=== PATIENT | female | born 1940 | race Two or more races ===

== ENCOUNTER → 2016-10-11 | Outpatient (CLI) | payer MEDICARE, MEDICAID | LOC: SP 10:37 | PROVIDERS: ATTEND Internal Medicine | DX: R22.41 Localized swelling, mass and lump, right lower limb (principal) | CPT/HCPCS: 93971 ==

== ENCOUNTER → 2017-06-01 | Outpatient (CLI) | payer MEDICARE, OTHER ==
--- NOTE | 2017-06-01 17:55 | WOMENS IMAGING REPORT ---
EXAM DESCRIPTION: 3D SCREENING MAMMO BILAT COMPLETED DATE/TIME: 06/01/2017 1:39 pm REASON FOR STUDY: ROUTINE SCREENING; Z12.31 Z12.31 ENCNTR SCREEN MAMMOGRAM FOR MALIGNANT NEOPLASM O F JOLEEN COMPARISON: 2007 TECHNIQUE: Standard craniocaudal and mediolateral oblique views of each breast recorded using digita l acquisition and breast tomosynthesis. LIMITATIONS: None. FINDINGS: Findings present which are benign by mammographic criteria. No suspicious masses, calcifi cations or architectural distortion. Pertinent benign findings: Stable benign bilateral breast parenchymal and vascular calcifications Read with the assistance of CAD. .[facility] [place] - R2 Cenova Version 1.3 .[facility] - R2 Cenova Version 1.3 .[facility] - R2 Cenova Version 2.4 .[facility] - R2 Cenova Version 2.4 .[facility] - R2 Vending Machine Host/Hostess Version 9.2 Benign mammographic findings may include one or more of the following: Smooth masses, popcorn/rim/co arse calcifications, asymmetries, post-procedure changes, and lesions with long-standing stability. IMPRESSION: BENIGN MAMMOGRAPHIC FINDINGS. BIRADS 2 BREAST DENSITY: b. There are scattered areas of fibroglandular density. BIRAD: 2 BENIGN FINDING(S) RECOMMENDATION: RECOMMENDATION: ROUTINE SCREENING Please continue yearly bilateral screening tomosynthesis in May 2018. COMMENT: The patient has been notified of the results by letter per MQSA requirements. Additional no tification policies are in place for contacting patient with suspicious or incomplete findings. Quality ID #[id number]: The [employer] recommends an annual screening mammogram for women aged 40 years or over. This facility utilizes a reminder system to ensure that all patients receive reminder letters, and/or direct phone calls for appointments. This includes reminders for routine scr eening mammograms, diagnostic mammograms, or other Breast Imaging Interventions when appropriate. Th is patient will be placed in the appropriate reminder system. The [employer] (ACR) has developed recommendations for screening MRI of the breast s in certain patient populations, to be used in conjunction with mammography. Breast MRI surveillanc e may be appropriate for women with more than 20% lifetime risk of developing breast cancer as deter mined by genetic testing, significant family history of the disease, or history of mantle radiation f or Hodgkins Disease. ACR Practice Guidelines 2008. DBT Technology DBT is a type of tomographic mammography. With conventional mammography, overlapping breast tissue ma y make lesions difficult to detect, even with good compression. DBT uses an x-ray tube that rotates a round the breast, taking images at different angles. These images are then combined to create thin sl ices of the breast that the radiologist can view as a 3D reconstruction. The Quest app unit can perform full-field digital mammograms (2D imaging); or DBT (3D imaging); or both, in a combination mode that quickly performs both the mammogram and the tomosynthesis scan while the breast is still compressed. PQRS 6045F: Fluoroscopic imaging is not utilized for breast tomosynthesis. TECHNICAL DOCUMENTATION: FINDING NUMBER: (1) ASSESSMENT: (1) JOB ID: [id number] [employer]- All Rights Reserved
== END ==
LOC: WI 13:09
PROVIDERS: ATTEND Internal Medicine
DX: Z12.31 Encounter for screening mammogram for malignant neoplasm of breast (principal)
CPT/HCPCS: 77063; G0202; 77067

== ENCOUNTER 2018-01-09 12:58 | Inpatient (IN) | payer MEDICARE, OTHER ==
[2018-01-09] MEDS ORDERED: ACETAMINOPHEN 325 MG TABLET PO ONE (13:12)
--- NOTE | 2018-01-09 13:21 | ER Document Report ---
ED Extremity Problem, Lower - General Stated Complaint: FALL/HIP,ANKLE Time Seen by Provider: 01/09/18 13:16 Notes: She lost her balance. Twisted her right ankle and fell. Complaining of pain in the right foot and ankle, right hip and low back. Patient was transported by ambulance. Ambulance was unable to get IV. Complaining of severe pain in the ankle. TRAVEL OUTSIDE OF THE [place] IN LAST 30 DAYS: No - HPI Patient complains to provider of: Injury Location: Ankle, Hip Occurred: Just prior to arrival Where: Public place Onset/Duration: Sudden Quality of pain: Throbbing Severity: Moderate Pain Level: 4 Context: Fell, Twisted Recent injury: No Associated symptoms: Unable to bear weight Exacerbated by: Movement, Walking Relieved by: Rest - Related Data Allergies/Adverse Reactions: hydromorphone [From Dilaudid] Adverse Reaction (Mild, Verified 07/24/16 19:47) Generalized Itching kiwi Allergy (Severe, Uncoded 07/17/16 15:42) swelling of airway/lips raw apples Allergy (Severe, Uncoded 07/17/16 15:42) swelling of airway/lips raw carrots Allergy (Severe, Uncoded 07/17/16 15:42) swelling of airway/lips raw celery Allergy (Severe, Uncoded 07/17/16 15:42) swelling of airway/lips raw grapes Allergy (Severe, Uncoded 07/17/16 15:42) swelling of airway/lips raw nuts Allergy (Severe, Uncoded 07/17/16 15:42) swelling of airway/lips raw pears Allergy (Severe, Uncoded 07/17/16 15:42) swelling of airway/lips Past Medical History - General Information source: Patient, [facility] - Social History Smoking Status: Never Smoker Frequency of alcohol use: None Drug Abuse: None Lives with: Family Family History: Reviewed & Not Pertinent, DM - Past Medical History Cardiac Medical History: Reports: Hx Hypercholesterolemia - meds x 3+ years , Hx Hypertension - meds x 3+ years Denies: Hx Atrial Fibrillation, Hx Congestive Heart Failure, Hx Coronary Artery Disease, Hx Heart Attack, Hx Peripheral Vascular Disease, Hx Heart Murmur Neurological Medical History: Reports: Hx Cerebrovascular Accident - 1976, denies neuro deficits. Denies: Hx Seizures Endocrine Medical History: Reports: Hx Hypothyroidism. Denies: Hx Graves' Disease, Hx Hyperthyroidism GI Medical History: Reports: Hx Gastroesophageal Reflux Disease - Prilosec PRN. Denies: Hx Crohn's Disease, Hx Hiatal Hernia, Hx Irritable Bowel, Hx Liver Failure, Hx Pancreatitis, Hx Ulcer Musculoskeltal Medical History: Reports Hx Arthritis, Denies Hx Fibromyalgia, Denies Hx Multiple Sclerosis, Denies Hx Muscular Dystrophy Psychiatric Medical History: Denies: Hx Dementia Traumatic Medical History: Denies: Hx Fractures Past Surgical History: Reports: Hx Hysterectomy - KATIE s, Hx Orthopedic Surgery - tkr left, Hx Tonsillectomy. Denies: Hx Appendectomy, Hx Bowel Surgery , Hx Section, Hx Cholecystectomy, Hx Colostomy, Hx Coronary Artery Bypass Graft, Hx Gastric Bypass Surgery, Hx Herniorrhaphy, Hx Mastectomy, Hx Pacemaker, Hx Tubal Ligation - Immunizations Immunizations up to date: Yes Review of Systems - Review of Systems Constitutional: No symptoms reported EENT: No symptoms reported Cardiovascular: No symptoms reported Respiratory: No symptoms reported Gastrointestinal: No symptoms reported Genitourinary: No symptoms reported Female Genitourinary: No symptoms reported Musculoskeletal: See HPI, Deformity, Ankle swelling, Other - Hip pain, ankle and foot pain on the right Skin: No symptoms reported Hematologic/Lymphatic: No symptoms reported Neurological/Psychological: No symptoms reported Physical Exam - Vital signs Vitals: Temp Pulse Resp BP Pulse Ox 97.8 F 83 23 H 124/81 96 01/09/18 13:24 01/09/18 13:24 01/09/18 13:24 01/09/18 13:24 01/09/18 13:24 Interpretation: Normal - General General appearance: Appears well, Alert - HEENT Head: Normocephalic, Atraumatic Eyes: Normal Pupils: PERRL - Respiratory Respiratory status: No respiratory distress Chest status: Nontender Breath sounds: Normal Chest palpation: Normal - Cardiovascular Rhythm: Regular Heart sounds: Normal auscultation Murmur: No - Abdominal Inspection: Normal Distension: No distension Bowel sounds: Normal Tenderness: Nontender Organomegaly: No organomegaly - Back Back: Normal, Nontender - Extremities General upper extremity: Normal inspection, Nontender, Normal color, Normal ROM , Normal temperature General lower extremity: Normal inspection, Nontender, Tender, Edema, Normal color, Normal ROM, Normal temperature, Other - Tenderness to palpation medial lateral malleolus of the right lower extremity. Tenderness to palpation on the foot.. No: Normal weight bearing, Kyler's sign - Neurological Neuro grossly intact: Yes Cognition: Normal Orientation: AAOx4 [place] Coma Scale Eye Opening: Spontaneous [place] Coma Scale Verbal: Oriented [place] Coma Scale Motor: Obeys Commands [place] Coma Scale Total: 15 Speech: Normal Motor strength normal: LUE, RUE, LLE, RLE Sensory: Normal - Psychological Associated symptoms: Normal affect, Normal mood - Skin Skin Temperature: Warm Skin Moisture: Dry Skin Color: Normal Course - Re-evaluation Re-evalutation: 01/09/18 14:22 Patient with a fracture of the medial lateral malleolus. Consult with orthopedic surgery, Dr. Diaz. They recommend admission to the hospital for surgical treatment. Consult with patient's primary care doctor who admits to the hospital, Dr. Santizo. Will admit to the hospital at this time. Preoperative labs have been ordered. Patient is on Coumadin so will need to be taken off of Coumadin and placed on Lovenox. 01/09/18 14:58 Ankle X-Ray 01/09/18 13:21 IMPRESSION: Acute minimally displaced medial malleolus and distal fibular metaphysis fractures. There is very mild lateral subluxation of the talus with respect to the tibia best shown on mortise view Foot X-Ray 01/09/18 13:21 IMPRESSION: No acute fracture right foot Hip/Pelvis X-Ray 01/09/18 14:10 IMPRESSION: Nothing acute. No acute fracture or dislocation right hip. Lumbar Spine X-Ray 01/09/18 14:10 IMPRESSION: SPONDYLOSIS WITHOUT FRACTURE. 01/09/18 14:58 - Vital Signs Vital signs: Temp Pulse Resp BP Pulse Ox 97.8 F 83 23 H 124/81 96 01/09/18 13:24 01/09/18 13:24 01/09/18 13:24 01/09/18 13:24 01/09/18 13:24 Discharge - Discharge Clinical Impression: Bimalleolar fracture of right ankle Qualifiers: Encounter type: initial encounter Fracture type: closed Qualified Code(s): S82.841A - Displaced bimalleolar fracture of right lower leg, initial encounter for closed fracture Condition: Good Disposition: ADMITTED INPATIENT Admitting Provider: [facility] Admitted: Medical Floor
--- NOTE | 2018-01-09 13:58 | RADIOLOGY REPORT (SQ) ---
EXAM DESCRIPTION: ANKLE RIGHT COMPLETE COMPLETED DATE/TIME: 01/09/2018 1:37 pm REASON FOR STUDY: fall, pain COMPARISON: Right foot three views same date NUMBER OF VIEWS: Three views. TECHNIQUE: AP, lateral, and oblique radiographic images acquired of the right ankle. LIMITATIONS: None. FINDINGS: MINERALIZATION: Osteopenic BONES: Acute minimally displaced medial malleolar and distal fibular metaphysis fractures. JOINTS: Mild lateral subluxation of the talus with respect to the tibia. SOFT TISSUES: Diffuse soft tissue swelling. OTHER: Small dorsal and plantar calcaneal spurs IMPRESSION: Acute minimally displaced medial malleolus and distal fibular metaphysis fractures. The re is very mild lateral subluxation of the talus with respect to the tibia best shown on mortise view TECHNICAL DOCUMENTATION: JOB ID: [id number]- All Rights Reserved Reading location - IP/workstation name: [email or web address]
--- NOTE | 2018-01-09 14:00 | RADIOLOGY REPORT (SQ) ---
EXAM DESCRIPTION: FOOT RIGHT COMPLETE COMPLETED DATE/TIME: 01/09/2018 1:37 pm REASON FOR STUDY: fall, pain COMPARISON: Right ankle films same date NUMBER OF VIEWS: Three views. TECHNIQUE: AP, lateral and oblique radiographic images acquired of the right foot. LIMITATIONS: None. FINDINGS: MINERALIZATION: Osteopenic BONES: Distal fibular and medial malleolar fractures seen on ankle film are difficult to visualize on the foot films. No acute fracture of the talus, calcaneus, tarsal bones, metatarsals, or phalanges. JOINTS: No effusions. SOFT TISSUES: Medial and lateral ankle soft tissue swelling OTHER: Small plantar and dorsal calcaneal spurs IMPRESSION: No acute fracture right foot TECHNICAL DOCUMENTATION: JOB ID: [id number] [employer]- All Rights Reserved Reading location - IP/workstation name: [email or web address] [email or web address]
--- NOTE | 2018-01-09 14:47 | RADIOLOGY REPORT (SQ) ---
EXAM DESCRIPTION: HIP RIGHT AP/LATERAL COMPLETED DATE/TIME: 01/09/2018 2:35 pm REASON FOR STUDY: fall pain COMPARISON: None. NUMBER OF VIEWS: Two views. TECHNIQUE: AP pelvis and additional frog-leg view of the right hip. LIMITATIONS: None. FINDINGS: MINERALIZATION: Normal. RIGHT HIP: No fracture or dislocation. No worrisome bone lesions. LEFT HIP: No fracture or dislocation. No worrisome bone lesions. PUBIS AND ISCHIUM: No fracture. PELVIS: No fracture. SACRUM: No fracture or dislocation. No worrisome bone lesions. LOWER LUMBAR SPINE: Lumbar spine series to follow up SOFT TISSUES: No findings. OTHER: If an occult fracture suspected clinically, consider followup imaging. IMPRESSION: Nothing acute. No acute fracture or dislocation right hip. TECHNICAL DOCUMENTATION: JOB ID: [id number] [employer]- All Rights Reserved Reading location - IP/workstation name: [facility]
--- NOTE | 2018-01-09 14:50 | RADIOLOGY REPORT (SQ) ---
EXAM DESCRIPTION: L SPINE WHOLE COMPLETED DATE/TIME: 01/09/2018 2:35 pm REASON FOR STUDY: fall pain COMPARISON: 04/26/2011 is NUMBER OF VIEWS: Five views including obliques. TECHNIQUE: AP, lateral, oblique, and sacral radiographic images acquired of the lumbar spine. LIMITATIONS: None. FINDINGS: MINERALIZATION: Normal. SEGMENTATION: Normal. No transitional anatomy. ALIGNMENT: Normal. VERTEBRAE: Maintained height. No fracture or worrisome bone lesion. DISCS: Multilevel disc space narrowing with osteophytes. POSTERIOR ELEMENTS: Pedicles and facets are intact. No pars defect or posterior arch defects. Facet arthropathy is present. HARDWARE: None in the spine. PARASPINAL SOFT TISSUES: Normal. PELVIS: Intact as visualized. No fractures or worrisome bone lesions. SI joints intact. OTHER: No other significant finding. IMPRESSION: SPONDYLOSIS WITHOUT FRACTURE. TECHNICAL DOCUMENTATION: JOB ID: [id number] [employer]- All Rights Reserved Reading location - IP/workstation name: [facility]
--- NOTE | 2018-01-09 15:16 | RADIOLOGY REPORT (SQ) ---
EXAM DESCRIPTION: CHEST SINGLE VIEW COMPLETED DATE/TIME: 01/09/2018 2:47 pm REASON FOR STUDY: preop COMPARISON: Chest films 04/02/2015, 08/02/2016, 08/03/2016, 08/05/2016 EXAM PARAMETERS: NUMBER OF VIEWS: One view. TECHNIQUE: Single frontal radiographic view of the chest acquired. RADIATION DOSE: NA LIMITATIONS: Obese patient, portable technique FINDINGS: LUNGS AND PLEURA: No opacities, masses or pneumothorax. No pleural effusion. MEDIASTINUM AND HILAR STRUCTURES: No masses. Contour normal. HEART AND VASCULAR STRUCTURES: Heart normal in size. Normal vasculature. BONES: No acute findings. HARDWARE: None in the chest. OTHER: No other significant finding. IMPRESSION: NO ACUTE RADIOGRAPHIC FINDING IN THE CHEST. TECHNICAL DOCUMENTATION: JOB ID: [id number] [employer]- All Rights Reserved Reading location - IP/workstation name: [email or web address]
[2018-01-09 15:45] LABS: ABSOLUTE BASOPHILS # (AUTO) 0.1 10^3/uL (0.0-0.2); ABSOLUTE EOSINOPHILS # (AUTO) 0.1 10^3/uL (0.0-0.6); ABSOLUTE LYMPHOCYTES (AUTO) 1.5 10^3/uL (0.5-4.7); ABSOLUTE MONOCYTES (AUTO) 0.9 10^3/uL (0.1-1.4); ABSOLUTE NEUT (AUTO) 8.6 10^3/uL (1.7-8.2); BASOPHILS % (AUTO) 0.8 % (0-2); EOSINOPHILS % (AUTO) 1.3 % (0-6); HEMATOCRIT 39.4 % (36.0-47.0); HEMOGLOBIN 12.6 g/dL (12.0-15.5); LYMPHOCYTES % (AUTO) 13.1 % (13-45); MEAN CORPUSCULAR HEMOGLOBIN 28.3 pg (27.0-33.4); MEAN CORPUSCULAR HGB CONC 32.1 g/dL (32.0-36.0); MEAN CORPUSCULAR VOLUME 88 fl (80-97); PLATELET COUNT 338 10^3/uL (150-450); RED BLOOD COUNT 4.47 10^6/uL (3.72-5.28); RED CELL DISTRIBUTION WIDTH 15.9 % (11.5-14.0); SEGMENTED NEUTROPHILS % (AUTO) 76.8 % (42-78); TOTAL CELLS COUNTED % (AUTO) 100 %; WHITE BLOOD COUNT 11.1 10^3/uL (4.0-10.5)
[2018-01-09 16:06] LABS: ALANINE AMINOTRANSFERASE 18 U/L (9-52); ALBUMIN 4.1 g/dL (3.5-5.0); ALKALINE PHOSPHATASE 90 U/L (38-126); ANION GAP 15 (5-19); ASPARTATE AMINO TRANSFERASE 22 U/L (14-36); BILIRUBIN,DIRECT 0.2 mg/dL (0.0-0.4); BILIRUBIN,TOTAL 0.2 mg/dL (0.2-1.3); BLOOD UREA NITROGEN 27 mg/dL (7-20); CALCIUM 9.3 mg/dL (8.4-10.2); CARBON DIOXIDE 27 mmol/L (22-30); CHLORIDE 101 mmol/L (98-107); GLUCOSE 155 mg/dL (75-110); SODIUM 142.9 mmol/L (137-145); TOTAL PROTEIN 8.6 g/dL (6.3-8.2)
[2018-01-09] MEDS ORDERED: (PENDING PHARMACY ID) (Solifenacin Succinate [Vesicare] 10 MG) PO SCH (17:00)
[2018-01-09] MEDS ORDERED: (PENDING PHARMACY ID) (Pravastatin Sodium [Pravachol] 40 MG) PO SCH (17:00)
[2018-01-09] MEDS ORDERED: (PENDING PHARMACY ID) (Pramipexole Di-Hcl [Pramipexole Dihydrochloride] 0.125 MG) PO SCH (17:00)
[2018-01-09] MEDS ORDERED: (PENDING PHARMACY ID) (Valsartan/Hydrochlorothiazide [Valsartan-Hctz 320-25 Mg Tab] 1 TAB) PO SCH (17:00)
[2018-01-09 17:12] LABS: PHOSPHORUS 3.9 mg/dL (2.5-4.5)
[2018-01-09 17:28] LABS: CREATINE KINASE MB 1.06 ng/mL (<4.55)
[2018-01-09 17:29] LABS: FREE T4 (FREE THYROXINE) 1.27 ng/dL (0.78-2.19)
[2018-01-09 17:34] LABS: TROPONIN I < 0.012 ng/mL
[2018-01-09 17:43] LABS: THYROID STIMULATING HORMONE 1.64 uIU/mL (0.47-4.68)
[2018-01-09 18:22] LABS: APPEARANCE,URINE CLEAR; BILIRUBIN,URINE NEGATIVE (NEGATIVE); COLOR,URINE YELLOW; GLUCOSE, URINE NEGATIVE (NEGATIVE); KETONES,URINE NEGATIVE (NEGATIVE); LEUKOCYTE ESTERASE,URINE NEGATIVE (NEGATIVE); NITRITE,URINE NEGATIVE (NEGATIVE); PROTEIN,URINE NEGATIVE (NEGATIVE); URINE SPECIFIC GRAVITY 1.009; UROBILINOGEN,URINE NEGATIVE mg/dL (<2.0)
[2018-01-09] MEDS ORDERED: HYDROCHLOROTHIAZIDE 25 MG TABLET PO ONE (18:30)
[2018-01-09] MEDS: NORMAL SALINE 1000 ML 1,000 ML IV PRN (18:30)
[2018-01-09] MEDS ORDERED: VALSARTAN 160 MG TABLET PO ONE (18:30)
[2018-01-09] MEDS ORDERED: AMLODIPINE BESYLATE 10 MG TABLET PO ONE (18:30)
[2018-01-09] MEDS ORDERED: PRAMIPEXOLE DI-HCL 0.25 MG TABLET PO ONE (18:30)
[2018-01-09] MEDS ORDERED: LANSOPRAZOLE 30 MG TAB.RAP.DR PO ONE (18:30)
[2018-01-09] MEDS: METFORMIN HCL 500 MG TABLET PO SCH (18:30)
[2018-01-09] MEDS: PREGABALIN 75 MG CAPSULE PO SCH (18:31)
[2018-01-09] MEDS: HYDROCHLOROTHIAZIDE 25 MG TABLET PO SCH (18:31)
[2018-01-09] MEDS: OXYCODONE-ACETAMINOPHEN 5-325 MG TABLET PO PRN ×2 (18:32→22:55)
[2018-01-09 18:39] LABS: URINE AMPHETAMINES SCREEN NEGATIVE; URINE BARBITURATES SCREEN NEGATIVE; URINE BENZODIAZEPINES SCREEN NEGATIVE; URINE COCAINE SCREEN NEGATIVE; URINE MARIJUANA (THC) SCREEN NEGATIVE; URINE METHADONE SCREEN NEGATIVE; URINE PHENCYCLIDINE SCREEN NEGATIVE
[2018-01-09 18:45] LABS: INTERNATIONAL RATION (INR) 2.11; PROTHROMBIN TIME 24.7 SEC (11.4-15.4)
--- NOTE | 2018-01-09 20:44 | PDOC H&P ---
History of Present Illness Admission Date/PCP: 01/09/18 14:35 ZORA RUIZ MD History of Present Illness: SAJAN HILL is a 77 year old female,She has a history of deep vein thrombosis on chronic anticoagulation with Coumadin, type II diabetes mellitus , morbid obesity she was out with family, twisted her right ankle lost balance fell and sustained fracture the left ankle bones, she sustained distal fibular fracture with mild subluxation of the talus.There was no antecedent chest pain, shortness of breath or loss of consciousness Past Medical History Cardiac Medical History: Reports: Hyperlipidema - meds x 3+ years , Hypertension - meds x 3+ years Neurological Medical History: Denies: Seizures Endocrine Medical History: Reports: Hypothyroidism Denies: Hyperthyroidism GI Medical History: Reports: Gastroesophageal Reflux Disease - Prilosec PRN Musculoskeltal Medical History: Reports: Arthritis Denies: Fibromyalgia Psychiatric Medical History: Denies: Dementia Past Surgical History Past Surgical History: Reports: Hysterectomy - KATIE 1969', Orthopedic Surgery - tkr left, Tonsillectomy Denies: Amputation, Appendectomy, Section, Cholecystectomy, Colostomy, Coronary Artery Bypass Graft, Gastric Bypass Surgery, Herniorrhaphy, Mastectomy, Pacemaker, Tubal Ligation Social History Lives with: Family Smoking Status: Never Smoker Frequency of Alcohol Use: None Hx Recreational Drug Use: No Drugs: None Hx Prescription Drug Abuse: No - Advance Directive Resuscitation Status: Full Code Family History Family History: Reviewed & Not Pertinent, DM Parental Family History Reviewed: Yes Children Family History Reviewed: Yes Sibling(s) Family History Reviewed.: Yes Medication/Allergy Home Medications: Amlodipine Besylate [Norvasc 10 mg Tablet] 10 mg PO DAILY 01/09/18 Hydrochlorothiazide [Hydrodiuril 25 mg Tablet] 25 mg PO DAILY 01/09/18 Metformin HCl [Glucophage] 1,000 mg PO DAILY 01/09/18 Omeprazole 40 mg PO DAILY 01/09/18 Pramipexole Di-HCl [Pramipexole Dihydrochloride] 0.125 mg PO DAILY 01/09/18 Pravastatin Sodium [Pravachol] 40 mg PO DAILY 01/09/18 Pregabalin [Lyrica 75 mg Capsule] 75 mg PO Q12 01/09/18 Solifenacin Succinate [Vesicare] 10 mg PO DAILY 01/09/18 Valsartan/Hydrochlorothiazide [Valsartan-Hctz 320-25 mg Tab] 1 tab PO DAILY Warfarin Sodium [Coumadin 4 mg Tablet] 4 mg PO DAILY 01/09/18 Allergies/Adverse Reactions: hydromorphone [From Dilaudid] Adverse Reaction (Mild, Verified 07/24/16 19:47) Generalized Itching kiwi Allergy (Severe, Uncoded 07/17/16 15:42) swelling of airway/lips raw apples Allergy (Severe, Uncoded 07/17/16 15:42) swelling of airway/lips raw carrots Allergy (Severe, Uncoded 07/17/16 15:42) swelling of airway/lips raw celery Allergy (Severe, Uncoded 07/17/16 15:42) swelling of airway/lips raw grapes Allergy (Severe, Uncoded 07/17/16 15:42) swelling of airway/lips raw nuts Allergy (Severe, Uncoded 07/17/16 15:42) swelling of airway/lips raw pears Allergy (Severe, Uncoded 07/17/16 15:42) swelling of airway/lips Review of Systems Constitutional: ABSENT: chills, fever(s), headache(s), weight gain, weight loss Eyes: ABSENT: visual disturbances Ears: ABSENT: hearing changes Cardiovascular: ABSENT: chest pain, dyspnea on exertion, edema, orthropnea, palpitations Respiratory: ABSENT: cough, hemoptysis Gastrointestinal: ABSENT: abdominal pain, constipation, diarrhea, hematemesis, hematochezia, nausea, vomiting Genitourinary: ABSENT: dysuria, hematuria Musculoskeletal: ABSENT: joint swelling Integumentary: ABSENT: rash, wounds Neurological: ABSENT: abnormal gait, abnormal speech, confusion, dizziness, focal weakness, syncope Psychiatric: ABSENT: anxiety, depression, homidical ideation, suicidal ideation Endocrine: ABSENT: cold intolerance, heat intolerance, menstrual abnormalities, polydipsia, polyuria Hematologic/Lymphatic: ABSENT: easy bleeding, easy bruising, lymphadenopathy Physical Exam Vital Signs: Temp Pulse Resp BP Pulse Ox 98.0 F 71 18 108/59 L 95 01/09/18 19:26 01/09/18 19:26 01/09/18 19:26 01/09/18 19:26 01/09/18 19:26 Intake & Output 01/08/18 01/09/1801/10/18 06:59 06:59 06:59 Output Total 500 Balance -500 Weight 129.6 kg General appearance: PRESENT: no acute distress Head exam: PRESENT: atraumatic, normocephalic Eye exam: PRESENT: PERRLA. ABSENT: scleral icterus Mouth exam: PRESENT: moist, tongue midline Neck exam: PRESENT: full ROM Respiratory exam: PRESENT: clear to auscultation aliya Cardiovascular exam: PRESENT: RRR, +S1, +S2 Pulses: PRESENT: normal dorsalis pedis pul, +2 pedal pulses bilateral Vascular exam: PRESENT: normal capillary refill GI/Abdominal exam: PRESENT: normal bowel sounds, soft Rectal exam: PRESENT: deferred Extremities exam: PRESENT: joint swelling, tenderness, other Neurological exam: PRESENT: alert, awake, oriented to person, oriented to place , oriented to time, oriented to situation, CN II-XII grossly intact. ABSENT: motor sensory deficit Psychiatric exam: PRESENT: appropriate affect, normal mood Skin exam: PRESENT: dry, intact, warm Results Laboratory Results: 01/09/18 15:28 01/09/18 15:28 01/09/18 01/09/18 01/09/18 15:28 15:28 15:28 WBC 11.1 H RBC 4.47 Hgb 12.6 Hct 39.4 MCV 88 MCH 28.3 MCHC 32.1 RDW 15.9 H Plt Count 338 Seg Neutrophils % 76.8 Lymphocytes % 13.1 Monocytes % 8.0 Eosinophils % 1.3 Basophils % 0.8 Absolute Neutrophils 8.6 H Absolute Lymphocytes 1.5 Absolute Monocytes 0.9 Absolute Eosinophils 0.1 Absolute Basophils 0.1 Sodium 142.9 Potassium 4.0 Chloride 101 Carbon Dioxide 27 Anion Gap 15 BUN 27 H Creatinine 1.25 Est GFR ( Amer) 51 L Est GFR (Non-Af Amer) 42 L Glucose 155 H Calcium 9.3 Phosphorus 3.9 Magnesium 1.9 Total Bilirubin 0.2 AST 22 ALT 18 Alkaline Phosphatase 90 Ammonia Total Protein 8.6 H Albumin 4.1 Amylase 36 Lipase 94.0 TSH Free T4 Urine Color Urine Appearance Urine pH Ur Specific Moore Urine Protein Urine Glucose (UA) Urine Ketones Urine Blood Urine Nitrite Ur Leukocyte Esterase Urine WBC (Auto) Urine RBC (Auto) 01/09/18 01/09/18 01/09/18 15:28 17:13 17:50 WBC RBC Hgb Hct MCV MCH MCHC RDW Plt Count Seg Neutrophils % Lymphocytes % Monocytes % Eosinophils % Basophils % Absolute Neutrophils Absolute Lymphocytes Absolute Monocytes Absolute Eosinophils Absolute Basophils Sodium Potassium Chloride Carbon Dioxide Anion Gap BUN Creatinine Est GFR ( Amer) Est GFR (Non-Af Amer) Glucose Calcium Phosphorus Magnesium Total Bilirubin AST ALT Alkaline Phosphatase Ammonia < 8.7 L Total Protein Albumin Amylase Lipase TSH 1.64 Free T4 1.27 Urine Color YELLOW Urine Appearance CLEAR Urine pH 6.0 Ur Specific Moore 1.009 Urine Protein NEGATIVE Urine Glucose (UA) NEGATIVE Urine Ketones NEGATIVE Urine Blood SMALL H Urine Nitrite NEGATIVE Ur Leukocyte Esterase NEGATIVE Urine WBC (Auto) 4 Urine RBC (Auto) 1 01/09/18 01/09/18 01/09/18 15:28 15:28 15:28 Creatine Kinase 179 H CK-MB (CK-2) 1.06 Troponin I < 0.012 NT-Pro-B Natriuret Pep 102 Impressions: Ankle X-Ray 01/09/18 13:21 IMPRESSION: Acute minimally displaced medial malleolus and distal fibular metaphysis fractures. There is very mild lateral subluxation of the talus with respect to the tibia best shown on mortise view Foot X-Ray 01/09/18 13:21 IMPRESSION: No acute fracture right foot Hip/Pelvis X-Ray 01/09/18 14:10 IMPRESSION: Nothing acute. No acute fracture or dislocation right hip. Lumbar Spine X-Ray 01/09/18 14:10 IMPRESSION: SPONDYLOSIS WITHOUT FRACTURE. Chest X-Ray 01/09/18 14:15 IMPRESSION: NO ACUTE RADIOGRAPHIC FINDING IN THE CHEST. 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: Diabetes mellitus local intermodal truck driver insulin use: with local intermodal truck driver use Diabetes mellitus complication status: with neurologic complications Diabetes mellitus complication detail: with polyneuropathy Qualified Code(s): E11.42 - Type 2 diabetes mellitus with diabetic polyneuropathy; Z79.4 - intermediate project manager (current) use of insulin; Z79.4 - prison (current) use of insulin; Z79.4 - intermediate project manager ( current) use of insulin; Z79.4 - prison (current) use of insulin Is this a current diagnosis for this admission?: Yes (3) Diabetes mellitus type II, controlled Qualifiers: Diabetes mellitus local intermodal truck driver insulin use: without local intermodal truck driver use Diabetes mellitus complication status: without complication Qualified Code(s): E11.9 - Type 2 diabetes mellitus without complications Is this a current diagnosis for this admission?: Yes Plan: The INR is therapeutic, hold Coumadin but no need for Lovenox bridge, she is on chronic under coagulation because of DVT and PE
--- NOTE | 2018-01-09 22:45 | EKG REPORT ---
SEVERITY:- ABNORMAL ECG - SINUS RHYTHM PROLONGED QT INTERVAL : Confirmed by: Emerald Cabrera 09-Jan-2018 19:44:43
[2018-01-09] MEDS: TOLTERODINE TARTRATE 1 MG TABLET PO SCH (22:55)
[2018-01-09] MEDS: ATORVASTATIN CALCIUM 10 MG TABLET PO SCH (22:55)
[2018-01-09 23:39] LABS: CREATINE KINASE MB 1.01 ng/mL (<4.55)
[2018-01-09 23:43] LABS: TROPONIN I < 0.012 ng/mL
[2018-01-10 05:16] LABS: ABSOLUTE BASOPHILS # (AUTO) 0.1 10^3/uL (0.0-0.2); ABSOLUTE EOSINOPHILS # (AUTO) 0.2 10^3/uL (0.0-0.6); ABSOLUTE LYMPHOCYTES (AUTO) 1.3 10^3/uL (0.5-4.7); ABSOLUTE MONOCYTES (AUTO) 0.9 10^3/uL (0.1-1.4); ABSOLUTE NEUT (AUTO) 5.9 10^3/uL (1.7-8.2); EOSINOPHILS % (AUTO) 2.3 % (0-6); HEMATOCRIT 33.8 % (36.0-47.0); HEMOGLOBIN 11.1 g/dL (12.0-15.5); LYMPHOCYTES % (AUTO) 15.5 % (13-45); MEAN CORPUSCULAR HEMOGLOBIN 28.5 pg (27.0-33.4); MEAN CORPUSCULAR HGB CONC 32.9 g/dL (32.0-36.0); MEAN CORPUSCULAR VOLUME 87 fl (80-97); PLATELET COUNT 287 10^3/uL (150-450); RED CELL DISTRIBUTION WIDTH 16.1 % (11.5-14.0); SEGMENTED NEUTROPHILS % (AUTO) 70.2 % (42-78); TOTAL CELLS COUNTED % (AUTO) 100 %; WHITE BLOOD COUNT 8.4 10^3/uL (4.0-10.5)
[2018-01-10 05:21] LABS: INTERNATIONAL RATION (INR) 2.06; PROTHROMBIN TIME 24.2 SEC (11.4-15.4)
[2018-01-10 05:41] LABS: ALANINE AMINOTRANSFERASE 17 U/L (9-52); ALBUMIN 3.2 g/dL (3.5-5.0); ALKALINE PHOSPHATASE 65 U/L (38-126); ANION GAP 13 (5-19); ASPARTATE AMINO TRANSFERASE 18 U/L (14-36); BILIRUBIN,DIRECT 0.3 mg/dL (0.0-0.4); BILIRUBIN,TOTAL 0.3 mg/dL (0.2-1.3); BLOOD UREA NITROGEN 22 mg/dL (7-20); CALCIUM 8.8 mg/dL (8.4-10.2); CARBON DIOXIDE 26 mmol/L (22-30); CHLORIDE 105 mmol/L (98-107); CHOLESTEROL 122.94 mg/dL (0-200); CREATINE KINASE 190 U/L (30-135); GLUCOSE 155 mg/dL (75-110); POTASSIUM 4.2 mmol/L (3.6-5.0); SODIUM 144.1 mmol/L (137-145); TOTAL PROTEIN 7.1 g/dL (6.3-8.2); TRIGLYCERIDES 137 mg/dL (<150)
[2018-01-10 05:47] LABS: DIRECT LDL 58 mg/dL (<100)
[2018-01-10 05:48] LABS: CREATINE KINASE MB 0.76 ng/mL (<4.55)
[2018-01-10 05:52] LABS: TROPONIN I < 0.012 ng/mL
[2018-01-10] MEDS: LANSOPRAZOLE 30 MG TAB.RAP.DR PO SCH (06:19)
[2018-01-10] MEDS: PREGABALIN 75 MG CAPSULE PO SCH ×2 (06:19→17:46)
[2018-01-10] MEDS: TOLTERODINE TARTRATE 1 MG TABLET PO SCH ×2 (09:46→21:44)
[2018-01-10] MEDS: PRAMIPEXOLE DI-HCL 0.25 MG TABLET PO SCH (09:47)
[2018-01-10] MEDS: VALSARTAN 160 MG TABLET PO SCH (09:48)
[2018-01-10] MEDS: AMLODIPINE BESYLATE 10 MG TABLET PO SCH (09:48)
[2018-01-10] MEDS: HYDROCHLOROTHIAZIDE 25 MG TABLET PO SCH ×2 (09:48→17:46)
[2018-01-10] MEDS: OXYCODONE-ACETAMINOPHEN 5-325 MG TABLET PO PRN ×2 (13:27→18:34)
[2018-01-10] MEDS: METFORMIN HCL 500 MG TABLET PO SCH (17:46)
--- NOTE | 2018-01-10 19:01 | PDOC CONSULTATION ---
Consultation Consult Date: 01/10/18 Attending physician:: ZORA RUIZ Consult reason:: Right ankle fracture History of Present Illness Admission Date/PCP: 01/09/18 14:35 ZORA RUIZ MD History of Present Illness: SAJAN HILL is a 77 year old female past post fall onto her right ankle suffering a bimalleolar ankle fracture. Since the fall patient cannot put weight on it. Injury happened yesterday. Complains of swelling. Pain with motion and weightbearing. No other extremity injuries. Previous femur fracture was treated by Dr. Dela Cruz. Does have multiple comorbidities including obesity and diabetes. Current and currently is on Coumadin for previous DVTs. Patient admitted due to a size and inability to the care of herself. Past Medical History Cardiac Medical History: Reports: Hyperlipidema - meds x 3+ years , Hypertension - meds x 3+ years Denies: Atrial Fibrillation, Congestive Heart Failure, Coronary Artery Disease, Myocardial Infarction, Peripheral Vascular Disease, Heart Murmur Neurological Medical History: Denies: Seizures Endocrine Medical History: Reports: Hypothyroidism Denies: Hyperthyroidism GI Medical History: Reports: Gastroesophageal Reflux Disease - Prilosec PRN Denies: Crohn's Disease, Hiatal Hernia Musculoskeltal Medical History: Reports: Arthritis Denies: Fibromyalgia Psychiatric Medical History: Denies: Dementia Past Surgical History Past Surgical History: Reports: Hysterectomy - KATIE 1970's, Orthopedic Surgery - tkr left, Tonsillectomy Denies: Amputation, Appendectomy, Section, Cholecystectomy, Colostomy, Coronary Artery Bypass Graft, Gastric Bypass Surgery, Herniorrhaphy, Mastectomy, Pacemaker, Tubal Ligation Social History Lives with: Family Smoking Status: Never Smoker Frequency of Alcohol Use: None Hx Recreational Drug Use: No Drugs: None Hx Prescription Drug Abuse: No - Advance Directive Resuscitation Status: Full Code Family History Family History: Reviewed & Not Pertinent, DM Parental Family History Reviewed: No Children Family History Reviewed: Yes Sibling(s) Family History Reviewed.: No Medication/Allergy Home Medications: Amlodipine Besylate [Norvasc 10 mg Tablet] 10 mg PO DAILY 01/09/18 Hydrochlorothiazide [Hydrodiuril 25 mg Tablet] 25 mg PO DAILY 01/09/18 Metformin HCl [Glucophage] 1,000 mg PO DAILY 01/09/18 Omeprazole 40 mg PO DAILY 01/09/18 Pramipexole Di-HCl [Pramipexole Dihydrochloride] 0.125 mg PO DAILY 01/09/18 Pravastatin Sodium [Pravachol] 40 mg PO DAILY 01/09/18 Pregabalin [Lyrica 75 mg Capsule] 75 mg PO Q12 01/09/18 Solifenacin Succinate [Vesicare] 10 mg PO DAILY 01/09/18 Valsartan/Hydrochlorothiazide [Valsartan-Hctz 320-25 mg Tab] 1 tab PO DAILY Warfarin Sodium [Coumadin 4 mg Tablet] 4 mg PO DAILY 01/09/18 Allergies/Adverse Reactions: hydromorphone [From Dilaudid] Adverse Reaction (Mild, Verified 07/24/16 19:47) Generalized Itching kiwi Allergy (Severe, Uncoded 07/17/16 15:42) swelling of airway/lips raw apples Allergy (Severe, Uncoded 07/17/16 15:42) swelling of airway/lips raw carrots Allergy (Severe, Uncoded 07/17/16 15:42) swelling of airway/lips raw celery Allergy (Severe, Uncoded 07/17/16 15:42) swelling of airway/lips raw grapes Allergy (Severe, Uncoded 07/17/16 15:42) swelling of airway/lips raw nuts Allergy (Severe, Uncoded 07/17/16 15:42) swelling of airway/lips raw pears Allergy (Severe, Uncoded 07/17/16 15:42) swelling of airway/lips Review of Systems Constitutional: ABSENT: fever(s), headache(s) Eyes: ABSENT: visual disturbances Ears: ABSENT: hearing changes Nose, Mouth, and Throat: ABSENT: mouth pain, sore throat Cardiovascular: ABSENT: chest pain, edema, palpitations Respiratory: ABSENT: cough, hemoptysis Gastrointestinal: ABSENT: nausea, vomiting Genitourinary: ABSENT: dysuria, hematuria Musculoskeletal: PRESENT: as per HPI, muscle weakness. ABSENT: deformity Integumentary: ABSENT: lesions, rash, wounds Neurological: ABSENT: numbness, paresthesias, syncope Psychiatric: ABSENT: hallucinations, homidical ideation, suicidal ideation Endocrine: ABSENT: cold intolerance, heat intolerance, polyphagia Hematologic/Lymphatic: ABSENT: easy bruising, lymphadenopathy Allergic/Immunologic: ABSENT: seasonal rhinorrhea Physical Exam Vital Signs: Temp Pulse Resp BP Pulse Ox 37.1 C 91 19 98/55 L 92 01/10/18 15:43 01/10/18 15:43 01/10/18 15:43 01/10/18 15:43 01/10/18 15:43 Intake & Output 01/09/18 01/10/18 01/11/18 06:59 06:59 06:59 Intake Total 1010 Output Total 1200 400 Balance -1200 610 Weight 128.4 kg General appearance: PRESENT: no acute distress Eye exam: PRESENT: EOMI, PERRLA. ABSENT: nystagmus Ear exam: PRESENT: normal external ear exam Mouth exam: PRESENT: neck supple Neck exam: ABSENT: lymphadenopathy, thyromegaly, tracheal deviation Respiratory exam: PRESENT: symmetrical, unlabored. ABSENT: accessory muscle use Vascular exam: PRESENT: normal capillary refill GI/Abdominal exam: PRESENT: soft. ABSENT: organolmegaly, tenderness Neurological exam: PRESENT: alert, awake, oriented to person, oriented to place , oriented to time, oriented to situation Psychiatric exam: PRESENT: appropriate affect, normal mood Skin exam: PRESENT: intact. ABSENT: erythema, rash Adult Front & Back Image: 1 - Splint is intact. Swelling of the lower extremity. Tender to palpation medial laterally. Good capillary refill with positive EHL and FHL. No signs of fracture blisters or skin tears. Obvious deformities. Good sensation to light touch. Results Laboratory Results: 01/10/18 04:53 01/10/18 04:53 01/10/18 01/10/18 04:53 04:53 WBC 8.4 RBC 3.90 Hgb 11.1 L Hct 33.8 L MCV 87 MCH 28.5 MCHC 32.9 RDW 16.1 H Plt Count 287 Seg Neutrophils % 70.2 Lymphocytes % 15.5 Monocytes % 11.0 Eosinophils % 2.3 Basophils % 1.0 Absolute Neutrophils 5.9 Absolute Lymphocytes 1.3 Absolute Monocytes 0.9 Absolute Eosinophils 0.2 Absolute Basophils 0.1 Sodium 144.1 Potassium 4.2 Chloride 105 Carbon Dioxide 26 Anion Gap 13 BUN 22 H Creatinine 1.07 Est GFR ( Amer) > 60 Est GFR (Non-Af Amer) 50 L Glucose 155 H Calcium 8.8 Total Bilirubin 0.3 AST 18 ALT 17 Alkaline Phosphatase 65 Total Protein 7.1 Albumin 3.2 L Triglycerides 137 Cholesterol 122.94 LDL Cholesterol Direct 58 VLDL Cholesterol 27.0 HDL Cholesterol 37 L 01/09/18 01/09/18 01/09/18 15:28 15:28 15:28 Creatine Kinase 179 H CK-MB (CK-2) 1.06 Troponin I < 0.012 NT-Pro-B Natriuret Pep 102 01/09/18 01/09/18 01/10/18 23:00 23:00 04:53 Creatine Kinase 221 H 190 H CK-MB (CK-2) 1.01 Troponin I < 0.012 NT-Pro-B Natriuret Pep 01/10/18 04:53 Creatine Kinase CK-MB (CK-2) 0.76 Troponin I < 0.012 NT-Pro-B Natriuret Pep Impressions: Ankle X-Ray 01/09/18 13:21 IMPRESSION: Acute minimally displaced medial malleolus and distal fibular metaphysis fractures. There is very mild lateral subluxation of the talus with respect to the tibia best shown on mortise view Foot X-Ray 01/09/18 13:21 IMPRESSION: No acute fracture right foot Hip/Pelvis X-Ray 01/09/18 14:10 IMPRESSION: Nothing acute. No acute fracture or dislocation right hip. Lumbar Spine X-Ray 01/09/18 14:10 IMPRESSION: SPONDYLOSIS WITHOUT FRACTURE. Chest X-Ray 01/09/18 14:15 IMPRESSION: NO ACUTE RADIOGRAPHIC FINDING IN THE CHEST. Assessment & Plan - Diagnosis (1) Bimalleolar fracture of right ankle Qualifiers: Encounter type: initial encounter Fracture type: closed Qualified Code(s) : S82.841A - Displaced bimalleolar fracture of right lower leg, initial encounter for closed fracture Is this a current diagnosis for this admission?: Yes Plan: 77-year-old female with bimalleolar ankle fracture on the right. Fracture is displaced and will require open reduction internal fixation. Patient has significant comorbidities 1 of them requiring Coumadin and her INR currently is 2.0. I recommend holding the Coumadin and schedule her surgery for Sunday. The meantime bedrest and nonweightbearing of the right lower extremity. Risk and benefits were discussed with the patient and she agreed to proceed with surgery. Discussed the plan with her daughter as well on the phone. Meantime pain control and Ice and elevate.
--- NOTE | 2018-01-10 21:09 | PDOC PROGRESS REPORT ---
Subjective Progress Note for:: 01/10/18 Subjective:: Patient is seen by the bedside, no new complaints Reason For Visit: FRACTURE OF RIGHT FIBULA Physical Exam Vital Signs: Temp Pulse Resp BP Pulse Ox 99.0 F 92 15 103/62 90 L 01/10/18 19:19 01/10/18 19:19 01/10/18 19:19 01/10/18 19:19 01/10/18 19:19 Intake & Output 01/09/18 01/10/18 01/11/18 06:59 06:59 06:59 Intake Total 1010 Output Total 1200 400 Balance -1200 610 Weight 128.4 kg General appearance: PRESENT: no acute distress Eye exam: PRESENT: PERRLA Respiratory exam: PRESENT: clear to auscultation aliya Cardiovascular exam: PRESENT: +S1, +S2 GI/Abdominal exam: PRESENT: soft Neurological exam: PRESENT: alert Results Laboratory Results: 01/10/18 04:53 01/10/18 04:53 01/10/18 01/10/18 04:53 04:53 WBC 8.4 RBC 3.90 Hgb 11.1 L Hct 33.8 L MCV 87 MCH 28.5 MCHC 32.9 RDW 16.1 H Plt Count 287 Seg Neutrophils % 70.2 Lymphocytes % 15.5 Monocytes % 11.0 Eosinophils % 2.3 Basophils % 1.0 Absolute Neutrophils 5.9 Absolute Lymphocytes 1.3 Absolute Monocytes 0.9 Absolute Eosinophils 0.2 Absolute Basophils 0.1 Sodium 144.1 Potassium 4.2 Chloride 105 Carbon Dioxide 26 Anion Gap 13 BUN 22 H Creatinine 1.07 Est GFR ( Amer) > 60 Est GFR (Non-Af Amer) 50 L Glucose 155 H Calcium 8.8 Total Bilirubin 0.3 AST 18 ALT 17 Alkaline Phosphatase 65 Total Protein 7.1 Albumin 3.2 L Triglycerides 137 Cholesterol 122.94 LDL Cholesterol Direct 58 VLDL Cholesterol 27.0 HDL Cholesterol 37 L 01/09/18 01/09/18 01/09/18 15:28 15:28 15:28 Creatine Kinase 179 H CK-MB (CK-2) 1.06 Troponin I < 0.012 NT-Pro-B Natriuret Pep 102 01/09/18 01/09/18 01/10/18 23:00 23:00 04:53 Creatine Kinase 221 H 190 H CK-MB (CK-2) 1.01 Troponin I < 0.012 NT-Pro-B Natriuret Pep 01/10/18 04:53 Creatine Kinase CK-MB (CK-2) 0.76 Troponin I < 0.012 NT-Pro-B Natriuret Pep Impressions: Ankle X-Ray 01/09/18 13:21 IMPRESSION: Acute minimally displaced medial malleolus and distal fibular metaphysis fractures. There is very mild lateral subluxation of the talus with respect to the tibia best shown on mortise view Foot X-Ray 01/09/18 13:21 IMPRESSION: No acute fracture right foot Hip/Pelvis X-Ray 01/09/18 14:10 IMPRESSION: Nothing acute. No acute fracture or dislocation right hip. Lumbar Spine X-Ray 01/09/18 14:10 IMPRESSION: SPONDYLOSIS WITHOUT FRACTURE. Chest X-Ray 01/09/18 14:15 IMPRESSION: NO ACUTE RADIOGRAPHIC FINDING IN THE CHEST. 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 use: with fci use Diabetes mellitus complication status: with neurologic complications Diabetes mellitus complication detail: with polyneuropathy Qualified Code(s): E11.42 - Type 2 diabetes mellitus with diabetic polyneuropathy; Z79.4 - skilled nursing (current) use of insulin; Z79.4 - intermediate manager (current) use of insulin; Z79.4 - intermediate manager ( current) use of insulin; Z79.4 - skilled nursing (current) use of insulin Is this a current diagnosis for this admission?: Yes (3) Diabetes mellitus type II, controlled Qualifiers: Diabetes mellitus fci insulin use: without fci use Diabetes mellitus complication status: without complication Qualified Code(s): E11.9 - Type 2 diabetes mellitus without complications Is this a current diagnosis for this admission?: Yes
[2018-01-10] MEDS: ATORVASTATIN CALCIUM 10 MG TABLET PO SCH (21:43)
[2018-01-10] MEDS: NORMAL SALINE 1000 ML 1,000 ML IV PRN (21:43)
[2018-01-11 06:08] LABS: ABSOLUTE BASOPHILS # (AUTO) 0.1 10^3/uL (0.0-0.2); ABSOLUTE EOSINOPHILS # (AUTO) 0.3 10^3/uL (0.0-0.6); ABSOLUTE LYMPHOCYTES (AUTO) 2.1 10^3/uL (0.5-4.7); ABSOLUTE NEUT (AUTO) 5.3 10^3/uL (1.7-8.2); BASOPHILS % (AUTO) 1.2 % (0-2); EOSINOPHILS % (AUTO) 3.6 % (0-6); HEMATOCRIT 34.1 % (36.0-47.0); HEMOGLOBIN 11.2 g/dL (12.0-15.5); LYMPHOCYTES % (AUTO) 23.4 % (13-45); MEAN CORPUSCULAR HEMOGLOBIN 28.9 pg (27.0-33.4); MEAN CORPUSCULAR HGB CONC 32.9 g/dL (32.0-36.0); MEAN CORPUSCULAR VOLUME 88 fl (80-97); MONOCYTES % (AUTO) 11.2 % (3-13); PLATELET COUNT 282 10^3/uL (150-450); RED BLOOD COUNT 3.87 10^6/uL (3.72-5.28); RED CELL DISTRIBUTION WIDTH 16.2 % (11.5-14.0); SEGMENTED NEUTROPHILS % (AUTO) 60.6 % (42-78); TOTAL CELLS COUNTED % (AUTO) 100 %; WHITE BLOOD COUNT 8.8 10^3/uL (4.0-10.5)
--- NOTE | 2018-01-11 06:12 | PDOC PROGRESS REPORT ---
Subjective Progress Note for:: 01/11/18 Reason For Visit: FRACTURE OF RIGHT FIBULA 77-year-old female known to me from previous knee arthroplasty now with a right bimalleolar ankle fracture. Patient is anticoagulated for history of DVT. This precludes emergent open reduction internal fixation of the fracture. Physical Exam Vital Signs: Temp Pulse Resp BP Pulse Ox 36.9 C 84 18 102/70 97 01/10/18 23:00 01/10/18 23:00 01/10/18 23:00 01/10/18 23:00 01/10/18 23:00 Intake & Output 01/09/18 01/10/18 01/11/18 06:59 06:59 06:59 Intake Total 1410 Output Total 1200 1050 Balance -1200 360 Weight 128.4 kg 128.6 kg General appearance: PRESENT: no acute distress Head exam: PRESENT: normocephalic Respiratory exam: PRESENT: unlabored Cardiovascular exam: PRESENT: RRR Vascular exam: PRESENT: normal capillary refill GI/Abdominal exam: PRESENT: soft Rectal exam: PRESENT: deferred Extremities exam: PRESENT: other - Right lower extremity immobilized in posterior plaster splint. Neurological exam: PRESENT: alert - Brisk capillary refill to the toes. Sensory examination is intact., awake, oriented to person, oriented to place, oriented to time, oriented to situation. ABSENT: motor sensory deficit Skin exam: PRESENT: dry, intact, warm. ABSENT: cyanosis, rash Results Laboratory Results: 01/09/18 01/09/18 01/09/18 15:28 15:28 15:28 Creatine Kinase 179 H CK-MB (CK-2) 1.06 Troponin I < 0.012 NT-Pro-B Natriuret Pep 102 01/09/18 01/09/18 01/10/18 23:00 23:00 04:53 Creatine Kinase 221 H 190 H CK-MB (CK-2) 1.01 Troponin I < 0.012 NT-Pro-B Natriuret Pep 01/10/18 04:53 Creatine Kinase CK-MB (CK-2) 0.76 Troponin I < 0.012 NT-Pro-B Natriuret Pep Impressions: Ankle X-Ray 01/09/18 13:21 IMPRESSION: Acute minimally displaced medial malleolus and distal fibular metaphysis fractures. There is very mild lateral subluxation of the talus with respect to the tibia best shown on mortise view Foot X-Ray 01/09/18 13:21 IMPRESSION: No acute fracture right foot Hip/Pelvis X-Ray 01/09/18 14:10 IMPRESSION: Nothing acute. No acute fracture or dislocation right hip. Lumbar Spine X-Ray 01/09/18 14:10 IMPRESSION: SPONDYLOSIS WITHOUT FRACTURE. Chest X-Ray 01/09/18 14:15 IMPRESSION: NO ACUTE RADIOGRAPHIC FINDING IN THE CHEST. Status: Imported from PACS Assessment & Plan - Diagnosis (1) Bimalleolar fracture of right ankle Qualifiers: Encounter type: initial encounter Fracture type: closed Qualified Code(s) : S82.841A - Displaced bimalleolar fracture of right lower leg, initial encounter for closed fracture Is this a current diagnosis for this admission?: Yes Plan: 77-year-old white female with chronic anticoagulation for DVT now with a right bimalleolar ankle fracture. Tentative plan will be to add the patient to the surgical schedule for Sunday for an open reduction internal fixation of the right ankle fracture. - Time Time Spent with patient: 15-24 minutes Anticipated discharge: Other Within: Other
[2018-01-11 06:13] LABS: INTERNATIONAL RATION (INR) 1.58; PROTHROMBIN TIME 19.6 SEC (11.4-15.4)
[2018-01-11 06:33] LABS: ALANINE AMINOTRANSFERASE 23 U/L (9-52); ALBUMIN 3.2 g/dL (3.5-5.0); ALKALINE PHOSPHATASE 62 U/L (38-126); ANION GAP 11 (5-19); ASPARTATE AMINO TRANSFERASE 16 U/L (14-36); BILIRUBIN,DIRECT 0.3 mg/dL (0.0-0.4); BILIRUBIN,TOTAL 0.3 mg/dL (0.2-1.3); BLOOD UREA NITROGEN 21 mg/dL (7-20); CALCIUM 8.6 mg/dL (8.4-10.2); CARBON DIOXIDE 27 mmol/L (22-30); CHLORIDE 105 mmol/L (98-107); GLUCOSE 137 mg/dL (75-110); POTASSIUM 4.1 mmol/L (3.6-5.0); SODIUM 142.6 mmol/L (137-145); TOTAL PROTEIN 7.2 g/dL (6.3-8.2)
[2018-01-11] MEDS: LANSOPRAZOLE 30 MG TAB.RAP.DR PO SCH (06:51)
[2018-01-11] MEDS: PREGABALIN 75 MG CAPSULE PO SCH ×2 (06:51→17:10)
[2018-01-11] MEDS: TOLTERODINE TARTRATE 1 MG TABLET PO SCH ×2 (09:46→21:15)
[2018-01-11] MEDS: PRAMIPEXOLE DI-HCL 0.25 MG TABLET PO SCH (09:46)
[2018-01-11] MEDS: HYDROCHLOROTHIAZIDE 25 MG TABLET PO SCH ×2 (09:47→17:11)
[2018-01-11] MEDS: AMLODIPINE BESYLATE 10 MG TABLET PO SCH (09:47)
[2018-01-11] MEDS: VALSARTAN 160 MG TABLET PO SCH (09:47)
[2018-01-11] MEDS: OXYCODONE-ACETAMINOPHEN 5-325 MG TABLET PO PRN (11:18)
[2018-01-11] MEDS: ONDANSETRON 4 MG TAB.RAPDIS PO PRN (17:07)
[2018-01-11] MEDS: METFORMIN HCL 500 MG TABLET PO SCH (17:09)
[2018-01-11] MEDS ORDERED: NYSTATIN TOPICAL POWDER 15 GM TP PRN (18:51)
[2018-01-11] MEDS ORDERED: ACETAMINOPHEN 325 MG TABLET PO PRN (18:54)
--- NOTE | 2018-01-11 21:02 | PDOC PROGRESS REPORT ---
Subjective Progress Note for:: 01/11/18 Subjective:: Patient seen by the bedside scheduled for ORIF on Sunday, on chronic anticoagulation with Coumadin Reason For Visit: FRACTURE OF RIGHT FIBULA Physical Exam Vital Signs: Temp Pulse Resp BP Pulse Ox 98.6 F 80 19 103/60 94 01/11/18 15:33 01/11/18 15:33 01/11/18 15:33 01/11/18 15:33 01/11/18 15:33 Intake & Output 01/10/18 01/11/18 01/12/18 06:59 06:59 06:59 Intake Total 2180 1706 Output Total 1200 1050 1300 Balance -1200 1130 406 Weight 128.4 kg 128.6 kg General appearance: PRESENT: no acute distress Eye exam: PRESENT: PERRLA Respiratory exam: PRESENT: clear to auscultation aliya Cardiovascular exam: PRESENT: +S1, +S2 GI/Abdominal exam: PRESENT: soft Results Laboratory Results: 01/11/18 05:24 01/11/18 05:24 01/11/18 01/11/18 05:24 05:24 WBC 8.8 RBC 3.87 Hgb 11.2 L Hct 34.1 L MCV 88 MCH 28.9 MCHC 32.9 RDW 16.2 H Plt Count 282 Seg Neutrophils % 60.6 Lymphocytes % 23.4 Monocytes % 11.2 Eosinophils % 3.6 Basophils % 1.2 Absolute Neutrophils 5.3 Absolute Lymphocytes 2.1 Absolute Monocytes 1.0 Absolute Eosinophils 0.3 Absolute Basophils 0.1 Sodium 142.6 Potassium 4.1 Chloride 105 Carbon Dioxide 27 Anion Gap 11 BUN 21 H Creatinine 1.12 Est GFR ( Amer) 57 L Est GFR (Non-Af Amer) 47 L Glucose 137 H Calcium 8.6 Total Bilirubin 0.3 AST 16 ALT 23 Alkaline Phosphatase 62 Total Protein 7.2 Albumin 3.2 L 01/09/18 18:15 Sputum Gram Stain - Final 01/09/18 17:50 Perez Catheter Urine Culture - Final Escherichia Coli 01/09/18 01/09/18 01/09/18 15:28 15:28 15:28 Creatine Kinase 179 H CK-MB (CK-2) 1.06 Troponin I < 0.012 NT-Pro-B Natriuret Pep 102 01/09/18 01/09/18 01/10/18 23:00 23:00 04:53 Creatine Kinase 221 H 190 H CK-MB (CK-2) 1.01 Troponin I < 0.012 NT-Pro-B Natriuret Pep 01/10/18 04:53 Creatine Kinase CK-MB (CK-2) 0.76 Troponin I < 0.012 NT-Pro-B Natriuret Pep Impressions: Ankle X-Ray 01/09/18 13:21 IMPRESSION: Acute minimally displaced medial malleolus and distal fibular metaphysis fractures. There is very mild lateral subluxation of the talus with respect to the tibia best shown on mortise view Foot X-Ray 01/09/18 13:21 IMPRESSION: No acute fracture right foot Hip/Pelvis X-Ray 01/09/18 14:10 IMPRESSION: Nothing acute. No acute fracture or dislocation right hip. Lumbar Spine X-Ray 01/09/18 14:10 IMPRESSION: SPONDYLOSIS WITHOUT FRACTURE. Chest X-Ray 01/09/18 14:15 IMPRESSION: NO ACUTE RADIOGRAPHIC FINDING IN THE CHEST. 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: Diabetes mellitus longterm insulin use: with medical terminologist use Diabetes mellitus complication status: with neurologic complications Diabetes mellitus complication detail: with polyneuropathy Qualified Code(s): E11.42 - Type 2 diabetes mellitus with diabetic polyneuropathy; Z79.4 - buttermaker (current) use of insulin; Z79.4 - snf (current) use of insulin; Z79.4 - buttermaker ( current) use of insulin; Z79.4 - snf (current) use of insulin Is this a current diagnosis for this admission?: Yes
[2018-01-11] MEDS: ATORVASTATIN CALCIUM 10 MG TABLET PO SCH (21:15)
[2018-01-12] MEDS: LANSOPRAZOLE 30 MG TAB.RAP.DR PO SCH (05:35)
[2018-01-12] MEDS: PREGABALIN 75 MG CAPSULE PO SCH ×2 (05:36→17:31)
[2018-01-12 06:27] LABS: ABSOLUTE BASOPHILS # (AUTO) 0.1 10^3/uL (0.0-0.2); ABSOLUTE EOSINOPHILS # (AUTO) 0.4 10^3/uL (0.0-0.6); ABSOLUTE LYMPHOCYTES (AUTO) 1.7 10^3/uL (0.5-4.7); ABSOLUTE MONOCYTES (AUTO) 0.9 10^3/uL (0.1-1.4); ABSOLUTE NEUT (AUTO) 5.9 10^3/uL (1.7-8.2); BASOPHILS % (AUTO) 0.9 % (0-2); EOSINOPHILS % (AUTO) 4.1 % (0-6); HEMATOCRIT 33.2 % (36.0-47.0); LYMPHOCYTES % (AUTO) 19.4 % (13-45); MEAN CORPUSCULAR HEMOGLOBIN 29.2 pg (27.0-33.4); MEAN CORPUSCULAR HGB CONC 33.1 g/dL (32.0-36.0); MEAN CORPUSCULAR VOLUME 88 fl (80-97); MONOCYTES % (AUTO) 10.2 % (3-13); PLATELET COUNT 272 10^3/uL (150-450); RED BLOOD COUNT 3.76 10^6/uL (3.72-5.28); RED CELL DISTRIBUTION WIDTH 15.6 % (11.5-14.0); SEGMENTED NEUTROPHILS % (AUTO) 65.4 % (42-78); TOTAL CELLS COUNTED % (AUTO) 100 %
[2018-01-12 06:31] LABS: INTERNATIONAL RATION (INR) 1.29; PROTHROMBIN TIME 16.7 SEC (11.4-15.4)
[2018-01-12 06:50] LABS: ALANINE AMINOTRANSFERASE 18 U/L (9-52); ALBUMIN 2.9 g/dL (3.5-5.0); ALKALINE PHOSPHATASE 64 U/L (38-126); ANION GAP 9 (5-19); ASPARTATE AMINO TRANSFERASE 14 U/L (14-36); BILIRUBIN,DIRECT 0.2 mg/dL (0.0-0.4); BILIRUBIN,TOTAL 0.2 mg/dL (0.2-1.3); BLOOD UREA NITROGEN 18 mg/dL (7-20); CALCIUM 8.5 mg/dL (8.4-10.2); CARBON DIOXIDE 28 mmol/L (22-30); CHLORIDE 105 mmol/L (98-107); GLUCOSE 143 mg/dL (75-110); TOTAL PROTEIN 6.6 g/dL (6.3-8.2)
[2018-01-12] MEDS: PRAMIPEXOLE DI-HCL 0.25 MG TABLET PO SCH (10:06)
[2018-01-12] MEDS: TOLTERODINE TARTRATE 1 MG TABLET PO SCH ×2 (10:06→21:07)
[2018-01-12] MEDS: HYDROCHLOROTHIAZIDE 25 MG TABLET PO SCH ×2 (10:07→17:32)
[2018-01-12] MEDS: AMLODIPINE BESYLATE 10 MG TABLET PO SCH (10:07)
[2018-01-12] MEDS: VALSARTAN 160 MG TABLET PO SCH (10:07)
--- NOTE | 2018-01-12 10:39 | PDOC PROGRESS REPORT ---
Subjective Progress Note for:: 01/12/18 Subjective:: Patient is currently doing well Patient is here for the right-sided ankle fracture and waiting for the surgery Patients on chronic Coumadin due to the chronic DVT on the left side of the leg and currently hold the Coumadin because of the surgeryAnd the Dr. Santizo did not want to any breech Per nursing staff Patient's blood pressure in the lower end and currently hold the blood pressure medications Patient's currently denied any chest pain denied any shortness of the breath Reason For Visit: FRACTURE OF RIGHT FIBULA Physical Exam Vital Signs: Temp Pulse Resp BP Pulse Ox 98.2 F 87 18 93/54 L 87 L 01/12/18 08:00 01/12/18 08:00 01/12/18 08:00 01/12/18 08:00 01/12/18 08:00 Intake & Output 01/11/18 01/12/18 01/13/18 06:59 06:59 06:59 Intake Total 2180 2896 Output Total 1050 2220 Balance 1130 676 Weight 128.6 kg 130.5 kg General appearance: PRESENT: no acute distress, well-developed, well-nourished Head exam: PRESENT: atraumatic, normocephalic Eye exam: PRESENT: conjunctiva pink, EOMI, PERRLA. ABSENT: scleral icterus Ear exam: PRESENT: normal external ear exam Mouth exam: PRESENT: moist, tongue midline Neck exam: PRESENT: full ROM. ABSENT: carotid bruit, JVD, lymphadenopathy, thyromegaly Respiratory exam: PRESENT: clear to auscultation aliya Cardiovascular exam: PRESENT: RRR. ABSENT: diastolic murmur, rubs, systolic murmur Pulses: PRESENT: normal dorsalis pedis pul, +2 pedal pulses bilateral Vascular exam: PRESENT: normal capillary refill GI/Abdominal exam: PRESENT: normal bowel sounds, soft. ABSENT: distended, guarding, mass, organolmegaly, rebound, tenderness Rectal exam: PRESENT: deferred Extremities exam: PRESENT: pedal edema Additional comments: Right-sided the dressing is intact Neurological exam: PRESENT: alert, awake, oriented to person, oriented to place , oriented to time, oriented to situation, CN II-XII grossly intact. ABSENT: motor sensory deficit Psychiatric exam: PRESENT: appropriate affect, normal mood. ABSENT: homicidal ideation, suicidal ideation Skin exam: PRESENT: dry, intact, warm. ABSENT: cyanosis, rash Results Laboratory Results: 01/12/18 05:33 01/12/18 05:33 18 01/12/18 05:33 05:33 WBC 9.0 RBC 3.76 Hgb 11.0 L Hct 33.2 L MCV 88 MCH 29.2 MCHC 33.1 RDW 15.6 H Plt Count 272 Seg Neutrophils % 65.4 Lymphocytes % 19.4 Monocytes % 10.2 Eosinophils % 4.1 Basophils % 0.9 Absolute Neutrophils 5.9 Absolute Lymphocytes 1.7 Absolute Monocytes 0.9 Absolute Eosinophils 0.4 Absolute Basophils 0.1 Sodium 142.0 Potassium 4.0 Chloride 105 Carbon Dioxide 28 Anion Gap 9 BUN 18 Creatinine 1.02 Est GFR ( Amer) > 60 Est GFR (Non-Af Amer) 53 L Glucose 143 H Calcium 8.5 Total Bilirubin 0.2 AST 14 ALT 18 Alkaline Phosphatase 64 Total Protein 6.6 Albumin 2.9 L 01/09/18 18:15 Sputum Gram Stain - Final 01/09/18 17:50 Perez Catheter Urine Culture - Final Escherichia Coli 01/09/18 01/09/18 01/09/18 15:28 15:28 15:28 Creatine Kinase 179 H CK-MB (CK-2) 1.06 Troponin I < 0.012 NT-Pro-B Natriuret Pep 102 01/09/18 01/09/18 01/10/18 23:00 23:00 04:53 Creatine Kinase 221 H 190 H CK-MB (CK-2) 1.01 Troponin I < 0.012 NT-Pro-B Natriuret Pep 01/10/18 04:53 Creatine Kinase CK-MB (CK-2) 0.76 Troponin I < 0.012 NT-Pro-B Natriuret Pep Impressions: Ankle X-Ray 01/09/18 13:21 IMPRESSION: Acute minimally displaced medial malleolus and distal fibular metaphysis fractures. There is very mild lateral subluxation of the talus with respect to the tibia best shown on mortise view Foot X-Ray 01/09/18 13:21 IMPRESSION: No acute fracture right foot Hip/Pelvis X-Ray 01/09/18 14:10 IMPRESSION: Nothing acute. No acute fracture or dislocation right hip. Lumbar Spine X-Ray 01/09/18 14:10 IMPRESSION: SPONDYLOSIS WITHOUT FRACTURE. Chest X-Ray 01/09/18 14:15 IMPRESSION: NO ACUTE RADIOGRAPHIC FINDING IN THE CHEST. Assessment & Plan - Diagnosis (1) Bimalleolar fracture of right ankle Qualifiers: Encounter type: initial encounter Fracture type: closed Qualified Code(s) : S82.841A - Displaced bimalleolar fracture of right lower leg, initial encounter for closed fracture Is this a current diagnosis for this admission?: Yes Plan: Patients plan for the surgery on Sunday (2) Anemia due to acute blood loss Is this a current diagnosis for this admission?: Yes (3) Anticoagulation excessive Is this a current diagnosis for this admission?: Yes Plan: Currently INR is holding no sign of any active bleeding's will be considered the DVT prophylaxis (4) Diabetes mellitus type II, controlled Qualifiers: Diabetes mellitus termite inspector insulin use: without usp use Diabetes mellitus complication status: without complication Qualified Code(s): E11.9 - Type 2 diabetes mellitus without complications Is this a current diagnosis for this admission?: Yes (5) Hypotension Qualifiers: Hypotension type: unspecified hypotension type Qualified Code(s): I95.9 - Hypotension, unspecified Is this a current diagnosis for this admission?: Yes Plan: We will get the all the culture to rule out any infections (6) Obesity Qualifiers: Obesity type: due to excess calories Qualified Code(s): E66.01 - Morbid ( severe) obesity due to excess calories Is this a current diagnosis for this admission?: Yes - Time Time Spent with patient: 15-24 minutes Medications reviewed and adjusted accordingly: Yes Anticipated discharge: Other Within: Other - Inpatient Certification Medical Necessity: Need Close Monitoring Due to Risk of Patient Decompensation, Need For IV Fluids - Plan Summary Plan Summary: Continues to current medications see other MD orders discussed with the nursing staff
[2018-01-12] MEDS ORDERED: CEFTRIAXONE 1 GM/D5W RTU 1 GM/50 ML RTUPB IV SCH (11:00)
[2018-01-12] MEDS: CEFTRIAXONE SODIUM 1,000 MG in DEXTROSE 5%-WATER 50 ML IV SCH (12:15)
[2018-01-12] MEDS: HEPARIN SOD (PORCINE) 5,000 UNIT/ML 1 ML SYRINGE SUBCUT SCH ×2 (15:27→21:06)
--- NOTE | 2018-01-12 16:09 | PDOC PROGRESS REPORT ---
Subjective Progress Note for:: 01/12/18 Subjective:: Patient lying in bed comfortably. Pain currently controlled. Verbalizes no complaints today. Does note some anxiety about her surgical procedure which is set up for Sunday. Reason For Visit: FRACTURE OF RIGHT FIBULA Physical Exam Vital Signs: Temp Pulse Resp BP Pulse Ox 98 F 80 18 102/57 L 95 01/12/18 12:00 01/12/18 12:00 01/12/18 12:00 01/12/18 12:00 01/12/18 12:00 Intake & Output 01/11/18 01/12/18 01/13/18 06:59 06:59 06:59 Intake Total 2180 2896 Output Total 1050 2220 Balance 1130 676 Weight 128.6 kg 130.5 kg Musculoskeletal exam: PRESENT: other - Right ankle: Splint clean/dry/intact. Intact flexion extension of the toes. No pain with passive stretch. Refill less than 2 seconds. Results Laboratory Results: 01/12/18 05:33 01/12/18 05:33 01/12/18 01/12/18 05:33 05:33 WBC 9.0 RBC 3.76 Hgb 11.0 L Hct 33.2 L MCV 88 MCH 29.2 MCHC 33.1 RDW 15.6 H Plt Count 272 Seg Neutrophils % 65.4 Lymphocytes % 19.4 Monocytes % 10.2 Eosinophils % 4.1 Basophils % 0.9 Absolute Neutrophils 5.9 Absolute Lymphocytes 1.7 Absolute Monocytes 0.9 Absolute Eosinophils 0.4 Absolute Basophils 0.1 Sodium 142.0 Potassium 4.0 Chloride 105 Carbon Dioxide 28 Anion Gap 9 BUN 18 Creatinine 1.02 Est GFR ( Amer) > 60 Est GFR (Non-Af Amer) 53 L Glucose 143 H Calcium 8.5 Total Bilirubin 0.2 AST 14 ALT 18 Alkaline Phosphatase 64 Total Protein 6.6 Albumin 2.9 L 01/09/18 18:15 Sputum Gram Stain - Final 01/09/18 01/09/18 01/09/18 15:28 15:28 15:28 Creatine Kinase 179 H CK-MB (CK-2) 1.06 Troponin I < 0.012 NT-Pro-B Natriuret Pep 102 01/09/18 01/09/18 01/10/18 23:00 23:00 04:53 Creatine Kinase 221 H 190 H CK-MB (CK-2) 1.01 Troponin I < 0.012 NT-Pro-B Natriuret Pep 01/10/18 04:53 Creatine Kinase CK-MB (CK-2) 0.76 Troponin I < 0.012 NT-Pro-B Natriuret Pep Impressions: Ankle X-Ray 01/09/18 13:21 IMPRESSION: Acute minimally displaced medial malleolus and distal fibular metaphysis fractures. There is very mild lateral subluxation of the talus with respect to the tibia best shown on mortise view Foot X-Ray 01/09/18 13:21 IMPRESSION: No acute fracture right foot Hip/Pelvis X-Ray 01/09/18 14:10 IMPRESSION: Nothing acute. No acute fracture or dislocation right hip. Lumbar Spine X-Ray 01/09/18 14:10 IMPRESSION: SPONDYLOSIS WITHOUT FRACTURE. Chest X-Ray 01/09/18 14:15 IMPRESSION: NO ACUTE RADIOGRAPHIC FINDING IN THE CHEST. Assessment & Plan - Diagnosis (1) Bimalleolar fracture of right ankle Qualifiers: Encounter type: initial encounter Fracture type: closed Qualified Code(s) : S82.841A - Displaced bimalleolar fracture of right lower leg, initial encounter for closed fracture Is this a current diagnosis for this admission?: Yes Plan: Patient is set up for operative intervention on 05/17/18 which includes open reduction internal fixation right bimalleolar ankle fracture. Currently INR is within acceptable parameters for operative intervention. I will order an ISB to be at bedside to avoid postoperative and preoperative atelectasis. Patient is to be n.p.o. after midnight 01/13-01/14 for operative intervention 01/14/18
[2018-01-12] MEDS: METFORMIN HCL 500 MG TABLET PO SCH (17:31)
[2018-01-12] MEDS: OXYCODONE-ACETAMINOPHEN 5-325 MG TABLET PO PRN (21:07)
[2018-01-12] MEDS: ATORVASTATIN CALCIUM 10 MG TABLET PO SCH (21:07)
[2018-01-13] MEDS: PREGABALIN 75 MG CAPSULE PO SCH ×2 (06:21→17:30)
[2018-01-13] MEDS: HEPARIN SOD (PORCINE) 5,000 UNIT/ML 1 ML SYRINGE SUBCUT SCH ×3 (06:21→21:10)
[2018-01-13] MEDS: LANSOPRAZOLE 30 MG TAB.RAP.DR PO SCH (06:21)
[2018-01-13 06:32] LABS: INTERNATIONAL RATION (INR) 1.06; PROTHROMBIN TIME 14.3 SEC (11.4-15.4)
[2018-01-13 06:34] LABS: ABSOLUTE BASOPHILS # (AUTO) 0.1 10^3/uL (0.0-0.2); ABSOLUTE EOSINOPHILS # (AUTO) 0.4 10^3/uL (0.0-0.6); ABSOLUTE LYMPHOCYTES (AUTO) 1.5 10^3/uL (0.5-4.7); BASOPHILS % (AUTO) 0.7 % (0-2); EOSINOPHILS % (AUTO) 4.1 % (0-6); HEMATOCRIT 32.8 % (36.0-47.0); HEMOGLOBIN 11.1 g/dL (12.0-15.5); LYMPHOCYTES % (AUTO) 16.7 % (13-45); MEAN CORPUSCULAR VOLUME 88 fl (80-97); MONOCYTES % (AUTO) 10.8 % (3-13); PLATELET COUNT 255 10^3/uL (150-450); RED BLOOD COUNT 3.71 10^6/uL (3.72-5.28); SEGMENTED NEUTROPHILS % (AUTO) 67.7 % (42-78); TOTAL CELLS COUNTED % (AUTO) 100 %; WHITE BLOOD COUNT 8.9 10^3/uL (4.0-10.5)
[2018-01-13 07:37] LABS: ANION GAP 11 (5-19); BLOOD UREA NITROGEN 18 mg/dL (7-20); CALCIUM 8.8 mg/dL (8.4-10.2); CARBON DIOXIDE 27 mmol/L (22-30); CHLORIDE 105 mmol/L (98-107); GLUCOSE 153 mg/dL (75-110); POTASSIUM 4.5 mmol/L (3.6-5.0); SODIUM 142.9 mmol/L (137-145)
[2018-01-13] MEDS: TOLTERODINE TARTRATE 1 MG TABLET PO SCH ×2 (09:20→21:09)
[2018-01-13] MEDS: AMLODIPINE BESYLATE 10 MG TABLET PO SCH (09:20)
[2018-01-13] MEDS: OXYCODONE-ACETAMINOPHEN 5-325 MG TABLET PO PRN ×2 (09:20→12:30)
[2018-01-13] MEDS: PRAMIPEXOLE DI-HCL 0.25 MG TABLET PO SCH (09:21)
--- NOTE | 2018-01-13 10:34 | PDOC PROGRESS REPORT ---
Subjective Progress Note for:: 01/13/18 Subjective:: Patient is currently doing fair Patient's complaining some mild cough No chest pain no shortness of the breath Patients plan for scheduled surgery tomorrow Reason For Visit: FRACTURE OF RIGHT FIBULA Physical Exam Vital Signs: Temp Pulse Resp BP Pulse Ox 98.7 F 86 18 109/50 L 90 L 01/13/18 08:00 01/13/18 08:00 01/13/18 08:00 01/13/18 08:00 01/13/18 08:00 Intake & Output 01/12/18 01/13/18 01/14/18 06:59 06:59 06:59 Intake Total 2896 2880 Output Total 2220 1800 Balance 676 1080 Weight 130.5 kg 133.2 kg General appearance: PRESENT: no acute distress, well-developed, well-nourished Head exam: PRESENT: atraumatic, normocephalic Eye exam: PRESENT: conjunctiva pink, EOMI, PERRLA. ABSENT: scleral icterus Ear exam: PRESENT: normal external ear exam Mouth exam: PRESENT: moist, tongue midline Neck exam: PRESENT: full ROM. ABSENT: carotid bruit, JVD, lymphadenopathy, thyromegaly Respiratory exam: PRESENT: clear to auscultation aliya Cardiovascular exam: PRESENT: RRR. ABSENT: diastolic murmur, rubs, systolic murmur Pulses: PRESENT: normal dorsalis pedis pul, +2 pedal pulses bilateral Vascular exam: PRESENT: normal capillary refill GI/Abdominal exam: PRESENT: normal bowel sounds, soft. ABSENT: distended, guarding, mass, organolmegaly, rebound, tenderness Rectal exam: PRESENT: deferred Additional comments: Right-sided dressing is intact Neurological exam: PRESENT: alert, awake, oriented to person, oriented to place , oriented to time, oriented to situation, CN II-XII grossly intact. ABSENT: motor sensory deficit Psychiatric exam: PRESENT: appropriate affect, normal mood. ABSENT: homicidal ideation, suicidal ideation Skin exam: PRESENT: dry, intact, warm. ABSENT: cyanosis, rash Results Laboratory Results: 01/13/18 05:49 01/13/18 05:49 01/13/18 01/13/18 05:49 05:49 WBC 8.9 RBC 3.71 L Hgb 11.1 L Hct 32.8 L MCV 88 MCH 30.0 MCHC 34.0 RDW 16.0 H Plt Count 255 Seg Neutrophils % 67.7 Lymphocytes % 16.7 Monocytes % 10.8 Eosinophils % 4.1 Basophils % 0.7 Absolute Neutrophils 6.0 Absolute Lymphocytes 1.5 Absolute Monocytes 1.0 Absolute Eosinophils 0.4 Absolute Basophils 0.1 Sodium 142.9 Potassium 4.5 Chloride 105 Carbon Dioxide 27 Anion Gap 11 BUN 18 Creatinine 1.02 Est GFR ( Amer) > 60 Est GFR (Non-Af Amer) 53 L Glucose 153 H Calcium 8.8 01/09/18 18:15 Sputum Gram Stain - Final 01/09/18 01/09/18 01/09/18 15:28 15:28 15:28 Creatine Kinase 179 H CK-MB (CK-2) 1.06 Troponin I < 0.012 NT-Pro-B Natriuret Pep 102 01/09/18 01/09/18 01/10/18 23:00 23:00 04:53 Creatine Kinase 221 H 190 H CK-MB (CK-2) 1.01 Troponin I < 0.012 NT-Pro-B Natriuret Pep 01/10/18 04:53 Creatine Kinase CK-MB (CK-2) 0.76 Troponin I < 0.012 NT-Pro-B Natriuret Pep Impressions: Ankle X-Ray 01/09/18 13:21 IMPRESSION: Acute minimally displaced medial malleolus and distal fibular metaphysis fractures. There is very mild lateral subluxation of the talus with respect to the tibia best shown on mortise view Foot X-Ray 01/09/18 13:21 IMPRESSION: No acute fracture right foot Hip/Pelvis X-Ray 01/09/18 14:10 IMPRESSION: Nothing acute. No acute fracture or dislocation right hip. Lumbar Spine X-Ray 01/09/18 14:10 IMPRESSION: SPONDYLOSIS WITHOUT FRACTURE. Assessment & Plan - Diagnosis (1) Bimalleolar fracture of right ankle Qualifiers: Encounter type: initial encounter Fracture type: closed Qualified Code(s) : S82.841A - Displaced bimalleolar fracture of right lower leg, initial encounter for closed fracture Is this a current diagnosis for this admission?: Yes Plan: Patients plan for the surgery on Sunday (2) Anemia due to acute blood loss Is this a current diagnosis for this admission?: Yes Plan: Currently stable blood work (3) Anticoagulation excessive Is this a current diagnosis for this admission?: Yes Plan: Currently INR is holding no sign of any active bleeding's will be considered the DVT prophylaxis (4) Diabetes mellitus type II, controlled Qualifiers: Diabetes mellitus intermediate insulin use: without intermediate use Diabetes mellitus complication status: without complication Qualified Code(s): E11.9 - Type 2 diabetes mellitus without complications Is this a current diagnosis for this admission?: Yes (5) Hypotension Qualifiers: Hypotension type: unspecified hypotension type Qualified Code(s): I95.9 - Hypotension, unspecified Is this a current diagnosis for this admission?: Yes Plan: We will get the all the culture to rule out any infections (6) Obesity Qualifiers: Obesity type: due to excess calories Qualified Code(s): E66.01 - Morbid ( severe) obesity due to excess calories Is this a current diagnosis for this admission?: Yes (7) Cough Is this a current diagnosis for this admission?: Yes Plan: We will get the chest x-ray start the nebulizer treatment as needed and incentive spirometry (8) Escherichia coli urinary tract infection Is this a current diagnosis for this admission?: Yes Plan: Continues IV Rocephin - Time Time Spent with patient: 15-24 minutes Medications reviewed and adjusted accordingly: Yes Anticipated discharge: Other Within: Other - Inpatient Certification Medical Necessity: Need Close Monitoring Due to Risk of Patient Decompensation, Need For IV Fluids, Need for IV Antibiotics Post Hospital Care: D/C [employer] Documentation - Plan Summary Plan Summary: Continues IV antibiotics continues IV fluid will get the chest x-ray At the 12-lead EKG before the surgery
--- NOTE | 2018-01-13 10:54 | RADIOLOGY REPORT (SQ) ---
EXAM DESCRIPTION: CHEST SINGLE VIEW COMPLETED DATE/TIME: 01/13/2018 10:25 am REASON FOR STUDY: sepsis COMPARISON: 01/09/2018. EXAM PARAMETERS: NUMBER OF VIEWS: One view. TECHNIQUE: Single frontal radiographic view of the chest acquired. RADIATION DOSE: NA LIMITATIONS: None. FINDINGS: LUNGS AND PLEURA: No opacities, masses or pneumothorax. No pleural effusion. MEDIASTINUM AND HILAR STRUCTURES: No masses. Contour normal. HEART AND VASCULAR STRUCTURES: Heart upper limits of normal in size. Normal vasculature. BONES: No acute findings. HARDWARE: None in the chest. OTHER: No other significant finding. IMPRESSION: NO ACUTE RADIOGRAPHIC FINDING IN THE CHEST. TECHNICAL DOCUMENTATION: JOB ID: [id number]- All Rights Reserved Reading location - IP/workstation name: [email or web address]
[2018-01-13] MEDS: CEFTRIAXONE SODIUM 1,000 MG in DEXTROSE 5%-WATER 50 ML IV SCH (11:56)
[2018-01-13] MEDS ORDERED: POLYETHYLENE GLYCOL 3350 POWDER 17 GM/1 PACKET PO ONE (12:30)
[2018-01-13] MEDS ORDERED: DEXTROSE 50%-WATER 25 GM/50 ML DISP.SYRIN IV PRN ×2 (13:07)
[2018-01-13] MEDS ORDERED: DEXTROSE 40% GEL 15 GM TUBE PO PRN ×2 (13:07)
[2018-01-13] MEDS ORDERED: GLUCAGON,HUMAN RECOMB 1 MG INJ SUBCUT PRN (13:07)
--- NOTE | 2018-01-13 16:16 | EKG REPORT ---
SEVERITY:- BORDERLINE ECG - SINUS RHYTHM LOW VOLTAGE THROUGHOUT : Confirmed by: Emerald Cabrera 13-Jan-2018 16:14:49
[2018-01-13] MEDS ORDERED: OXYCODONE HCL IR 5 MG TABLET PO ONE (16:30)
[2018-01-13] MEDS ORDERED: OXYCODONE-ACETAMINOPHEN 5-325 MG TABLET PO ONE (16:30)
[2018-01-13] MEDS ORDERED: KETOROLAC TROMETHAMINE 10 MG TABLET PO PRN (17:05)
[2018-01-13] MEDS: DOCUSATE SODIUM 100 MG CAPSULE PO SCH (17:27)
[2018-01-13] MEDS: METFORMIN HCL 500 MG TABLET PO SCH (17:31)
[2018-01-13] MEDS: ONDANSETRON 4 MG TAB.RAPDIS PO PRN (18:59)
[2018-01-13] MEDS: ATORVASTATIN CALCIUM 10 MG TABLET PO SCH (21:09)
[2018-01-13] MEDS: NORMAL SALINE 1000 ML 1,000 ML IV PRN (21:09)
[2018-01-14] MEDS: ONDANSETRON 4 MG TAB.RAPDIS PO PRN (04:27)
[2018-01-14] MEDS: LANSOPRAZOLE 30 MG TAB.RAP.DR PO SCH (06:08)
[2018-01-14] MEDS: PREGABALIN 75 MG CAPSULE PO SCH ×2 (06:08→17:41)
[2018-01-14 06:34] LABS: ABSOLUTE EOSINOPHILS # (AUTO) 0.2 10^3/uL (0.0-0.6); ABSOLUTE MONOCYTES (AUTO) 0.7 10^3/uL (0.1-1.4); ABSOLUTE NEUT (AUTO) 8.3 10^3/uL (1.7-8.2); BASOPHILS % (AUTO) 0.5 % (0-2); EOSINOPHILS % (AUTO) 2.3 % (0-6); HEMATOCRIT 35.7 % (36.0-47.0); HEMOGLOBIN 11.8 g/dL (12.0-15.5); LYMPHOCYTES % (AUTO) 9.5 % (13-45); MEAN CORPUSCULAR HEMOGLOBIN 29.3 pg (27.0-33.4); MEAN CORPUSCULAR VOLUME 89 fl (80-97); PLATELET COUNT 310 10^3/uL (150-450); RED BLOOD COUNT 4.02 10^6/uL (3.72-5.28); RED CELL DISTRIBUTION WIDTH 16.2 % (11.5-14.0); SEGMENTED NEUTROPHILS % (AUTO) 80.7 % (42-78); TOTAL CELLS COUNTED % (AUTO) 100 %; WHITE BLOOD COUNT 10.3 10^3/uL (4.0-10.5)
[2018-01-14 06:59] LABS: ANION GAP 14 (5-19); BLOOD UREA NITROGEN 21 mg/dL (7-20); CALCIUM 8.8 mg/dL (8.4-10.2); CARBON DIOXIDE 22 mmol/L (22-30); CHLORIDE 107 mmol/L (98-107); GLUCOSE 181 mg/dL (75-110); POTASSIUM 4.4 mmol/L (3.6-5.0); SODIUM 143.1 mmol/L (137-145)
--- NOTE | 2018-01-14 07:28 | RADIOLOGY REPORT (SQ) ---
EXAM DESCRIPTION: CT ABDOMEN AND PELVIS WITHOUT CONTRAST CLINICAL HISTORY: constipation, vomiting diffuse abdominal pain. COMPARISON: None Available. TECHNIQUE: CT of the abdomen and pelvis without IV contrast. Evaluation of the solid organs and vasculature is suboptimal due to lack of IV contrast. DLP: 1627.51 mGy-cm FINDINGS: Lung Bases: Minimal bibasilar atelectasis. Bones: No destructive bone lesions identified. Degenerative change of the spine. Abdomen: Liver: The liver has normal size and density. Gallbladder: Cholelithiasis. Spleen, Pancreas, and Adrenal Glands: The spleen, pancreas, and adrenal glands are unremarkable. Kidneys: The kidneys have normal size and contour without evidence of hydronephrosis. No obstructing ureteral calculi. Vasculature: Aortoiliac atherosclerosis. Stomach: Small hiatal hernia. Other: No free intraperitoneal air. Small amount of free pelvic fluid. Pelvis: Bladder: Perez catheter in the urinary bladder. Bowel: Dilated loops of small bowel with the distal small bowel decompressed. Transition point may be in the midabdomen on image #64, series 3. Scattered diverticula of the colon. Appendix: Normal appendix. Pelvis: Prior hysterectomy. IMPRESSION: 1. Findings compatible with small bowel obstruction with possible transition point in the mid abdomen. 2. Cholelithiasis. 2. Diverticulosis without evidence of acute diverticulitis. This exam was performed according to our departmental dose-optimization program, which includes automated exposure control, adjustment of the mA and/or kV according to patient size and/or use of iterative reconstruction technique.
--- NOTE | 2018-01-14 08:57 | PDOC PROGRESS REPORT ---
Subjective Progress Note for:: 01/14/18 Subjective:: Patient is complaining of start some nausea vomiting this morning and patient had a CT abdomen pelvis was done with so some small bowel obstructions and no sign of any GI bleed patient have a still have a significant constipation issues Patient supposed to have ortho surgery but because of this new onset of small bowel obstructions who the surgery and discussed with the patient and the daughter and the bedside Reason For Visit: FRACTURE OF RIGHT FIBULA Physical Exam Vital Signs: Temp Pulse Resp BP Pulse Ox 98.2 F 79 18 103/64 96 01/14/18 07:47 01/14/18 07:47 01/14/18 07:47 01/14/18 07:47 01/14/18 07:47 Intake & Output 01/13/18 01/14/18 01/15/18 06:59 06:59 06:59 Intake Total 2880 3072 Output Total 1800 2600 Balance 1080 472 Weight 133.2 kg 132.5 kg General appearance: PRESENT: no acute distress, well-developed, well-nourished Head exam: PRESENT: atraumatic, normocephalic Eye exam: PRESENT: conjunctiva pink, EOMI, PERRLA. ABSENT: scleral icterus Ear exam: PRESENT: normal external ear exam Mouth exam: PRESENT: moist, tongue midline Neck exam: PRESENT: full ROM. ABSENT: carotid bruit, JVD, lymphadenopathy, thyromegaly Respiratory exam: PRESENT: clear to auscultation aliya Cardiovascular exam: PRESENT: RRR. ABSENT: diastolic murmur, rubs, systolic murmur Pulses: PRESENT: normal dorsalis pedis pul, +2 pedal pulses bilateral Vascular exam: PRESENT: normal capillary refill GI/Abdominal exam: PRESENT: distended, hypoactive bowel sounds, soft. ABSENT: guarding, mass, organolmegaly, rebound, tenderness Rectal exam: PRESENT: deferred Neurological exam: PRESENT: alert, awake, oriented to person, oriented to place , oriented to time, oriented to situation, CN II-XII grossly intact. ABSENT: motor sensory deficit Psychiatric exam: PRESENT: appropriate affect, normal mood. ABSENT: homicidal ideation, suicidal ideation Skin exam: PRESENT: dry, intact, warm. ABSENT: cyanosis, rash Results Laboratory Results: 01/14/18 05:44 01/14/18 05:44 01/14/18 01/14/18 05:44 05:44 WBC 10.3 RBC 4.02 Hgb 11.8 L Hct 35.7 L MCV 89 MCH 29.3 MCHC 33.0 RDW 16.2 H Plt Count 310 Seg Neutrophils % 80.7 H Lymphocytes % 9.5 L Monocytes % 7.0 Eosinophils % 2.3 Basophils % 0.5 Absolute Neutrophils 8.3 H Absolute Lymphocytes 1.0 Absolute Monocytes 0.7 Absolute Eosinophils 0.2 Absolute Basophils 0.0 Sodium 143.1 Potassium 4.4 Chloride 107 Carbon Dioxide 22 Anion Gap 14 BUN 21 H Creatinine 1.04 Est GFR ( Amer) > 60 Est GFR (Non-Af Amer) 52 L Glucose 181 H Calcium 8.8 01/09/18 18:15 Sputum Gram Stain - Final 01/09/18 01/09/18 01/09/18 15:28 15:28 15:28 Creatine Kinase 179 H CK-MB (CK-2) 1.06 Troponin I < 0.012 NT-Pro-B Natriuret Pep 102 01/09/18 01/09/18 01/10/18 23:00 23:00 04:53 Creatine Kinase 221 H 190 H CK-MB (CK-2) 1.01 Troponin I < 0.012 NT-Pro-B Natriuret Pep 01/10/18 04:53 Creatine Kinase CK-MB (CK-2) 0.76 Troponin I < 0.012 NT-Pro-B Natriuret Pep Impressions: Ankle X-Ray 01/09/18 13:21 IMPRESSION: Acute minimally displaced medial malleolus and distal fibular metaphysis fractures. There is very mild lateral subluxation of the talus with respect to the tibia best shown on mortise view Foot X-Ray 01/09/18 13:21 IMPRESSION: No acute fracture right foot Hip/Pelvis X-Ray 01/09/18 14:10 IMPRESSION: Nothing acute. No acute fracture or dislocation right hip. Lumbar Spine X-Ray 01/09/18 14:10 IMPRESSION: SPONDYLOSIS WITHOUT FRACTURE. Chest X-Ray 01/13/18 00:00 IMPRESSION: NO ACUTE RADIOGRAPHIC FINDING IN THE CHEST. Abdomen/Pelvis CT 01/14/18 00:00 IMPRESSION: 1. Findings compatible with small bowel obstruction with possible transition point in the mid abdomen. 2. Cholelithiasis. 2. Diverticulosis without evidence of acute diverticulitis. This exam was performed according to our departmental dose-optimization program, which includes automated exposure control, adjustment of the mA and/or kV according to patient size and/or use of iterative reconstruction technique. Assessment & Plan - Diagnosis (1) Bimalleolar fracture of right ankle Qualifiers: Encounter type: initial encounter Fracture type: closed Qualified Code(s) : S82.841A - Displaced bimalleolar fracture of right lower leg, initial encounter for closed fracture Is this a current diagnosis for this admission?: Yes Plan: Currently hold the surgery (2) Anemia due to acute blood loss Is this a current diagnosis for this admission?: Yes (3) Anticoagulation excessive Is this a current diagnosis for this admission?: Yes (4) Diabetes mellitus type II, controlled Qualifiers: Diabetes mellitus care home insulin use: without care home use Diabetes mellitus complication status: without complication Qualified Code(s): E11.9 - Type 2 diabetes mellitus without complications Is this a current diagnosis for this admission?: Yes (5) Hypotension Qualifiers: Hypotension type: unspecified hypotension type Qualified Code(s): I95.9 - Hypotension, unspecified Is this a current diagnosis for this admission?: Yes (6) Obesity Qualifiers: Obesity type: due to excess calories Qualified Code(s): E66.01 - Morbid ( severe) obesity due to excess calories Is this a current diagnosis for this admission?: Yes (7) Cough Is this a current diagnosis for this admission?: Yes (8) Escherichia coli urinary tract infection Is this a current diagnosis for this admission?: Yes Plan: Continues IV Rocephin (9) Small bowel obstruction Is this a current diagnosis for this admission?: Yes Plan: keep her n.p.o. NG tube Discussed with the patient and the daughter on the bedside Page the Dr. Mcneil and left a message Discussed with the Dr. 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
[2018-01-14] MEDS: TOLTERODINE TARTRATE 1 MG TABLET PO SCH ×2 (09:31→21:18)
[2018-01-14] MEDS: POLYETHYLENE GLYCOL 3350 POWDER 17 GM/1 PACKET PO SCH (09:31)
[2018-01-14] MEDS: PRAMIPEXOLE DI-HCL 0.25 MG TABLET PO SCH (09:31)
[2018-01-14] MEDS: DOCUSATE SODIUM 100 MG CAPSULE PO SCH ×2 (09:31→17:41)
--- NOTE | 2018-01-14 11:11 | PDOC CONSULTATION ---
Consultation Consult Date: 01/14/18 Consult reason:: Small bowel obstruction History of Present Illness Admission Date/PCP: 01/09/18 14:35 ZORA RUIZ MD History of Present Illness: SAJAN HILL is a 77 year old female Patient is 77-year-old female, diabetes, morbid obesity, history of constipation, chronic, hospitalized for 5 days following fall, bimalleolar right ankle fracture. Patient was set up for ORIF today of the right ankle fracture, however early this morning developed projectile vomiting. She had a CT scan of the abdomen and pelvis without oral and without IV contrast which showed findings consistent with a possible small bowel obstruction. Surgery was consulted. According to the patient's daughter who is at bedside, who is familiar with the patient, and her past medical history, states that symptoms today are identical to symptoms she had a year ago when she was hospitalized following a femur fracture, developed nausea vomiting aspiration intubation hospitalization for 3 weeks. Patient not complaining of any pain now. Having some dizziness. She is awake and reasonably alert. No bowel movement today. Past Medical History Cardiac Medical History: Reports: Hyperlipidema - meds x 3+ years , Hypertension - meds x 3+ years Denies: Atrial Fibrillation, Congestive Heart Failure, Coronary Artery Disease, Myocardial Infarction, Peripheral Vascular Disease, Heart Murmur Neurological Medical History: Denies: Seizures Endocrine Medical History: Reports: Hypothyroidism Denies: Hyperthyroidism GI Medical History: Reports: Gastroesophageal Reflux Disease - Prilosec PRN Denies: Crohn's Disease, Hiatal Hernia Musculoskeltal Medical History: Reports: Arthritis Denies: Fibromyalgia Psychiatric Medical History: Denies: Dementia Past Surgical History Past Surgical History: Reports: Hysterectomy - KATIE 1969's, Orthopedic Surgery - tkr left, Tonsillectomy Denies: Amputation, Appendectomy, Section, Cholecystectomy, Colostomy, Coronary Artery Bypass Graft, Gastric Bypass Surgery, Herniorrhaphy, Mastectomy, Pacemaker, Tubal Ligation Social History Lives with: Family Smoking Status: Never Smoker Frequency of Alcohol Use: None Hx Recreational Drug Use: No Drugs: None Hx Prescription Drug Abuse: No - Advance Directive Resuscitation Status: Full Code Family History Family History: Reviewed & Not Pertinent, DM Parental Family History Reviewed: Yes Children Family History Reviewed: Yes Sibling(s) Family History Reviewed.: Yes Medication/Allergy Home Medications: Amlodipine Besylate [Norvasc 10 mg Tablet] 10 mg PO DAILY 01/09/18 Hydrochlorothiazide [Hydrodiuril 25 mg Tablet] 25 mg PO DAILY 01/09/18 Metformin HCl [Glucophage] 1,000 mg PO DAILY 01/09/18 Omeprazole 40 mg PO DAILY 01/09/18 Pramipexole Di-HCl [Pramipexole Dihydrochloride] 0.125 mg PO DAILY 01/09/18 Pravastatin Sodium [Pravachol] 40 mg PO DAILY 01/09/18 Pregabalin [Lyrica 75 mg Capsule] 75 mg PO Q12 01/09/18 Solifenacin Succinate [Vesicare] 10 mg PO DAILY 01/09/18 Valsartan/Hydrochlorothiazide [Valsartan-Hctz 320-25 mg Tab] 1 tab PO DAILY Warfarin Sodium [Coumadin 4 mg Tablet] 4 mg PO DAILY 01/09/18 Allergies/Adverse Reactions: hydromorphone [From Dilaudid] Adverse Reaction (Mild, Verified 07/24/16 19:47) Generalized Itching kiwi Allergy (Severe, Uncoded 07/17/16 15:42) swelling of airway/lips raw apples Allergy (Severe, Uncoded 07/17/16 15:42) swelling of airway/lips raw carrots Allergy (Severe, Uncoded 07/17/16 15:42) swelling of airway/lips raw celery Allergy (Severe, Uncoded 07/17/16 15:42) swelling of airway/lips raw grapes Allergy (Severe, Uncoded 07/17/16 15:42) swelling of airway/lips raw nuts Allergy (Severe, Uncoded 07/17/16 15:42) swelling of airway/lips raw pears Allergy (Severe, Uncoded 07/17/16 15:42) swelling of airway/lips Review of Systems Eyes: ABSENT: visual disturbances Ears: ABSENT: hearing changes Cardiovascular: ABSENT: chest pain, dyspnea on exertion, edema, orthropnea, palpitations Musculoskeletal: PRESENT: as per HPI Physical Exam Vital Signs: Temp Pulse Resp BP Pulse Ox 98.2 F 79 18 103/64 96 01/14/18 07:47 01/14/18 07:47 01/14/18 07:47 01/14/18 07:47 01/14/18 07:47 Intake & Output 01/13/18 01/14/18 01/15/18 06:59 06:59 06:59 Intake Total 2880 3072 Output Total 1800 2600 Balance 1080 472 Weight 133.2 kg 132.5 kg General appearance: PRESENT: mild distress Head exam: PRESENT: normocephalic Eye exam: PRESENT: EOMI Neck exam: PRESENT: full ROM Respiratory exam: PRESENT: rhonchi Cardiovascular exam: PRESENT: RRR Pulses: PRESENT: normal carotid pulses GI/Abdominal exam: PRESENT: other - Abdomen distended no peritoneal signs no rigidity, minimal tenderness minimal guarding; no obvious hernia Musculoskeletal exam: PRESENT: other - Patient at bedrest Psychiatric exam: PRESENT: anxious, appropriate affect Results Laboratory Results: 01/14/18 05:44 01/14/18 05:44 01/14/18 01/14/18 05:44 05:44 WBC 10.3 RBC 4.02 Hgb 11.8 L Hct 35.7 L MCV 89 MCH 29.3 MCHC 33.0 RDW 16.2 H Plt Count 310 Seg Neutrophils % 80.7 H Lymphocytes % 9.5 L Monocytes % 7.0 Eosinophils % 2.3 Basophils % 0.5 Absolute Neutrophils 8.3 H Absolute Lymphocytes 1.0 Absolute Monocytes 0.7 Absolute Eosinophils 0.2 Absolute Basophils 0.0 Sodium 143.1 Potassium 4.4 Chloride 107 Carbon Dioxide 22 Anion Gap 14 BUN 21 H Creatinine 1.04 Est GFR ( Amer) > 60 Est GFR (Non-Af Amer) 52 L Glucose 181 H Calcium 8.8 01/09/18 18:15 Sputum Gram Stain - Final 01/09/18 01/09/18 01/09/18 15:28 15:28 15:28 Creatine Kinase 179 H CK-MB (CK-2) 1.06 Troponin I < 0.012 NT-Pro-B Natriuret Pep 102 01/09/18 01/09/18 01/10/18 23:00 23:00 04:53 Creatine Kinase 221 H 190 H CK-MB (CK-2) 1.01 Troponin I < 0.012 NT-Pro-B Natriuret Pep 01/10/18 04:53 Creatine Kinase CK-MB (CK-2) 0.76 Troponin I < 0.012 NT-Pro-B Natriuret Pep Impressions: Ankle X-Ray 05/16/18 13:21 IMPRESSION: Acute minimally displaced medial malleolus and distal fibular metaphysis fractures. There is very mild lateral subluxation of the talus with respect to the tibia best shown on mortise view Foot X-Ray 01/09/18 13:21 IMPRESSION: No acute fracture right foot Hip/Pelvis X-Ray 01/09/18 14:10 IMPRESSION: Nothing acute. No acute fracture or dislocation right hip. Lumbar Spine X-Ray 01/09/18 14:10 IMPRESSION: SPONDYLOSIS WITHOUT FRACTURE. Chest X-Ray 01/13/18 00:00 IMPRESSION: NO ACUTE RADIOGRAPHIC FINDING IN THE CHEST. Abdomen/Pelvis CT 01/14/18 00:00 IMPRESSION: 1. Findings compatible with small bowel obstruction with possible transition point in the mid abdomen. 2. Cholelithiasis. 2. Diverticulosis without evidence of acute diverticulitis. This exam was performed according to our departmental dose-optimization program, which includes automated exposure control, adjustment of the mA and/or kV according to patient size and/or use of iterative reconstruction technique. 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 I think she would benefit from a catharsis, however risk of aspiration must be kept in mind. Recommendations: 1. I reviewed imaging studies with the Dr. Mccann, radiologist. 2. I suggested we start from below, give patient enema, try to clear right colon of stool. 3. If patient does not improve clinically, may require a contrast study, possible Gastrografin , to rule out mechanical obstruction, and also surface a cathartic. 4. We will hold on nasogastric tube placement for the moment
[2018-01-14] MEDS: CEFTRIAXONE SODIUM 1,000 MG in DEXTROSE 5%-WATER 50 ML IV SCH (11:37)
[2018-01-14] MEDS: OXYCODONE-ACETAMINOPHEN 5-325 MG TABLET PO PRN ×2 (12:30→21:18)
[2018-01-14] MEDS: AMLODIPINE BESYLATE 10 MG TABLET PO SCH (12:31)
--- NOTE | 2018-01-14 16:47 | XCELERA REPORT ---
[address] [address] Lower Extremity Venous Evaluation Name: SAJAN HILL Age: 77 yrs Gender: Female : 1940 Patient Status: Inpatient Patient Location: [address] [place], [place] [address] Study Date: 01/13/2018 05:19 PM Procedure: The veins were evaluated for patency, spontaneous and phasic flow from the Common Femoral down to the infrageniculate vessles, on the right. Reason For Study: RLE pain Ordering Physician: BON MCCURDY Performed By: Ruddy Stewart Right Sided Venous Evaluation Normal vessel filling wall to wall, compression and augmentation as well as Colour flow down to the infrageniculate veins. Left Sided Venous Evaluation Attempt at scanning left CFV was abandoned due to patient discomfort. Interpretation Summary Normal compression, patency, spontaneous and phasic flow of the right lower extremity veins. No DVT in the right lower extremity veins. : BON MCCURDY > Joey Rosales
[2018-01-14] MEDS: METFORMIN HCL 500 MG TABLET PO SCH (17:41)
--- NOTE | 2018-01-14 19:36 | PDOC PROGRESS REPORT ---
Subjective Progress Note for:: 01/14/18 Subjective:: Patient surgery for right ankle cancelled because of abdominal symptoms CAT scan suggests small bowel obstruction consult obtained from surgery Reason For Visit: FRACTURE OF RIGHT FIBULA Physical Exam Vital Signs: Temp Pulse Resp BP Pulse Ox 98.5 F 91 18 102/56 L 92 01/14/18 16:03 01/14/18 16:03 01/14/18 16:03 01/14/18 16:03 01/14/18 16:03 Intake & Output 01/13/18 01/14/18 01/15/18 06:59 06:59 06:59 Intake Total 2880 3072 980 Output Total 1800 2600 750 Balance 1080 472 230 Weight 133.2 kg 132.5 kg General appearance: PRESENT: no acute distress Eye exam: PRESENT: PERRLA Respiratory exam: PRESENT: clear to auscultation aliya Cardiovascular exam: PRESENT: +S1, +S2 GI/Abdominal exam: PRESENT: soft Neurological exam: PRESENT: alert Results Laboratory Results: 01/14/18 05:44 01/14/18 05:44 01/14/18 01/14/18 05:44 05:44 WBC 10.3 RBC 4.02 Hgb 11.8 L Hct 35.7 L MCV 89 MCH 29.3 MCHC 33.0 RDW 16.2 H Plt Count 310 Seg Neutrophils % 80.7 H Lymphocytes % 9.5 L Monocytes % 7.0 Eosinophils % 2.3 Basophils % 0.5 Absolute Neutrophils 8.3 H Absolute Lymphocytes 1.0 Absolute Monocytes 0.7 Absolute Eosinophils 0.2 Absolute Basophils 0.0 Sodium 143.1 Potassium 4.4 Chloride 107 Carbon Dioxide 22 Anion Gap 14 BUN 21 H Creatinine 1.04 Est GFR ( Amer) > 60 Est GFR (Non-Af Amer) 52 L Glucose 181 H Calcium 8.8 01/09/18 18:20 Blood Blood Culture - Final NO GROWTH IN 5 DAYS 01/09/18 17:13 Blood Blood Culture - Final NO GROWTH IN 5 DAYS 01/09/18 18:15 Sputum Gram Stain - Final 01/09/18 18:15 Sputum Sputum Culture - Final NORMAL DICKSON 01/09/18 01/09/18 01/09/18 15:28 15:28 15:28 Creatine Kinase 179 H CK-MB (CK-2) 1.06 Troponin I < 0.012 NT-Pro-B Natriuret Pep 102 01/09/18 01/09/18 01/10/18 23:00 23:00 04:53 Creatine Kinase 221 H 190 H CK-MB (CK-2) 1.01 Troponin I < 0.012 NT-Pro-B Natriuret Pep 01/10/18 04:53 Creatine Kinase CK-MB (CK-2) 0.76 Troponin I < 0.012 NT-Pro-B Natriuret Pep Impressions: Ankle X-Ray 01/09/18 13:21 IMPRESSION: Acute minimally displaced medial malleolus and distal fibular metaphysis fractures. There is very mild lateral subluxation of the talus with respect to the tibia best shown on mortise view Foot X-Ray 01/09/18 13:21 IMPRESSION: No acute fracture right foot Hip/Pelvis X-Ray 01/09/18 14:10 IMPRESSION: Nothing acute. No acute fracture or dislocation right hip. Lumbar Spine X-Ray 01/09/18 14:10 IMPRESSION: SPONDYLOSIS WITHOUT FRACTURE. Chest X-Ray 01/13/18 00:00 IMPRESSION: NO ACUTE RADIOGRAPHIC FINDING IN THE CHEST. Abdomen/Pelvis CT 01/14/18 00:00 IMPRESSION: 1. Findings compatible with small bowel obstruction with possible transition point in the mid abdomen. 2. Cholelithiasis. 2. Diverticulosis without evidence of acute diverticulitis. This exam was performed according to our departmental dose-optimization program, which includes automated exposure control, adjustment of the mA and/or kV according to patient size and/or use of iterative reconstruction technique. 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: Diabetes mellitus retirement insulin use: with retirement use Diabetes mellitus complication status: with neurologic complications Diabetes mellitus complication detail: with polyneuropathy Qualified Code(s): E11.42 - Type 2 diabetes mellitus with diabetic polyneuropathy; Z79.4 - senior care (current) use of insulin; Z79.4 - aquatic director (current) use of insulin; Z79.4 - senior care ( current) use of insulin; Z79.4 - senior care (current) use of insulin Is this a current diagnosis for this admission?: Yes (3) Diabetes mellitus type II, controlled Qualifiers: Diabetes mellitus deputy director of nursing insulin use: without deputy director of nursing use Diabetes mellitus complication status: without complication Qualified Code(s): E11.9 - Type 2 diabetes mellitus without complications Is this a current diagnosis for this admission?: Yes (4) Small bowel obstruction Is this a current diagnosis for this admission?: Yes Plan: Consult from surgery
[2018-01-14] MEDS: ATORVASTATIN CALCIUM 10 MG TABLET PO SCH (21:19)
[2018-01-15] MEDS: NORMAL SALINE 1000 ML 1,000 ML IV PRN ×2 (02:33→20:51)
[2018-01-15] MEDS: OXYCODONE-ACETAMINOPHEN 5-325 MG TABLET PO PRN (02:34)
[2018-01-15] MEDS: LANSOPRAZOLE 30 MG TAB.RAP.DR PO SCH (05:28)
[2018-01-15] MEDS: PREGABALIN 75 MG CAPSULE PO SCH ×2 (05:28→18:07)
--- NOTE | 2018-01-15 07:22 | PDOC PROGRESS REPORT ---
Subjective Progress Note for:: 01/15/18 Reason For Visit: FRACTURE OF RIGHT FIBULA 77-year-old white female with a right bimalleolar ankle fracture awaiting the opportunity for an open reduction internal fixation Physical Exam Vital Signs: Temp Pulse Resp BP Pulse Ox 37.3 C 90 19 121/64 91 L 01/14/18 23:00 01/14/18 23:00 01/14/18 23:00 01/14/18 23:00 01/14/18 23:00 Intake & Output 01/14/18 01/15/18 01/16/18 06:59 06:59 06:59 Intake Total 3072 1820 Output Total 2600 1400 Balance 472 420 Weight 132.5 kg 132.9 kg Results Laboratory Results: 01/14/18 05:44 01/09/18 18:20 Blood Blood Culture - Final NO GROWTH IN 5 DAYS 01/09/18 17:13 Blood Blood Culture - Final NO GROWTH IN 5 DAYS 01/09/18 18:15 Sputum Gram Stain - Final 01/09/18 18:15 Sputum Sputum Culture - Final NORMAL DICKSON 01/09/18 01/09/18 01/09/18 15:28 15:28 15:28 Creatine Kinase 179 H CK-MB (CK-2) 1.06 Troponin I < 0.012 NT-Pro-B Natriuret Pep 102 01/09/18 01/09/18 01/10/18 23:00 23:00 04:53 Creatine Kinase 221 H 190 H CK-MB (CK-2) 1.01 Troponin I < 0.012 NT-Pro-B Natriuret Pep 01/10/18 04:53 Creatine Kinase CK-MB (CK-2) 0.76 Troponin I < 0.012 NT-Pro-B Natriuret Pep Impressions: Ankle X-Ray 01/09/18 13:21 IMPRESSION: Acute minimally displaced medial malleolus and distal fibular metaphysis fractures. There is very mild lateral subluxation of the talus with respect to the tibia best shown on mortise view Foot X-Ray 01/09/18 13:21 IMPRESSION: No acute fracture right foot Hip/Pelvis X-Ray 01/09/18 14:10 IMPRESSION: Nothing acute. No acute fracture or dislocation right hip. Lumbar Spine X-Ray 01/09/18 14:10 IMPRESSION: SPONDYLOSIS WITHOUT FRACTURE. Chest X-Ray 01/13/18 00:00 IMPRESSION: NO ACUTE RADIOGRAPHIC FINDING IN THE CHEST. Abdomen/Pelvis CT 01/14/18 00:00 IMPRESSION: 1. Findings compatible with small bowel obstruction with possible transition point in the mid abdomen. 2. Cholelithiasis. 2. Diverticulosis without evidence of acute diverticulitis. This exam was performed according to our departmental dose-optimization program, which includes automated exposure control, adjustment of the mA and/or kV according to patient size and/or use of iterative reconstruction technique. Assessment & Plan - Diagnosis (1) Bimalleolar fracture of right ankle Qualifiers: Encounter type: initial encounter Fracture type: closed Qualified Code(s) : S82.841A - Displaced bimalleolar fracture of right lower leg, initial encounter for closed fracture Is this a current diagnosis for this admission?: Yes Plan: Plan will be to proceed with an open reduction internal fixation right by bimalleolar ankle fracture once cleared from surgical medical standpoint.
[2018-01-15 07:31] LABS: ANION GAP 12 (5-19); BLOOD UREA NITROGEN 20 mg/dL (7-20); CALCIUM 8.5 mg/dL (8.4-10.2); CARBON DIOXIDE 26 mmol/L (22-30); CHLORIDE 107 mmol/L (98-107); GLUCOSE 132 mg/dL (75-110); POTASSIUM 4.5 mmol/L (3.6-5.0); SODIUM 145.3 mmol/L (137-145)
[2018-01-15] MEDS: POLYETHYLENE GLYCOL 3350 POWDER 17 GM/1 PACKET PO SCH (11:48)
[2018-01-15] MEDS: TOLTERODINE TARTRATE 1 MG TABLET PO SCH ×2 (11:49→21:57)
[2018-01-15] MEDS: DOCUSATE SODIUM 100 MG CAPSULE PO SCH ×2 (11:49→18:07)
[2018-01-15] MEDS: AMLODIPINE BESYLATE 10 MG TABLET PO SCH (11:50)
--- NOTE | 2018-01-15 13:10 | RADIOLOGY REPORT (SQ) ---
EXAM DESCRIPTION: PICC INSERTION; U/S GUIDE FOR VASCULAR ACCESS; FLUORO/CV PLACEMENT COMPLETED DATE/TIME: 01/15/2018 12:57 pm REASON FOR STUDY: IV ACCESS COMPARISON: AP chest 01/13/2018 FLUOROSCOPY TIME: 15 seconds total fluoro time 1 digital radiographic chest image and 1 ultrasound images saved to PACS. TECHNIQUE: Fluoroscopic and ultrasound guided PICC placement. LIMITATIONS: None. PROCEDURE: After written consent and assessment were obtained, the patient was brought into the fluo roscopy room and place supine on the table. Ultrasound evaluation of potential access sites were perf ormed. After successfully identifying a patent left basilic vein, the left arm was prepped and draped in a sterile fashion along with the ultrasound probe. The entry site was anesthetized with 1% lidoca ine. A 21 gauge 7 cm needle was advanced through the skin and into the basilic vein under live ultras ound guidance. An ultrasound image was saved to PACS confirming access site. A .018 guide wire was then inserted through the needle and into the venous system. The needle was the removed and an 11 nadine de scalpel was used to make a 1cm skin incision. A 5 fr peel-away sheath was advanced over the wire and into the venous system. A measurement was then made using the existing wire and live fluoroscopic guidance. The wire was then removed and the trimmed. The PICC was advanced through the peel-away she ath and into the venous system. The peel-away sheath was removed and the catheter was adhered to the patients arm with a stat lock. The catheter was then aspirated and flushed and a sterile bandage was placed over the access site. A fluoroscopic spot image was saved to PACS confirming the catheter tip within the superior vena cava. IMPRESSION: SUCCESSFUL PLACEMENT OF A 5 FR DUAL LUMEN 41 CM PICC IN THE LEFT BASILIC VEIN. COMMENT: Patient medication list reviewed: Yes- Quality ID# [id number]:Eligible professional attests to doc umenting in the medical record they obtained, updated, or reviewed the patient's current medications. . Quality ID 145: Final reports for procedures using fluoroscopy that document radiation exposure marilynn landon, or exposure time and number of fluorographic images (if radiation exposure indices are not avail able) Quality ID #76: The patient was prepped and draped using maximum sterile barrier technique including cap, mask, sterile gown, sterile gloves, a large sterile sheet, hand hygiene, and 2% Chlorhexidine fo r cutaneous antisepsis. When ultrasound is used, sterile ultrasound techniques are followed requiring sterile gel and sterile probes. TECHNICAL DOCUMENTATION: JOB ID: [id number] [employer]- All Rights Reserved rev-01/11 Reading location - IP/workstation name: [email or web address]
[2018-01-15] MEDS: PRAMIPEXOLE DI-HCL 0.25 MG TABLET PO SCH (13:50)
[2018-01-15] MEDS: CEFTRIAXONE SODIUM 1,000 MG in DEXTROSE 5%-WATER 50 ML IV SCH (13:52)
[2018-01-15] MEDS: METFORMIN HCL 500 MG TABLET PO SCH (18:06)
--- NOTE | 2018-01-15 18:30 | PDOC PROGRESS REPORT ---
Subjective Progress Note for:: 01/15/18 Subjective:: Patient is n.p.o., KUB showed showed SBO, pass NGT Reason For Visit: FRACTURE OF RIGHT FIBULA Physical Exam Vital Signs: Temp Pulse Resp BP Pulse Ox 98.1 F 87 16 107/58 L 96 01/15/18 16:06 01/15/18 16:06 01/15/18 16:06 01/15/18 16:06 01/15/18 16:06 Intake & Output 01/14/18 01/15/18 01/16/18 06:59 06:59 06:59 Intake Total 3072 1820 0 Output Total 2600 1400 600 Balance 472 420 -600 Weight 132.5 kg 132.9 kg 132.9 kg General appearance: PRESENT: no acute distress Respiratory exam: PRESENT: clear to auscultation aliya Cardiovascular exam: PRESENT: +S1, +S2 GI/Abdominal exam: PRESENT: soft Neurological exam: PRESENT: alert Results Laboratory Results: 01/14/18 05:44 01/15/18 06:04 01/15/18 06:04 Sodium 145.3 H Potassium 4.5 Chloride 107 Carbon Dioxide 26 Anion Gap 12 BUN 20 Creatinine 0.84 Est GFR ( Amer) > 60 Est GFR (Non-Af Amer) > 60 Glucose 132 H Calcium 8.5 01/09/18 18:20 Blood Blood Culture - Final NO GROWTH IN 5 DAYS 01/09/18 17:13 Blood Blood Culture - Final NO GROWTH IN 5 DAYS 01/09/18 01/09/18 01/09/18 15:28 15:28 15:28 Creatine Kinase 179 H CK-MB (CK-2) 1.06 Troponin I < 0.012 NT-Pro-B Natriuret Pep 102 01/09/18 01/09/18 01/10/18 23:00 23:00 04:53 Creatine Kinase 221 H 190 H CK-MB (CK-2) 1.01 Troponin I < 0.012 NT-Pro-B Natriuret Pep 01/10/18 04:53 Creatine Kinase CK-MB (CK-2) 0.76 Troponin I < 0.012 NT-Pro-B Natriuret Pep Impressions: Ankle X-Ray 01/09/18 13:21 IMPRESSION: Acute minimally displaced medial malleolus and distal fibular metaphysis fractures. There is very mild lateral subluxation of the talus with respect to the tibia best shown on mortise view Foot X-Ray 01/09/18 13:21 IMPRESSION: No acute fracture right foot Hip/Pelvis X-Ray 01/09/18 14:10 IMPRESSION: Nothing acute. No acute fracture or dislocation right hip. Lumbar Spine X-Ray 01/09/18 14:10 IMPRESSION: SPONDYLOSIS WITHOUT FRACTURE. Chest X-Ray 01/13/18 00:00 IMPRESSION: NO ACUTE RADIOGRAPHIC FINDING IN THE CHEST. Abdomen/Pelvis CT 01/14/18 00:00 IMPRESSION: 1. Findings compatible with small bowel obstruction with possible transition point in the mid abdomen. 2. Cholelithiasis. 2. Diverticulosis without evidence of acute diverticulitis. This exam was performed according to our departmental dose-optimization program, which includes automated exposure control, adjustment of the mA and/or kV according to patient size and/or use of iterative reconstruction technique. Guidance Fluoroscopy 01/15/18 00:00 IMPRESSION: SUCCESSFUL PLACEMENT OF A 5 FR DUAL LUMEN 41 CM PICC IN THE LEFT BASILIC VEIN. Interventional Vascular Procedure 01/15/18 00:00 IMPRESSION: SUCCESSFUL PLACEMENT OF A 5 FR DUAL LUMEN 41 CM PICC IN THE LEFT BASILIC VEIN. PICC Line Insertion 01/15/18 00:00 IMPRESSION: SUCCESSFUL PLACEMENT OF A 5 FR DUAL LUMEN 41 CM PICC IN THE LEFT BASILIC VEIN. 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: Diabetes mellitus chcf insulin use: with chcf use Diabetes mellitus complication status: with neurologic complications Diabetes mellitus complication detail: with polyneuropathy Qualified Code(s): E11.42 - Type 2 diabetes mellitus with diabetic polyneuropathy; Z79.4 - FPC (current) use of insulin; Z79.4 - remote computer terminal operator (current) use of insulin; Z79.4 - remote computer terminal operator ( current) use of insulin; Z79.4 - remote computer terminal operator (current) use of insulin Is this a current diagnosis for this admission?: Yes (3) Diabetes mellitus type II, controlled Qualifiers: Diabetes mellitus ocean transportation intermediary insulin use: without chcf use Diabetes mellitus complication status: without complication Qualified Code(s): E11.9 - Type 2 diabetes mellitus without complications Is this a current diagnosis for this admission?: Yes (4) Small bowel obstruction Is this a current diagnosis for this admission?: Yes
[2018-01-15] MEDS: NORMAL SALINE 10 ML SDV (SCHEDULED) IV SCH (21:58)
[2018-01-15] MEDS: ATORVASTATIN CALCIUM 10 MG TABLET PO SCH (21:58)
[2018-01-16] MEDS: PREGABALIN 75 MG CAPSULE PO SCH (05:42)
[2018-01-16] MEDS: LANSOPRAZOLE 30 MG TAB.RAP.DR PO SCH (05:42)
--- NOTE | 2018-01-16 07:15 | PDOC PROGRESS REPORT ---
Subjective Progress Note for:: 01/16/18 Reason For Visit: FRACTURE OF RIGHT FIBULA 77-year-old female with a right bimalleolar ankle fracture and now a small bowel obstruction. Physical Exam Vital Signs: Temp Pulse Resp BP Pulse Ox 36.8 C 88 18 103/69 95 01/16/18 00:22 01/16/18 00:22 01/16/18 00:22 01/16/18 00:22 01/16/18 00:22 Intake & Output 01/15/18 01/16/18 01/17/18 06:59 06:59 06:59 Intake Total 1820 2040 Output Total 1400 1800 Balance 420 240 Weight 132.9 kg 132.9 kg Results Laboratory Results: 01/14/18 05:44 01/15/18 06:04 01/15/18 06:04 Sodium 145.3 H Potassium 4.5 Chloride 107 Carbon Dioxide 26 Anion Gap 12 BUN 20 Creatinine 0.84 Est GFR ( Amer) > 60 Est GFR (Non-Af Amer) > 60 Glucose 132 H Calcium 8.5 01/09/18 01/09/18 01/09/18 15:28 15:28 15:28 Creatine Kinase 179 H CK-MB (CK-2) 1.06 Troponin I < 0.012 NT-Pro-B Natriuret Pep 102 01/09/18 01/09/18 01/10/18 23:00 23:00 04:53 Creatine Kinase 221 H 190 H CK-MB (CK-2) 1.01 Troponin I < 0.012 NT-Pro-B Natriuret Pep 01/10/18 04:53 Creatine Kinase CK-MB (CK-2) 0.76 Troponin I < 0.012 NT-Pro-B Natriuret Pep Impressions: Ankle X-Ray 01/09/18 13:21 IMPRESSION: Acute minimally displaced medial malleolus and distal fibular metaphysis fractures. There is very mild lateral subluxation of the talus with respect to the tibia best shown on mortise view Foot X-Ray 01/09/18 13:21 IMPRESSION: No acute fracture right foot Hip/Pelvis X-Ray 01/09/18 14:10 IMPRESSION: Nothing acute. No acute fracture or dislocation right hip. Lumbar Spine X-Ray 01/09/18 14:10 IMPRESSION: SPONDYLOSIS WITHOUT FRACTURE. Chest X-Ray 01/13/18 00:00 IMPRESSION: NO ACUTE RADIOGRAPHIC FINDING IN THE CHEST. Abdomen/Pelvis CT 01/14/18 00:00 IMPRESSION: 1. Findings compatible with small bowel obstruction with possible transition point in the mid abdomen. 2. Cholelithiasis. 2. Diverticulosis without evidence of acute diverticulitis. This exam was performed according to our departmental dose-optimization program, which includes automated exposure control, adjustment of the mA and/or kV according to patient size and/or use of iterative reconstruction technique. Guidance Fluoroscopy 01/15/18 00:00 IMPRESSION: SUCCESSFUL PLACEMENT OF A 5 FR DUAL LUMEN 41 CM PICC IN THE LEFT BASILIC VEIN. Interventional Vascular Procedure 01/15/18 00:00 IMPRESSION: SUCCESSFUL PLACEMENT OF A 5 FR DUAL LUMEN 41 CM PICC IN THE LEFT BASILIC VEIN. PICC Line Insertion 01/15/18 00:00 IMPRESSION: SUCCESSFUL PLACEMENT OF A 5 FR DUAL LUMEN 41 CM PICC IN THE LEFT BASILIC VEIN. Assessment & Plan - Diagnosis (1) Bimalleolar fracture of right ankle Qualifiers: Encounter type: initial encounter Fracture type: closed Qualified Code(s) : S82.841A - Displaced bimalleolar fracture of right lower leg, initial encounter for closed fracture Is this a current diagnosis for this admission?: Yes Plan: Plan will be for open reduction internal fixation of right ankle fracture once medical and surgical conditions permit
[2018-01-16] MEDS: TOLTERODINE TARTRATE 1 MG TABLET PO SCH (11:29)
[2018-01-16] MEDS: DOCUSATE SODIUM 100 MG CAPSULE PO SCH ×2 (11:30→18:52)
[2018-01-16] MEDS: PRAMIPEXOLE DI-HCL 0.25 MG TABLET PO SCH (11:30)
[2018-01-16] MEDS: AMLODIPINE BESYLATE 10 MG TABLET PO SCH (11:30)
[2018-01-16] MEDS: POLYETHYLENE GLYCOL 3350 POWDER 17 GM/1 PACKET PO SCH (11:30)
[2018-01-16] MEDS: NORMAL SALINE 10 ML SDV (SCHEDULED) IV SCH ×2 (11:31→22:05)
[2018-01-16] MEDS: CEFTRIAXONE SODIUM 1,000 MG in DEXTROSE 5%-WATER 50 ML IV SCH (14:55)
--- NOTE | 2018-01-16 17:05 | RADIOLOGY REPORT (SQ) ---
EXAM DESCRIPTION: KUB/ABDOMEN (SINGLE VIEW) COMPLETED DATE/TIME: 01/16/2018 4:52 pm REASON FOR STUDY: SBO COMPARISON: 07/21/2016 NUMBER OF VIEWS: One view. TECHNIQUE: Supine radiographic image of the abdomen acquired. LIMITATIONS: None. FINDINGS: BOWEL GAS PATTERN: There are gas-filled, mildly distended loops of small bowel with sparin g of the ileum. CALCIFICATIONS: No suspicious calcifications. SOFT TISSUES: No gross mass or suggestion of organomegaly. HARDWARE: None in the abdomen. BONES: No acute fracture. No worrisome bone lesions. OTHER: No other significant finding. IMPRESSION: There may be a partial small bowel obstruction. TECHNICAL DOCUMENTATION: JOB ID: [id number] [employer]- All Rights Reserved Reading location - IP/workstation name: [email or web address]
--- NOTE | 2018-01-16 17:35 | PDOC PROGRESS REPORT ---
Subjective Progress Note for:: 01/16/18 Subjective:: Patient is n.p.o., KUB showed showed SBO, pass NGT Reason For Visit: FRACTURE OF RIGHT FIBULA Physical Exam Vital Signs: Temp Pulse Resp BP Pulse Ox 98.5 F 85 18 124/73 98 01/16/18 12:00 01/16/18 12:00 01/16/18 12:00 01/16/18 12:00 01/16/18 12:00 Intake & Output 01/15/18 01/16/18 01/17/18 06:59 06:59 06:59 Intake Total 1820 2040 Output Total 1400 1800 Balance 420 240 Weight 132.9 kg 132.9 kg General appearance: PRESENT: no acute distress Eye exam: PRESENT: PERRLA Respiratory exam: PRESENT: clear to auscultation aliya Cardiovascular exam: PRESENT: +S1, +S2 GI/Abdominal exam: PRESENT: soft Neurological exam: PRESENT: alert Results Laboratory Results: 01/14/18 05:44 01/15/18 06:04 01/09/18 01/09/18 01/09/18 15:28 15:28 15:28 Creatine Kinase 179 H CK-MB (CK-2) 1.06 Troponin I < 0.012 NT-Pro-B Natriuret Pep 102 01/09/18 01/09/18 01/10/18 23:00 23:00 04:53 Creatine Kinase 221 H 190 H CK-MB (CK-2) 1.01 Troponin I < 0.012 NT-Pro-B Natriuret Pep 01/10/18 04:53 Creatine Kinase CK-MB (CK-2) 0.76 Troponin I < 0.012 NT-Pro-B Natriuret Pep Impressions: Ankle X-Ray 01/09/18 13:21 IMPRESSION: Acute minimally displaced medial malleolus and distal fibular metaphysis fractures. There is very mild lateral subluxation of the talus with respect to the tibia best shown on mortise view Foot X-Ray 01/09/18 13:21 IMPRESSION: No acute fracture right foot Hip/Pelvis X-Ray 01/09/18 14:10 IMPRESSION: Nothing acute. No acute fracture or dislocation right hip. Lumbar Spine X-Ray 01/09/18 14:10 IMPRESSION: SPONDYLOSIS WITHOUT FRACTURE. Chest X-Ray 01/13/18 00:00 IMPRESSION: NO ACUTE RADIOGRAPHIC FINDING IN THE CHEST. Abdomen/Pelvis CT 01/14/18 00:00 IMPRESSION: 1. Findings compatible with small bowel obstruction with possible transition point in the mid abdomen. 2. Cholelithiasis. 2. Diverticulosis without evidence of acute diverticulitis. This exam was performed according to our departmental dose-optimization program, which includes automated exposure control, adjustment of the mA and/or kV according to patient size and/or use of iterative reconstruction technique. Guidance Fluoroscopy 01/15/18 00:00 IMPRESSION: SUCCESSFUL PLACEMENT OF A 5 FR DUAL LUMEN 41 CM PICC IN THE LEFT BASILIC VEIN. Interventional Vascular Procedure 01/15/18 00:00 IMPRESSION: SUCCESSFUL PLACEMENT OF A 5 FR DUAL LUMEN 41 CM PICC IN THE LEFT BASILIC VEIN. PICC Line Insertion 01/15/18 00:00 IMPRESSION: SUCCESSFUL PLACEMENT OF A 5 FR DUAL LUMEN 41 CM PICC IN THE LEFT BASILIC VEIN. KUB X-Ray 01/16/18 00:00 IMPRESSION: There may be a partial small bowel obstruction. 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: Diabetes mellitus convalescent sitter insulin use: with convalescent sitter use Diabetes mellitus complication status: with neurologic complications Diabetes mellitus complication detail: with polyneuropathy Qualified Code(s): E11.42 - Type 2 diabetes mellitus with diabetic polyneuropathy; Z79.4 - trouble clerk (current) use of insulin; Z79.4 - trouble clerk (current) use of insulin; Z79.4 - senior care ( current) use of insulin; Z79.4 - senior care (current) use of insulin Is this a current diagnosis for this admission?: Yes (3) Diabetes mellitus type II, controlled Qualifiers: Diabetes mellitus convalescent sitter insulin use: without longterm use Diabetes mellitus complication status: without complication Qualified Code(s): E11.9 - Type 2 diabetes mellitus without complications Is this a current diagnosis for this admission?: Yes (4) Small bowel obstruction Is this a current diagnosis for this admission?: Yes Plan: Past NG tube
[2018-01-16] MEDS ORDERED: PHARMACY COMMUNICATION ORDER MC NR (17:45)
[2018-01-16] MEDS: METFORMIN HCL 500 MG TABLET NG SCH (18:49)
[2018-01-16] MEDS: PREGABALIN 75 MG CAPSULE NG SCH (18:52)
--- NOTE | 2018-01-16 21:07 | PDOC PROGRESS REPORT ---
Subjective Progress Note for:: 01/16/18 Subjective:: This is a 77-year-old female with chronic constipation, who is status post fall. She suffered an ankle injury and is awaiting orthopedic intervention. Consultation was obtained several days ago for a "small bowel obstruction". At that time, it was felt that the patient most likely was suffering from severe constipation. Today, the patient denies any abdominal pain, nausea, or vomiting. The patient is passing large amounts of flatus. The patient had a soft bowel movement yesterday. The patient denies chest pain, shortness of breath. Does report pain in her ankle. Reason For Visit: FRACTURE OF RIGHT FIBULA Physical Exam Vital Signs: Temp Pulse Resp BP Pulse Ox 98.3 F 89 20 130/71 H 95 01/16/18 19:38 01/16/18 19:38 01/16/18 19:38 01/16/18 19:38 01/16/18 19:38 Intake & Output 01/15/18 01/16/18 01/17/18 06:59 06:59 06:59 Intake Total 1820 2040 0 Output Total 1400 1800 1900 Balance 420 240 -1900 Weight 132.9 kg 132.9 kg General appearance: PRESENT: no acute distress Head exam: PRESENT: atraumatic, normocephalic Eye exam: PRESENT: EOMI, PERRLA. ABSENT: scleral icterus Mouth exam: PRESENT: moist, neck supple Neck exam: ABSENT: meningismus, tenderness, thyromegaly, tracheal deviation Respiratory exam: PRESENT: decreased breath sounds. ABSENT: chest wall tenderness Cardiovascular exam: PRESENT: RRR GI/Abdominal exam: PRESENT: soft, other - Morbidly obese. ABSENT: tenderness Extremities exam: PRESENT: tenderness Neurological exam: PRESENT: alert, awake, oriented to person, oriented to place , oriented to time, CN II-XII grossly intact Psychiatric exam: ABSENT: agitated, anxious, depressed Skin exam: ABSENT: cyanosis, erythema Results Laboratory Results: 01/14/18 05:44 01/15/18 06:04 01/09/18 01/09/18 01/09/18 15:28 15:28 15:28 Creatine Kinase 179 H CK-MB (CK-2) 1.06 Troponin I < 0.012 NT-Pro-B Natriuret Pep 102 01/09/18 01/09/18 01/10/18 23:00 23:00 04:53 Creatine Kinase 221 H 190 H CK-MB (CK-2) 1.01 Troponin I < 0.012 NT-Pro-B Natriuret Pep 01/10/18 04:53 Creatine Kinase CK-MB (CK-2) 0.76 Troponin I < 0.012 NT-Pro-B Natriuret Pep Impressions: Ankle X-Ray 01/09/18 13:21 IMPRESSION: Acute minimally displaced medial malleolus and distal fibular metaphysis fractures. There is very mild lateral subluxation of the talus with respect to the tibia best shown on mortise view Foot X-Ray 01/09/18 13:21 IMPRESSION: No acute fracture right foot Hip/Pelvis X-Ray 01/09/18 14:10 IMPRESSION: Nothing acute. No acute fracture or dislocation right hip. Lumbar Spine X-Ray 01/09/18 14:10 IMPRESSION: SPONDYLOSIS WITHOUT FRACTURE. Chest X-Ray 01/13/18 00:00 IMPRESSION: NO ACUTE RADIOGRAPHIC FINDING IN THE CHEST. Abdomen/Pelvis CT 01/14/18 00:00 IMPRESSION: 1. Findings compatible with small bowel obstruction with possible transition point in the mid abdomen. 2. Cholelithiasis. 2. Diverticulosis without evidence of acute diverticulitis. This exam was performed according to our departmental dose-optimization program, which includes automated exposure control, adjustment of the mA and/or kV according to patient size and/or use of iterative reconstruction technique. Guidance Fluoroscopy 01/15/18 00:00 IMPRESSION: SUCCESSFUL PLACEMENT OF A 5 FR DUAL LUMEN 41 CM PICC IN THE LEFT BASILIC VEIN. Interventional Vascular Procedure 01/15/18 00:00 IMPRESSION: SUCCESSFUL PLACEMENT OF A 5 FR DUAL LUMEN 41 CM PICC IN THE LEFT BASILIC VEIN. PICC Line Insertion 01/15/18 00:00 IMPRESSION: SUCCESSFUL PLACEMENT OF A 5 FR DUAL LUMEN 41 CM PICC IN THE LEFT BASILIC VEIN. KUB X-Ray 01/16/18 00:00 IMPRESSION: There may be a partial small bowel obstruction. Assessment & Plan - Diagnosis (1) Chronic constipation Is this a current diagnosis for this admission?: Yes (2) Obesity Qualifiers: Obesity type: due to excess calories Qualified Code(s): E66.01 - Morbid ( severe) obesity due to excess calories Is this a current diagnosis for this admission?: Yes - Plan Summary Plan Summary: This is a 77-year-old female with a history of constipation. Currently she is passing flatus and having bowel movements. She denies nausea or vomiting. She certainly does not have a complete obstruction. I will repeat her x-rays tomorrow. Continue with stool softeners. If there is any doubt after her x- rays tomorrow, a small bowel follow-through would help visualize her small intestine. No NG tube necessary at this time. I will continue to follow this patient closely with you.
[2018-01-16] MEDS: TOLTERODINE TARTRATE 1 MG TABLET NG SCH (21:50)
[2018-01-16] MEDS: ATORVASTATIN CALCIUM 10 MG TABLET NG SCH (21:50)
[2018-01-17] MEDS: LANSOPRAZOLE 30 MG TAB.RAP.DR NG SCH (05:18)
[2018-01-17] MEDS: PREGABALIN 75 MG CAPSULE NG SCH ×2 (05:18→17:32)
--- NOTE | 2018-01-17 06:43 | PDOC PROGRESS REPORT ---
Subjective Progress Note for:: 01/17/18 Reason For Visit: FRACTURE OF RIGHT FIBULA Physical Exam Vital Signs: Temp Pulse Resp BP Pulse Ox 36.9 C 85 20 119/65 95 01/16/18 23:52 01/16/18 23:52 01/16/18 23:52 01/16/18 23:52 01/16/18 23:52 Intake & Output 01/15/18 01/16/18 01/17/18 06:59 06:59 06:59 Intake Total 1820 2040 0 Output Total 1400 1800 3200 Balance 420 240 -3200 Weight 132.9 kg 132.9 kg 132.2 kg General appearance: PRESENT: no acute distress Results Laboratory Results: 01/14/18 05:44 01/15/18 06:04 01/09/18 01/09/18 01/09/18 15:28 15:28 15:28 Creatine Kinase 179 H CK-MB (CK-2) 1.06 Troponin I < 0.012 NT-Pro-B Natriuret Pep 102 01/09/18 01/09/18 01/10/18 23:00 23:00 04:53 Creatine Kinase 221 H 190 H CK-MB (CK-2) 1.01 Troponin I < 0.012 NT-Pro-B Natriuret Pep 01/10/18 04:53 Creatine Kinase CK-MB (CK-2) 0.76 Troponin I < 0.012 NT-Pro-B Natriuret Pep Impressions: Ankle X-Ray 01/09/18 13:21 IMPRESSION: Acute minimally displaced medial malleolus and distal fibular metaphysis fractures. There is very mild lateral subluxation of the talus with respect to the tibia best shown on mortise view Foot X-Ray 01/09/18 13:21 IMPRESSION: No acute fracture right foot Hip/Pelvis X-Ray 01/09/18 14:10 IMPRESSION: Nothing acute. No acute fracture or dislocation right hip. Lumbar Spine X-Ray 01/09/18 14:10 IMPRESSION: SPONDYLOSIS WITHOUT FRACTURE. Chest X-Ray 01/13/18 00:00 IMPRESSION: NO ACUTE RADIOGRAPHIC FINDING IN THE CHEST. Abdomen/Pelvis CT 01/14/18 00:00 IMPRESSION: 1. Findings compatible with small bowel obstruction with possible transition point in the mid abdomen. 2. Cholelithiasis. 2. Diverticulosis without evidence of acute diverticulitis. This exam was performed according to our departmental dose-optimization program, which includes automated exposure control, adjustment of the mA and/or kV according to patient size and/or use of iterative reconstruction technique. Guidance Fluoroscopy 01/15/18 00:00 IMPRESSION: SUCCESSFUL PLACEMENT OF A 5 FR DUAL LUMEN 41 CM PICC IN THE LEFT BASILIC VEIN. Interventional Vascular Procedure 01/15/18 00:00 IMPRESSION: SUCCESSFUL PLACEMENT OF A 5 FR DUAL LUMEN 41 CM PICC IN THE LEFT BASILIC VEIN. PICC Line Insertion 01/15/18 00:00 IMPRESSION: SUCCESSFUL PLACEMENT OF A 5 FR DUAL LUMEN 41 CM PICC IN THE LEFT BASILIC VEIN. KUB X-Ray 01/16/18 00:00 IMPRESSION: There may be a partial small bowel obstruction. Status: Imported from PACS Assessment & Plan - Diagnosis (1) Bimalleolar fracture of right ankle Qualifiers: Encounter type: initial encounter Fracture type: closed Qualified Code(s) : S82.841A - Displaced bimalleolar fracture of right lower leg, initial encounter for closed fracture Is this a current diagnosis for this admission?: Yes Plan: GI problems seem to be resolving. Tentative plan to proceed with an open reduction internal fixation of her right bimalleolar ankle fracture tomorrow
--- NOTE | 2018-01-17 08:58 | RADIOLOGY REPORT (SQ) ---
EXAM DESCRIPTION: ABDOMEN 2 VIEWS COMPLETED DATE/TIME: 01/17/2018 7:53 am REASON FOR STUDY: distention COMPARISON: Abdominal films 01/16/2018 CT abdomen pelvis 01/14/2018 NUMBER OF VIEWS: Two views. TECHNIQUE: Supine and upright radiographic images of the abdomen acquired. LIMITATIONS: None. FINDINGS: FREE AIR: None. No abnormal gas collections. LUNG BASES: Grossly clear BOWEL GAS PATTERN: Few air-filled distended small bowel loops in the mid abdomen, nonspecific bowel g as pattern. This is similar compared to abdominal films 01/16/[address] 01/14/2018. CALCIFICATIONS: No suspicious calcifications. SOFT TISSUES: No gross mass or suggestion of organomegaly. HARDWARE: Perez catheter in the bladder BONES: No acute fracture. No worrisome bone lesions. OTHER: No other significant finding. IMPRESSION: Few air-filled distended small bowel loops in the mid abdomen, similar compared to previ ous studies. TECHNICAL DOCUMENTATION: JOB ID: [id number] [employer]- All Rights Reserved Reading location - IP/workstation name: [email or web address]
--- NOTE | 2018-01-17 09:42 | PDOC PROGRESS REPORT ---
Subjective Progress Note for:: 01/17/18 Subjective:: Feels well. Passing small amounts of gas and bowel movement. No nausea or vomiting. No abdominal pain. Reason For Visit: FRACTURE OF RIGHT FIBULA Physical Exam Vital Signs: Temp Pulse Resp BP Pulse Ox 98.4 F 85 20 119/65 95 01/16/18 23:52 01/16/18 23:52 01/16/18 23:52 01/16/18 23:52 01/16/18 23:52 Intake & Output 01/16/18 01/17/18 01/18/18 06:59 06:59 06:59 Intake Total 2040 850 Output Total 1800 3200 Balance 240 -2350 Weight 132.9 kg 132.2 kg General appearance: PRESENT: no acute distress, cooperative Respiratory exam: PRESENT: clear to auscultation aliya Cardiovascular exam: PRESENT: RRR GI/Abdominal exam: PRESENT: other - Diminished bowel sounds but abdomen is soft and nondistended and nontender to palpation. Results Laboratory Results: 01/14/18 05:44 01/15/18 06:04 01/09/18 01/09/18 01/09/18 15:28 15:28 15:28 Creatine Kinase 179 H CK-MB (CK-2) 1.06 Troponin I < 0.012 NT-Pro-B Natriuret Pep 102 01/09/18 01/09/18 01/10/18 23:00 23:00 04:53 Creatine Kinase 221 H 190 H CK-MB (CK-2) 1.01 Troponin I < 0.012 NT-Pro-B Natriuret Pep 01/10/18 04:53 Creatine Kinase CK-MB (CK-2) 0.76 Troponin I < 0.012 NT-Pro-B Natriuret Pep Impressions: Ankle X-Ray 01/09/18 13:21 IMPRESSION: Acute minimally displaced medial malleolus and distal fibular metaphysis fractures. There is very mild lateral subluxation of the talus with respect to the tibia best shown on mortise view Foot X-Ray 01/09/18 13:21 IMPRESSION: No acute fracture right foot Hip/Pelvis X-Ray 01/09/18 14:10 IMPRESSION: Nothing acute. No acute fracture or dislocation right hip. Lumbar Spine X-Ray 01/09/18 14:10 IMPRESSION: SPONDYLOSIS WITHOUT FRACTURE. Chest X-Ray 01/13/18 00:00 IMPRESSION: NO ACUTE RADIOGRAPHIC FINDING IN THE CHEST. Abdomen/Pelvis CT 01/14/18 00:00 IMPRESSION: 1. Findings compatible with small bowel obstruction with possible transition point in the mid abdomen. 2. Cholelithiasis. 2. Diverticulosis without evidence of acute diverticulitis. This exam was performed according to our departmental dose-optimization program, which includes automated exposure control, adjustment of the mA and/or kV according to patient size and/or use of iterative reconstruction technique. Guidance Fluoroscopy 01/15/18 00:00 IMPRESSION: SUCCESSFUL PLACEMENT OF A 5 FR DUAL LUMEN 41 CM PICC IN THE LEFT BASILIC VEIN. Interventional Vascular Procedure 01/15/18 00:00 IMPRESSION: SUCCESSFUL PLACEMENT OF A 5 FR DUAL LUMEN 41 CM PICC IN THE LEFT BASILIC VEIN. PICC Line Insertion 01/15/18 00:00 IMPRESSION: SUCCESSFUL PLACEMENT OF A 5 FR DUAL LUMEN 41 CM PICC IN THE LEFT BASILIC VEIN. KUB X-Ray 01/16/18 00:00 IMPRESSION: There may be a partial small bowel obstruction. Abdomen X-Ray 01/17/18 06:00 IMPRESSION: Few air-filled distended small bowel loops in the mid abdomen, similar compared to previous studies. Assessment & Plan - Diagnosis (1) Chronic constipation Is this a current diagnosis for this admission?: Yes Plan: Suspect patient just suffers from constipation worsened by her immobility. However with the specter of small bowel obstruction raised by radiology on CT and a subsequent KUB, will obtain a small bowel follow series to completely rule out this diagnosis.
--- NOTE | 2018-01-17 13:23 | RADIOLOGY REPORT (SQ) ---
EXAM DESCRIPTION: UPPER GI/SM BOWEL COMPLETED DATE/TIME: 01/17/2018 12:57 pm REASON FOR STUDY: r/o sbo, ILEUS COMPARISON: Abdominal films 01/17/2018, 01/16/2018 CT abdomen pelvis 01/14/2018 TECHNIQUE: Upper GI and small-bowel follow-through was performed with Gastrografin contrast. Multip le fluoroscopic images, overhead delayed images and spot images of the distal ileum were obtained. RADIATION DOSE: Total fluoro time 2.2 minutes. Total number of digital images: 34 LIMITATIONS: Patient unable to stand, study performed in the supine and semi-erect orientation FINDINGS: Esophagus is unremarkable. Normal motility and distensibility. Tiny sliding hiatal herni a. Normal gastric peristalsis and gastric emptying. Paucity of folds in the stomach, question atrophic gastritis. No ulcers. Duodenum decompressed, normal mucosal fold pattern. Small bowel loops are nondilated. Grossly normal mucosal fold pattern. Normal transit time. Normal distal ileum on spot films. By 1 hour, contrast is seen in the ascending colon. IMPRESSION: No small bowel obstruction TECHNICAL DOCUMENTATION: JOB ID: [id number] [employer]- All Rights Reserved Reading location - IP/workstation name: [email or web address]
[2018-01-17] MEDS: AMLODIPINE BESYLATE 10 MG TABLET NG SCH (16:35)
[2018-01-17] MEDS: NORMAL SALINE 10 ML SDV (SCHEDULED) IV SCH ×2 (16:35→21:20)
[2018-01-17] MEDS: POLYETHYLENE GLYCOL 3350 POWDER 17 GM/1 PACKET NG SCH (16:35)
[2018-01-17] MEDS: PRAMIPEXOLE DI-HCL 0.25 MG TABLET NG SCH (16:35)
[2018-01-17] MEDS: TOLTERODINE TARTRATE 1 MG TABLET NG SCH ×2 (16:35→21:20)
[2018-01-17] MEDS: DOCUSATE SODIUM 100 MG CAPSULE PO SCH ×2 (16:35→17:17)
--- NOTE | 2018-01-17 16:48 | PDOC PROGRESS REPORT ---
Subjective Progress Note for:: 01/17/18 Reason For Visit: FRACTURE OF RIGHT FIBULA Physical Exam Vital Signs: Temp Pulse Resp BP Pulse Ox 97.7 F 82 22 H 124/65 97 01/17/18 08:03 01/17/18 08:03 01/17/18 08:03 01/17/18 08:03 01/17/18 08:03 Intake & Output 01/16/18 01/17/18 01/18/18 06:59 06:59 06:59 Intake Total 2040 850 Output Total 1800 3200 Balance 240 -2350 Weight 132.9 kg 132.2 kg Results Laboratory Results: 01/14/18 05:44 01/15/18 06:04 01/09/18 01/09/18 01/09/18 15:28 15:28 15:28 Creatine Kinase 179 H CK-MB (CK-2) 1.06 Troponin I < 0.012 NT-Pro-B Natriuret Pep 102 01/09/18 01/09/18 01/10/18 23:00 23:00 04:53 Creatine Kinase 221 H 190 H CK-MB (CK-2) 1.01 Troponin I < 0.012 NT-Pro-B Natriuret Pep 01/10/18 04:53 Creatine Kinase CK-MB (CK-2) 0.76 Troponin I < 0.012 NT-Pro-B Natriuret Pep Impressions: Ankle X-Ray 01/09/18 13:21 IMPRESSION: Acute minimally displaced medial malleolus and distal fibular metaphysis fractures. There is very mild lateral subluxation of the talus with respect to the tibia best shown on mortise view Foot X-Ray 01/09/18 13:21 IMPRESSION: No acute fracture right foot Hip/Pelvis X-Ray 01/09/18 14:10 IMPRESSION: Nothing acute. No acute fracture or dislocation right hip. Lumbar Spine X-Ray 01/09/18 14:10 IMPRESSION: SPONDYLOSIS WITHOUT FRACTURE. Chest X-Ray 01/13/18 00:00 IMPRESSION: NO ACUTE RADIOGRAPHIC FINDING IN THE CHEST. Abdomen/Pelvis CT 01/14/18 00:00 IMPRESSION: 1. Findings compatible with small bowel obstruction with possible transition point in the mid abdomen. 2. Cholelithiasis. 2. Diverticulosis without evidence of acute diverticulitis. This exam was performed according to our departmental dose-optimization program, which includes automated exposure control, adjustment of the mA and/or kV according to patient size and/or use of iterative reconstruction technique. Guidance Fluoroscopy 01/15/18 00:00 IMPRESSION: SUCCESSFUL PLACEMENT OF A 5 FR DUAL LUMEN 41 CM PICC IN THE LEFT BASILIC VEIN. Interventional Vascular Procedure 01/15/18 00:00 IMPRESSION: SUCCESSFUL PLACEMENT OF A 5 FR DUAL LUMEN 41 CM PICC IN THE LEFT BASILIC VEIN. PICC Line Insertion 01/15/18 00:00 IMPRESSION: SUCCESSFUL PLACEMENT OF A 5 FR DUAL LUMEN 41 CM PICC IN THE LEFT BASILIC VEIN. KUB X-Ray 01/16/18 00:00 IMPRESSION: There may be a partial small bowel obstruction. Upper GI and Small Bowel X-Ray 01/17/18 00:00 IMPRESSION: No small bowel obstruction Abdomen X-Ray 01/17/18 06:00 IMPRESSION: Few air-filled distended small bowel loops in the mid abdomen, similar compared to previous studies. Assessment & Plan - Diagnosis (1) Chronic constipation Is this a current diagnosis for this admission?: Yes Plan: Suspect patient just suffers from constipation worsened by her immobility. Small bowel follow series demonstrates no evidence of small bowel obstruction. Recommend mobilization as soon as possible. Colace, MiraLAX. Will start her on liquids and advance as tolerated to solid food. General surgery will sign off. Please call us for any problems.
[2018-01-17] MEDS: METFORMIN HCL 500 MG TABLET NG SCH (17:17)
[2018-01-17] MEDS: CEFTRIAXONE SODIUM 1,000 MG in DEXTROSE 5%-WATER 50 ML IV SCH (17:31)
--- NOTE | 2018-01-17 17:55 | PDOC PROGRESS REPORT ---
Subjective Progress Note for:: 01/17/18 Subjective:: Patient is cleared by general surgery, she can proceed to orthopedic intervention at this time Reason For Visit: FRACTURE OF RIGHT FIBULA Physical Exam Vital Signs: Temp Pulse Resp BP Pulse Ox 99.5 F 87 16 119/64 96 01/17/18 15:56 01/17/18 15:56 01/17/18 15:56 01/17/18 15:56 01/17/18 15:56 Intake & Output 01/16/18 01/17/18 01/18/18 06:59 06:59 06:59 Intake Total 2040 850 Output Total 1800 3200 Balance 240 -2350 Weight 132.9 kg 132.2 kg General appearance: PRESENT: no acute distress Eye exam: PRESENT: PERRLA Respiratory exam: PRESENT: clear to auscultation aliya Cardiovascular exam: PRESENT: +S1, +S2 GI/Abdominal exam: PRESENT: soft Results Laboratory Results: 01/14/18 05:44 01/15/18 06:04 01/09/18 01/09/18 01/09/18 15:28 15:28 15:28 Creatine Kinase 179 H CK-MB (CK-2) 1.06 Troponin I < 0.012 NT-Pro-B Natriuret Pep 102 01/09/18 01/09/18 01/10/18 23:00 23:00 04:53 Creatine Kinase 221 H 190 H CK-MB (CK-2) 1.01 Troponin I < 0.012 NT-Pro-B Natriuret Pep 01/10/18 04:53 Creatine Kinase CK-MB (CK-2) 0.76 Troponin I < 0.012 NT-Pro-B Natriuret Pep Impressions: Ankle X-Ray 01/09/18 13:21 IMPRESSION: Acute minimally displaced medial malleolus and distal fibular metaphysis fractures. There is very mild lateral subluxation of the talus with respect to the tibia best shown on mortise view Foot X-Ray 01/09/18 13:21 IMPRESSION: No acute fracture right foot Hip/Pelvis X-Ray 01/09/18 14:10 IMPRESSION: Nothing acute. No acute fracture or dislocation right hip. Lumbar Spine X-Ray 01/09/18 14:10 IMPRESSION: SPONDYLOSIS WITHOUT FRACTURE. Chest X-Ray 01/13/18 00:00 IMPRESSION: NO ACUTE RADIOGRAPHIC FINDING IN THE CHEST. Abdomen/Pelvis CT 01/14/18 00:00 IMPRESSION: 1. Findings compatible with small bowel obstruction with possible transition point in the mid abdomen. 2. Cholelithiasis. 2. Diverticulosis without evidence of acute diverticulitis. This exam was performed according to our departmental dose-optimization program, which includes automated exposure control, adjustment of the mA and/or kV according to patient size and/or use of iterative reconstruction technique. Guidance Fluoroscopy 01/15/18 00:00 IMPRESSION: SUCCESSFUL PLACEMENT OF A 5 FR DUAL LUMEN 41 CM PICC IN THE LEFT BASILIC VEIN. Interventional Vascular Procedure 01/15/18 00:00 IMPRESSION: SUCCESSFUL PLACEMENT OF A 5 FR DUAL LUMEN 41 CM PICC IN THE LEFT BASILIC VEIN. PICC Line Insertion 01/15/18 00:00 IMPRESSION: SUCCESSFUL PLACEMENT OF A 5 FR DUAL LUMEN 41 CM PICC IN THE LEFT BASILIC VEIN. KUB X-Ray 01/16/18 00:00 IMPRESSION: There may be a partial small bowel obstruction. Upper GI and Small Bowel X-Ray 01/17/18 00:00 IMPRESSION: No small bowel obstruction Abdomen X-Ray 01/17/18 06:00 IMPRESSION: Few air-filled distended small bowel loops in the mid abdomen, similar compared to previous studies. 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 use: with shot core drill operator use Diabetes mellitus complication status: with neurologic complications Diabetes mellitus complication detail: with polyneuropathy Qualified Code(s): E11.42 - Type 2 diabetes mellitus with diabetic polyneuropathy; Z79.4 - detention (current) use of insulin; Z79.4 - 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
[2018-01-17] MEDS ORDERED: RINGERS SOLUTION,LACTATED 1,000 ML IV PRN (18:08)
[2018-01-17] MEDS: ATORVASTATIN CALCIUM 10 MG TABLET NG SCH (21:20)
[2018-01-18] MEDS: NORMAL SALINE 10 ML SDV (AFTER EACH USE) IV PRN (05:01)
[2018-01-18] MEDS: PREGABALIN 75 MG CAPSULE NG SCH ×2 (05:01→18:01)
[2018-01-18] MEDS: LANSOPRAZOLE 30 MG TAB.RAP.DR NG SCH (05:01)
[2018-01-18 06:28] LABS: ABSOLUTE EOSINOPHILS # (AUTO) 0.3 10^3/uL (0.0-0.6); ABSOLUTE LYMPHOCYTES (AUTO) 1.1 10^3/uL (0.5-4.7); ABSOLUTE NEUT (AUTO) 7.3 10^3/uL (1.7-8.2); BASOPHILS % (AUTO) 0.3 % (0-2); EOSINOPHILS % (AUTO) 2.7 % (0-6); HEMATOCRIT 31.1 % (36.0-47.0); HEMOGLOBIN 10.3 g/dL (12.0-15.5); LYMPHOCYTES % (AUTO) 11.5 % (13-45); MEAN CORPUSCULAR HEMOGLOBIN 29.4 pg (27.0-33.4); MEAN CORPUSCULAR HGB CONC 33.2 g/dL (32.0-36.0); MEAN CORPUSCULAR VOLUME 89 fl (80-97); MONOCYTES % (AUTO) 10.5 % (3-13); PLATELET COUNT 216 10^3/uL (150-450); RED BLOOD COUNT 3.51 10^6/uL (3.72-5.28); RED CELL DISTRIBUTION WIDTH 16.1 % (11.5-14.0); TOTAL CELLS COUNTED % (AUTO) 100 %; WHITE BLOOD COUNT 9.8 10^3/uL (4.0-10.5)
[2018-01-18 06:38] LABS: ANION GAP 13 (5-19); BLOOD UREA NITROGEN 15 mg/dL (7-20); CALCIUM 8.8 mg/dL (8.4-10.2); CARBON DIOXIDE 24 mmol/L (22-30); CHLORIDE 109 mmol/L (98-107); GLUCOSE 96 mg/dL (75-110); POTASSIUM 3.8 mmol/L (3.6-5.0); SODIUM 145.8 mmol/L (137-145)
[2018-01-18] MEDS ORDERED: MIDAZOLAM 2 MG/2 ML INJ ONE (07:10)
[2018-01-18] MEDS ORDERED: FENTANYL CITRATE INJ/PF 100 MCG/2 ML AMPUL ONE (07:10)
[2018-01-18] MEDS ORDERED: PROPOFOL INJ 200 MG/20 ML VIAL IV ONE (07:11)
[2018-01-18] MEDS ORDERED: ACETAMINOPHEN 100 ML IV ONE (07:12)
[2018-01-18] MEDS ORDERED: HYDROMORPHONE HCL INJ/PF 2 MG/ML AMPULE ONE (07:12)
[2018-01-18] MEDS ORDERED: CEFAZOLIN INJ 1 GM VIAL ONE (07:28)
[2018-01-18] MEDS ORDERED: TETRACAINE HCL/PF 20MG/2ML AMPULE (SPINAL) ONE (07:38)
[2018-01-18] MEDS ORDERED: PROMETHAZINE HCL INJ 25 MG/1 ML VIAL IV PRN (08:13)
[2018-01-18] MEDS ORDERED: DIPHENHYDRAMINE HCL 50 MG/ML VIAL IV PRN (08:13)
[2018-01-18] MEDS ORDERED: FENTANYL CITRATE INJ/PF 100 MCG/2 ML AMPUL IV PRN ×2 (08:13)
--- NOTE | 2018-01-18 08:22 | Operative Report ---
Operative Report DATE OF SURGERY: 01/18/18 PREOPERATIVE DIAGNOSIS: Right bimalleolar ankle fracture OPERATION: Open reduction internal fixation right bimalleolar ankle fracture SURGEON: PARVEEN ONTIVEROS ANESTHESIA: GA ESTIMATED BLOOD LOSS: 25 PROCEDURE: With the patient supine and operative table the right lower extremities prepped and draped in sterile fashion. The limb is elevated for exsanguination tourniquet inflated to 300 torr. Subsequent longitudinal incisions made over the distal fibula and sharp dissection was carried incision through the periosteal layer. The periosteum was elevated. The underlying fracture is visualized and reduced anatomically. A Zavalla titanium distal fibular plate is applied and secured with 3 screws approximately 3 screws distally. Is examined fluoroscopically both for fracture reduction as well as hardware placement and felt to be adequate. Attention is now turned to the medial malleolus. Sharp dissection was carried incision through the periosteum. The periosteum was elevated. The medial malleolus fracture is reduced anatomically. This is secured with a single 4.0 mm 50 mm cannulated screw. The tourniquet is deflated. Wounds irrigated with bulb lavage. Hemostasis obtained with electrocautery. Wound is closed in layers with interrupted Vicryl followed by neil. A sterile compressive dressing posterior plaster splint were applied and the patient's return to PACU in satisfactory condition.
[2018-01-18] MEDS ORDERED: RINGERS SOLUTION,LACTATED 1,000 ML IV PRN (08:48)
--- NOTE | 2018-01-18 08:48 | RADIOLOGY REPORT (SQ) ---
EXAM DESCRIPTION: ANKLE RIGHT AP/LATERAL; NO CHG FLUORO COMPLETED DATE/TIME: 01/18/2018 8:36 am REASON FOR STUDY: ORIF RT ANKLE COMPARISON: 01/10/2008 FLUOROSCOPY TIME: 14 seconds 7 digital radiographic C-arm images saved to PACS. TECHNIQUE: Intra-operative images acquired during surgical procedure to evaluate progress. NUMBER OF IMAGES: 7 digital radiographic C-arm images saved to pac's LIMITATIONS: None. FINDINGS: Intra procedural imaging and fluoro during ORIF bimalleolar fracture. Please see the oper ative report for further details IMPRESSION: Intra procedural imaging and fluoro COMMENT: Quality ID 145: Final reports for procedures using fluoroscopy that document radiation exp osure indices, or exposure time and number of fluorographic images (if radiation exposure indices are not available) Please consult full operative report of the attending physician for description of the procedure. TECHNICAL DOCUMENTATION: JOB ID: [id number] [employer]- All Rights Reserved Reading location - IP/workstation name: [email or web address]
--- NOTE | 2018-01-18 08:48 | RADIOLOGY REPORT (SQ) ---
EXAM DESCRIPTION: ANKLE RIGHT AP/LATERAL; NO CHG FLUORO COMPLETED DATE/TIME: 01/18/2018 8:36 am REASON FOR STUDY: ORIF RT ANKLE COMPARISON: 01/10/2008 FLUOROSCOPY TIME: 14 seconds 7 digital radiographic C-arm images saved to PACS. TECHNIQUE: Intra-operative images acquired during surgical procedure to evaluate progress. NUMBER OF IMAGES: 7 digital radiographic C-arm images saved to pac's LIMITATIONS: None. FINDINGS: Intra procedural imaging and fluoro during ORIF bimalleolar fracture. Please see the oper ative report for further details IMPRESSION: Intra procedural imaging and fluoro COMMENT: Quality ID 145: Final reports for procedures using fluoroscopy that document radiation exp osure indices, or exposure time and number of fluorographic images (if radiation exposure indices are not available) Please consult full operative report of the attending physician for description of the procedure. TECHNICAL DOCUMENTATION: JOB ID: [id number] [employer]- All Rights Reserved Reading location - IP/workstation name: [email or web address]
[2018-01-18] MEDS ORDERED: KETOROLAC TROMETHAMINE INJ/PF 30 MG/1 ML SDV ONE (08:51)
--- NOTE | 2018-01-18 09:32 | RADIOLOGY REPORT (SQ) ---
EXAM DESCRIPTION: ANKLE RIGHT COMPLETE COMPLETED DATE/TIME: 01/18/2018 9:10 am REASON FOR STUDY: POST OP ORIF RT ANKLE on 01/18/2018 COMPARISON: Ankle films 01/18/2018, 01/09/2018 NUMBER OF VIEWS: Two views. TECHNIQUE: AP and lateral radiographic images acquired of the right ankle. LIMITATIONS: Portable postoperative films in a plaster splint FINDINGS: Artifact from plaster splint over the right ankle. Post ORIF bimalleolar fracture with go od alignment at the ankle mortise. IMPRESSION: Satisfactory postoperative films TECHNICAL DOCUMENTATION: JOB ID: [id number] [employer]- All Rights Reserved Reading location - IP/workstation name: [email or web address]
[2018-01-18] MEDS: DOCUSATE SODIUM 100 MG CAPSULE PO SCH ×2 (10:46→18:01)
[2018-01-18] MEDS: NORMAL SALINE 10 ML SDV (SCHEDULED) IV SCH ×2 (10:46→21:32)
[2018-01-18] MEDS: POLYETHYLENE GLYCOL 3350 POWDER 17 GM/1 PACKET NG SCH (10:46)
[2018-01-18] MEDS ORDERED: MORPHINE SULFATE 10 MG/ML INJ IV PRN (12:09)
[2018-01-18] MEDS ORDERED: ONDANSETRON 4 MG TAB.RAPDIS PO PRN (12:30)
[2018-01-18] MEDS: CEFTRIAXONE SODIUM 1,000 MG in DEXTROSE 5%-WATER 50 ML IV SCH (12:36)
[2018-01-18] MEDS: TOLTERODINE TARTRATE 1 MG TABLET NG SCH ×2 (12:37→21:33)
[2018-01-18] MEDS: AMLODIPINE BESYLATE 10 MG TABLET NG SCH (12:37)
[2018-01-18] MEDS: PRAMIPEXOLE DI-HCL 0.25 MG TABLET NG SCH (12:38)
[2018-01-18] MEDS ORDERED: LIDOCAINE 2% INJ-PF (20 MG/ML) 2 ML AMPUL ONE (12:43)
[2018-01-18] MEDS ORDERED: SUCCINYLCHOLINE CHLORIDE INJ 200 MG/10 ML VIAL ONE (12:43)
[2018-01-18] MEDS ORDERED: DEXAMETHASONE SOD PHOSPHATE INJ 4 MG/1 ML VIAL ONE (12:43)
[2018-01-18] MEDS ORDERED: ONDANSETRON HCL INJ/PF 4 MG/2 ML SDV ONE (12:43)
[2018-01-18] MEDS ORDERED: (PENDING PHARMACY ID) (Warfarin Sodium 4 MG) PO SCH (17:15)
[2018-01-18] MEDS: CEFAZOLIN SODIUM 2 GM in DEXTROSE 5%-WATER 100 ML IV SCH ×2 (18:01→21:34)
[2018-01-18] MEDS: METFORMIN HCL 500 MG TABLET NG SCH (18:01)
--- NOTE | 2018-01-18 19:36 | PDOC PROGRESS REPORT ---
Subjective Progress Note for:: 01/18/18 Subjective:: She had ORIF of the right ankle today, start Coumadin Reason For Visit: FRACTURE OF RIGHT FIBULA Physical Exam Vital Signs: Temp Pulse Resp BP Pulse Ox 97.3 F 75 16 127/58 H 96 01/18/18 09:40 01/18/18 10:30 01/18/18 10:30 01/18/18 10:30 01/18/18 10:30 Intake & Output 01/17/18 01/18/18 01/19/18 06:59 06:59 06:59 Intake Total 850 2740 1793 Output Total 3200 1550 450 Balance -2350 1190 1343 Weight 132.2 kg 132.5 kg General appearance: PRESENT: no acute distress Eye exam: PRESENT: PERRLA Respiratory exam: PRESENT: clear to auscultation aliya Cardiovascular exam: PRESENT: +S1, +S2 Results Laboratory Results: 01/18/18 05:15 01/18/18 05:15 01/18/18 01/18/18 05:15 05:15 WBC 9.8 RBC 3.51 L Hgb 10.3 L Hct 31.1 L MCV 89 MCH 29.4 MCHC 33.2 RDW 16.1 H Plt Count 216 Seg Neutrophils % 75.0 Lymphocytes % 11.5 L Monocytes % 10.5 Eosinophils % 2.7 Basophils % 0.3 Absolute Neutrophils 7.3 Absolute Lymphocytes 1.1 Absolute Monocytes 1.0 Absolute Eosinophils 0.3 Absolute Basophils 0.0 Sodium 145.8 H Potassium 3.8 Chloride 109 H Carbon Dioxide 24 Anion Gap 13 BUN 15 Creatinine 0.82 Est GFR ( Amer) > 60 Est GFR (Non-Af Amer) > 60 Glucose 96 Calcium 8.8 01/09/18 01/09/18 01/09/18 15:28 15:28 15:28 Creatine Kinase 179 H CK-MB (CK-2) 1.06 Troponin I < 0.012 NT-Pro-B Natriuret Pep 102 01/09/18 01/09/18 01/10/18 23:00 23:00 04:53 Creatine Kinase 221 H 190 H CK-MB (CK-2) 1.01 Troponin I < 0.012 NT-Pro-B Natriuret Pep 01/10/18 04:53 Creatine Kinase CK-MB (CK-2) 0.76 Troponin I < 0.012 NT-Pro-B Natriuret Pep Impressions: Foot X-Ray 01/09/18 13:21 IMPRESSION: No acute fracture right foot Hip/Pelvis X-Ray 01/09/18 14:10 IMPRESSION: Nothing acute. No acute fracture or dislocation right hip. Lumbar Spine X-Ray 01/09/18 14:10 IMPRESSION: SPONDYLOSIS WITHOUT FRACTURE. Chest X-Ray 01/13/18 00:00 IMPRESSION: NO ACUTE RADIOGRAPHIC FINDING IN THE CHEST. Abdomen/Pelvis CT 01/14/18 00:00 IMPRESSION: 1. Findings compatible with small bowel obstruction with possible transition point in the mid abdomen. 2. Cholelithiasis. 2. Diverticulosis without evidence of acute diverticulitis. This exam was performed according to our departmental dose-optimization program, which includes automated exposure control, adjustment of the mA and/or kV according to patient size and/or use of iterative reconstruction technique. Guidance Fluoroscopy 01/15/18 00:00 IMPRESSION: SUCCESSFUL PLACEMENT OF A 5 FR DUAL LUMEN 41 CM PICC IN THE LEFT BASILIC VEIN. Interventional Vascular Procedure 01/15/18 00:00 IMPRESSION: SUCCESSFUL PLACEMENT OF A 5 FR DUAL LUMEN 41 CM PICC IN THE LEFT BASILIC VEIN. PICC Line Insertion 01/15/18 00:00 IMPRESSION: SUCCESSFUL PLACEMENT OF A 5 FR DUAL LUMEN 41 CM PICC IN THE LEFT BASILIC VEIN. KUB X-Ray 01/16/18 00:00 IMPRESSION: There may be a partial small bowel obstruction. Upper GI and Small Bowel X-Ray 01/17/18 00:00 IMPRESSION: No small bowel obstruction Abdomen X-Ray 01/17/18 06:00 IMPRESSION: Few air-filled distended small bowel loops in the mid abdomen, similar compared to previous studies. Ankle X-Ray 01/18/18 00:00 IMPRESSION: Satisfactory postoperative films Fluoroscopy 01/18/18 00:00 IMPRESSION: Intra procedural imaging and fluoro 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: Diabetes mellitus senior care insulin use: with senior care use Diabetes mellitus complication status: with neurologic complications Diabetes mellitus complication detail: with polyneuropathy Qualified Code(s): E11.42 - Type 2 diabetes mellitus with diabetic polyneuropathy; 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.4 - 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 incident response 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 (current) 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 of insulin; Z79.4 - security incident response specialist (current) use of insulin; Z79.4 - security incident response specialist ( current) use of insulin; Z79.4 - security incident response specialist (current) use of insulin Is this a current diagnosis for this admission?: Yes (3) Diabetes mellitus type II, controlled Qualifiers: Diabetes mellitus senior care insulin use: without rn hedis use Diabetes mellitus complication status: without complication Qualified Code(s): E11.9 - Type 2 diabetes mellitus without complications Is this a current diagnosis for this admission?: Yes (4) Small bowel obstruction Is this a current diagnosis for this admission?: Yes
[2018-01-18 21:21] LABS: INTERNATIONAL RATION (INR) 1.14; PROTHROMBIN TIME 15.2 SEC (11.4-15.4)
[2018-01-18] MEDS: WARFARIN SODIUM 4 MG TABLET PO SCH (21:33)
[2018-01-18] MEDS: ATORVASTATIN CALCIUM 10 MG TABLET NG SCH (21:33)
[2018-01-19] MEDS: PREGABALIN 75 MG CAPSULE NG SCH ×2 (05:30→17:21)
[2018-01-19] MEDS: LANSOPRAZOLE 30 MG TAB.RAP.DR NG SCH (05:30)
[2018-01-19] MEDS: OXYCODONE HCL IR 5 MG TABLET PO PRN ×3 (05:37→22:34)
[2018-01-19 06:14] LABS: HEMATOCRIT 31.1 % (36.0-47.0); HEMOGLOBIN 10.2 g/dL (12.0-15.5); MEAN CORPUSCULAR HEMOGLOBIN 28.9 pg (27.0-33.4); MEAN CORPUSCULAR HGB CONC 32.8 g/dL (32.0-36.0); MEAN CORPUSCULAR VOLUME 88 fl (80-97); PLATELET COUNT 224 10^3/uL (150-450); RED BLOOD COUNT 3.52 10^6/uL (3.72-5.28); RED CELL DISTRIBUTION WIDTH 15.9 % (11.5-14.0); WHITE BLOOD COUNT 13.1 10^3/uL (4.0-10.5)
[2018-01-19 06:43] LABS: ANION GAP 10 (5-19); BLOOD UREA NITROGEN 16 mg/dL (7-20); CALCIUM 8.7 mg/dL (8.4-10.2); CARBON DIOXIDE 26 mmol/L (22-30); CHLORIDE 108 mmol/L (98-107); GLUCOSE 132 mg/dL (75-110); POTASSIUM 3.9 mmol/L (3.6-5.0); SODIUM 143.9 mmol/L (137-145)
[2018-01-19 06:57] LABS: INTERNATIONAL RATION (INR) 1.25; PROTHROMBIN TIME 16.3 SEC (11.4-15.4)
[2018-01-19] MEDS: AMLODIPINE BESYLATE 10 MG TABLET NG SCH (09:55)
[2018-01-19] MEDS: TOLTERODINE TARTRATE 1 MG TABLET NG SCH ×2 (09:56→22:35)
[2018-01-19] MEDS: POLYETHYLENE GLYCOL 3350 POWDER 17 GM/1 PACKET NG SCH (09:56)
[2018-01-19] MEDS: DOCUSATE SODIUM 100 MG CAPSULE PO SCH ×2 (09:56→17:21)
[2018-01-19] MEDS: PRAMIPEXOLE DI-HCL 0.25 MG TABLET NG SCH (09:56)
[2018-01-19] MEDS: NORMAL SALINE 10 ML SDV (SCHEDULED) IV SCH ×2 (09:56→22:35)
[2018-01-19] MEDS: METFORMIN HCL 500 MG TABLET NG SCH (17:21)
--- NOTE | 2018-01-19 18:50 | PDOC PROGRESS REPORT ---
Subjective Progress Note for:: 01/19/18 Subjective:: No chest pain or difficulty with breathing. No fever or chills. No abdominal pain, nausea of vomiting. Reason For Visit: FRACTURE OF RIGHT FIBULA Physical Exam Vital Signs: Temp Pulse Resp BP Pulse Ox 97.3 F 85 16 121/74 89 L 01/19/18 15:18 01/19/18 15:18 01/19/18 15:18 01/19/18 15:18 01/19/18 15:18 Intake & Output 01/18/18 01/19/18 01/20/18 06:59 06:59 06:59 Intake Total 2740 4452 658 Output Total 1550 1550 500 Balance 1190 2902 158 Weight 132.5 kg 131.2 kg General appearance: PRESENT: no acute distress, morbidly obese Head exam: PRESENT: atraumatic, normocephalic Mouth exam: PRESENT: moist Respiratory exam: PRESENT: clear to auscultation aliya Cardiovascular exam: PRESENT: RRR. ABSENT: diastolic murmur, rubs, systolic murmur GI/Abdominal exam: PRESENT: normal bowel sounds, soft. ABSENT: distended, guarding, mass, organolmegaly, rebound, tenderness Extremities exam: PRESENT: other - right ankle fracture ORIF surgical site okay. ABSENT: pedal edema Musculoskeletal exam: PRESENT: tenderness - at operative site mild intensity and with movement Neurological exam: PRESENT: alert, awake, oriented to person, oriented to place , oriented to time, oriented to situation, CN II-XII grossly intact. ABSENT: motor sensory deficit Psychiatric exam: PRESENT: appropriate affect, normal mood. ABSENT: homicidal ideation, suicidal ideation Skin exam: PRESENT: dry, warm. ABSENT: cyanosis, rash Results Laboratory Results: 01/19/18 05:30 01/19/18 05:30 01/19/18 01/19/18 05:30 05:30 WBC 13.1 H RBC 3.52 L Hgb 10.2 L Hct 31.1 L MCV 88 MCH 28.9 MCHC 32.8 RDW 15.9 H Plt Count 224 Sodium 143.9 Potassium 3.9 Chloride 108 H Carbon Dioxide 26 Anion Gap 10 BUN 16 Creatinine 0.81 Est GFR ( Amer) > 60 Est GFR (Non-Af Amer) > 60 Glucose 132 H Calcium 8.7 01/09/18 01/09/18 01/09/18 15:28 15:28 15:28 Creatine Kinase 179 H CK-MB (CK-2) 1.06 Troponin I < 0.012 NT-Pro-B Natriuret Pep 102 01/09/18 01/09/18 01/10/18 23:00 23:00 04:53 Creatine Kinase 221 H 190 H CK-MB (CK-2) 1.01 Troponin I < 0.012 NT-Pro-B Natriuret Pep 01/10/18 04:53 Creatine Kinase CK-MB (CK-2) 0.76 Troponin I < 0.012 NT-Pro-B Natriuret Pep Impressions: Foot X-Ray 01/09/18 13:21 IMPRESSION: No acute fracture right foot Hip/Pelvis X-Ray 01/09/18 14:10 IMPRESSION: Nothing acute. No acute fracture or dislocation right hip. Lumbar Spine X-Ray 01/09/18 14:10 IMPRESSION: SPONDYLOSIS WITHOUT FRACTURE. Chest X-Ray 01/13/18 00:00 IMPRESSION: NO ACUTE RADIOGRAPHIC FINDING IN THE CHEST. Abdomen/Pelvis CT 01/14/18 00:00 IMPRESSION: 1. Findings compatible with small bowel obstruction with possible transition point in the mid abdomen. 2. Cholelithiasis. 2. Diverticulosis without evidence of acute diverticulitis. This exam was performed according to our departmental dose-optimization program, which includes automated exposure control, adjustment of the mA and/or kV according to patient size and/or use of iterative reconstruction technique. Guidance Fluoroscopy 01/15/18 00:00 IMPRESSION: SUCCESSFUL PLACEMENT OF A 5 FR DUAL LUMEN 41 CM PICC IN THE LEFT BASILIC VEIN. Interventional Vascular Procedure 01/15/18 00:00 IMPRESSION: SUCCESSFUL PLACEMENT OF A 5 FR DUAL LUMEN 41 CM PICC IN THE LEFT BASILIC VEIN. PICC Line Insertion 01/15/18 00:00 IMPRESSION: SUCCESSFUL PLACEMENT OF A 5 FR DUAL LUMEN 41 CM PICC IN THE LEFT BASILIC VEIN. KUB X-Ray 01/16/18 00:00 IMPRESSION: There may be a partial small bowel obstruction. Upper GI and Small Bowel X-Ray 01/17/18 00:00 IMPRESSION: No small bowel obstruction Abdomen X-Ray 01/17/18 06:00 IMPRESSION: Few air-filled distended small bowel loops in the mid abdomen, similar compared to previous studies. Ankle X-Ray 01/18/18 00:00 IMPRESSION: Satisfactory postoperative films Fluoroscopy 01/18/18 00:00 IMPRESSION: Intra procedural imaging and fluoro Assessment & Plan - Diagnosis (1) Bimalleolar fracture of right ankle Qualifiers: Encounter type: initial encounter Fracture type: closed Qualified Code(s) : S82.841A - Displaced bimalleolar fracture of right lower leg, initial encounter for closed fracture Is this a current diagnosis for this admission?: Yes Plan: See covering attending physician orders. 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 (3) Morbid obesity with BMI of 45.0-49.9, adult Is this a current diagnosis for this admission?: Yes Plan: See covering attending physician orders. - Time Time Spent with patient: 25-34 minutes Medications reviewed and adjusted accordingly: Yes Anticipated discharge: SNF - Inpatient Certification Based on my medical assessment, after consideration of the patient's comorbidities, presenting symptoms, or acuity I expect that the services needed warrant INPATIENT care.: Yes I certify that my determination is in accordance with my understanding of Medicare's requirements for reasonable and necessary INPATIENT services [42 CFR 412.3e].: Yes Medical Necessity: Need Close Monitoring Due to Risk of Patient Decompensation, Need For IV Fluids, Need For Continuous Telemetry Monitoring, Need for Surgery, Risk of Complication if Not Cared For in Hospital Post Hospital Care: D/C or Transfer Summary - Plan Summary Plan Summary: See covering attending physician orders.
[2018-01-19] MEDS: WARFARIN SODIUM 4 MG TABLET PO SCH (22:34)
[2018-01-19] MEDS: ATORVASTATIN CALCIUM 10 MG TABLET NG SCH (22:35)
[2018-01-20] MEDS: OXYCODONE HCL IR 5 MG TABLET PO PRN ×3 (06:00→22:52)
[2018-01-20] MEDS: PREGABALIN 75 MG CAPSULE NG SCH ×2 (06:00→17:13)
[2018-01-20] MEDS: LANSOPRAZOLE 30 MG TAB.RAP.DR NG SCH (06:01)
[2018-01-20] MEDS: NORMAL SALINE 10 ML SDV (AFTER EACH USE) IV PRN ×2 (06:01→22:52)
[2018-01-20 06:47] LABS: INTERNATIONAL RATION (INR) 1.12
--- NOTE | 2018-01-20 07:03 | PDOC PROGRESS REPORT ---
Subjective Progress Note for:: 01/20/18 Reason For Visit: FRACTURE OF RIGHT FIBULA 77-year-old white female status post open reduction internal fixation of her right bimalleolar ankle fracture. Patient's been seen by physical therapy postoperatively and is made limited progress. Physical Exam Vital Signs: Temp Pulse Resp BP Pulse Ox 36.9 C 63 13 126/75 H 98 01/20/18 00:00 01/20/18 00:00 01/20/18 00:00 01/20/18 00:00 01/20/18 00:00 Intake & Output 01/19/18 01/20/18 01/21/18 06:59 06:59 06:59 Intake Total 4452 658 Output Total 1550 700 Balance 2902 -42 Weight 131.2 kg 130.4 kg Physical Exam: Overweight middle-aged female lying comfortably in bed. She is alert oriented and appropriately conversive. General appearance: PRESENT: no acute distress Head exam: PRESENT: normocephalic Respiratory exam: PRESENT: unlabored Cardiovascular exam: PRESENT: RRR Pulses: PRESENT: +1 pedal pulses bilateral Vascular exam: PRESENT: normal capillary refill GI/Abdominal exam: PRESENT: soft Rectal exam: PRESENT: deferred Extremities exam: PRESENT: other - Right lower extremity immobilized in a short leg posterior plaster splint. Brisk capillary refill is intact each of the digits. Sensory examination is intact. Neurological exam: PRESENT: alert, awake, oriented to person, oriented to place , oriented to time, oriented to situation. ABSENT: motor sensory deficit Skin exam: PRESENT: dry, intact, warm. ABSENT: cyanosis, rash Results Laboratory Results: 01/19/18 05:30 01/19/18 05:30 01/09/18 01/09/18 01/09/18 15:28 15:28 15:28 Creatine Kinase 179 H CK-MB (CK-2) 1.06 Troponin I < 0.012 NT-Pro-B Natriuret Pep 102 01/09/18 01/09/18 01/10/18 23:00 23:00 04:53 Creatine Kinase 221 H 190 H CK-MB (CK-2) 1.01 Troponin I < 0.012 NT-Pro-B Natriuret Pep 01/10/18 04:53 Creatine Kinase CK-MB (CK-2) 0.76 Troponin I < 0.012 NT-Pro-B Natriuret Pep Impressions: Foot X-Ray 01/09/18 13:21 IMPRESSION: No acute fracture right foot Hip/Pelvis X-Ray 01/09/18 14:10 IMPRESSION: Nothing acute. No acute fracture or dislocation right hip. Lumbar Spine X-Ray 01/09/18 14:10 IMPRESSION: SPONDYLOSIS WITHOUT FRACTURE. Chest X-Ray 01/13/18 00:00 IMPRESSION: NO ACUTE RADIOGRAPHIC FINDING IN THE CHEST. Abdomen/Pelvis CT 01/14/18 00:00 IMPRESSION: 1. Findings compatible with small bowel obstruction with possible transition point in the mid abdomen. 2. Cholelithiasis. 2. Diverticulosis without evidence of acute diverticulitis. This exam was performed according to our departmental dose-optimization program, which includes automated exposure control, adjustment of the mA and/or kV according to patient size and/or use of iterative reconstruction technique. Guidance Fluoroscopy 01/15/18 00:00 IMPRESSION: SUCCESSFUL PLACEMENT OF A 5 FR DUAL LUMEN 41 CM PICC IN THE LEFT BASILIC VEIN. Interventional Vascular Procedure 01/15/18 00:00 IMPRESSION: SUCCESSFUL PLACEMENT OF A 5 FR DUAL LUMEN 41 CM PICC IN THE LEFT BASILIC VEIN. PICC Line Insertion 01/15/18 00:00 IMPRESSION: SUCCESSFUL PLACEMENT OF A 5 FR DUAL LUMEN 41 CM PICC IN THE LEFT BASILIC VEIN. KUB X-Ray 01/16/18 00:00 IMPRESSION: There may be a partial small bowel obstruction. Upper GI and Small Bowel X-Ray 01/17/18 00:00 IMPRESSION: No small bowel obstruction Abdomen X-Ray 01/17/18 06:00 IMPRESSION: Few air-filled distended small bowel loops in the mid abdomen, similar compared to previous studies. Ankle X-Ray 01/18/18 00:00 IMPRESSION: Satisfactory postoperative films Fluoroscopy 01/18/18 00:00 IMPRESSION: Intra procedural imaging and fluoro Status: Imported from PACS Assessment & Plan - Diagnosis (1) Bimalleolar fracture of right ankle Qualifiers: Encounter type: initial encounter Fracture type: closed Qualified Code(s) : S82.841A - Displaced bimalleolar fracture of right lower leg, initial encounter for closed fracture Is this a current diagnosis for this admission?: Yes Plan: Status post open reduction internal fixation of right bimalleolar ankle fracture. Patient being mobilized with physical therapy on a touchdown weightbearing restriction to the right lower extremity. Anticipate the need for retirement facility placement.
[2018-01-20] MEDS: AMLODIPINE BESYLATE 10 MG TABLET NG SCH (10:40)
[2018-01-20] MEDS: PRAMIPEXOLE DI-HCL 0.25 MG TABLET NG SCH (10:40)
[2018-01-20] MEDS: TOLTERODINE TARTRATE 1 MG TABLET NG SCH ×2 (10:40→22:51)
[2018-01-20] MEDS: NORMAL SALINE 10 ML SDV (SCHEDULED) IV SCH ×2 (10:40→22:51)
[2018-01-20] MEDS: POLYETHYLENE GLYCOL 3350 POWDER 17 GM/1 PACKET NG SCH (10:41)
[2018-01-20] MEDS: DOCUSATE SODIUM 100 MG CAPSULE PO SCH ×2 (10:41→17:13)
--- NOTE | 2018-01-20 17:09 | PDOC PROGRESS REPORT ---
Subjective Progress Note for:: 01/20/18 Subjective:: No chest pain or difficulty with breathing. No fever or chills. No abdominal pain, nausea of vomiting. Patient reported pain around PICC line and right lower extremity around her knee joint posteriorly due to cast moving into her soft tissue with knee flexion. PICC is functioning satisfactorily by nursing report. Reason For Visit: FRACTURE OF RIGHT FIBULA Physical Exam Vital Signs: Temp Pulse Resp BP Pulse Ox 98.1 F 99 20 136/72 H 94 01/20/18 15:36 01/20/18 15:36 01/20/18 15:36 01/20/18 15:36 01/20/18 15:36 Intake & Output 01/19/18 01/20/18 01/21/18 06:59 06:59 06:59 Intake Total 4452 658 Output Total 1550 700 Balance 2902 -42 Weight 131.2 kg 130.4 kg Physical Exam: General appearance: PRESENT: no acute distress, morbidly obese Head exam: PRESENT: atraumatic, normocephalic Mouth exam: PRESENT: moist Respiratory exam: PRESENT: clear to auscultation aliya Cardiovascular exam: PRESENT: RRR. ABSENT: diastolic murmur, rubs, systolic murmur GI/Abdominal exam: PRESENT: normal bowel sounds, soft. ABSENT: distended, guarding, mass, organolmegaly, rebound, tenderness Extremities exam: PRESENT: other - right ankle fracture ORIF surgical site okay. Expressed tenderness to palpation over posterior aspect of right knee and lower thigh regions. ABSENT: pedal edema Musculoskeletal exam: PRESENT: tenderness - at operative site mild intensity and with movement Neurological exam: PRESENT: alert, awake, oriented to person, oriented to place , oriented to time, oriented to situation, CN II-XII grossly intact. ABSENT: motor sensory deficit Psychiatric exam: PRESENT: appropriate affect, normal mood. ABSENT: homicidal ideation, suicidal ideation Skin exam: PRESENT: dry, warm. ABSENT: cyanosis, rash Results Laboratory Results: 01/19/18 05:30 01/19/18 05:30 01/09/18 01/09/18 01/09/18 15:28 15:28 15:28 Creatine Kinase 179 H CK-MB (CK-2) 1.06 Troponin I < 0.012 NT-Pro-B Natriuret Pep 102 01/09/18 01/09/18 01/10/18 23:00 23:00 04:53 Creatine Kinase 221 H 190 H CK-MB (CK-2) 1.01 Troponin I < 0.012 NT-Pro-B Natriuret Pep 01/10/18 04:53 Creatine Kinase CK-MB (CK-2) 0.76 Troponin I < 0.012 NT-Pro-B Natriuret Pep Impressions: Foot X-Ray 01/09/18 13:21 IMPRESSION: No acute fracture right foot Hip/Pelvis X-Ray 01/09/18 14:10 IMPRESSION: Nothing acute. No acute fracture or dislocation right hip. Lumbar Spine X-Ray 01/09/18 14:10 IMPRESSION: SPONDYLOSIS WITHOUT FRACTURE. Chest X-Ray 01/13/18 00:00 IMPRESSION: NO ACUTE RADIOGRAPHIC FINDING IN THE CHEST. Abdomen/Pelvis CT 01/14/18 00:00 IMPRESSION: 1. Findings compatible with small bowel obstruction with possible transition point in the mid abdomen. 2. Cholelithiasis. 2. Diverticulosis without evidence of acute diverticulitis. This exam was performed according to our departmental dose-optimization program, which includes automated exposure control, adjustment of the mA and/or kV according to patient size and/or use of iterative reconstruction technique. Guidance Fluoroscopy 01/15/18 00:00 IMPRESSION: SUCCESSFUL PLACEMENT OF A 5 FR DUAL LUMEN 41 CM PICC IN THE LEFT BASILIC VEIN. Interventional Vascular Procedure 01/15/18 00:00 IMPRESSION: SUCCESSFUL PLACEMENT OF A 5 FR DUAL LUMEN 41 CM PICC IN THE LEFT BASILIC VEIN. PICC Line Insertion 01/15/18 00:00 IMPRESSION: SUCCESSFUL PLACEMENT OF A 5 FR DUAL LUMEN 41 CM PICC IN THE LEFT BASILIC VEIN. KUB X-Ray 01/16/18 00:00 IMPRESSION: There may be a partial small bowel obstruction. Upper GI and Small Bowel X-Ray 01/17/18 00:00 IMPRESSION: No small bowel obstruction Abdomen X-Ray 01/17/18 06:00 IMPRESSION: Few air-filled distended small bowel loops in the mid abdomen, similar compared to previous studies. Ankle X-Ray 01/18/18 00:00 IMPRESSION: Satisfactory postoperative films Fluoroscopy 01/18/18 00:00 IMPRESSION: Intra procedural imaging and fluoro 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: Diabetes mellitus intermediate insulin use: with manager terminal use Diabetes mellitus complication status: with neurologic complications Diabetes mellitus complication detail: with polyneuropathy Qualified Code(s): E11.42 - Type 2 diabetes mellitus with diabetic polyneuropathy; Z79.4 - skilled nursing (current) use of insulin; Z79.4 - manager terminal (current) use of insulin; Z79.4 - manager terminal ( current) use of insulin; Z79.4 - skilled nursing (current) use of insulin Is this a current diagnosis for this admission?: Yes (3) Morbid obesity with BMI of 45.0-49.9, adult Is this a current diagnosis for this admission?: Yes - Time Time Spent with patient: 25-34 minutes Anticipated discharge: SNF - for short term rehabilitation due to her poor performance in physical therapy sessions. - Inpatient Certification Based on my medical assessment, after consideration of the patient's comorbidities, presenting symptoms, or acuity I expect that the services needed warrant INPATIENT care.: Yes I certify that my determination is in accordance with my understanding of Medicare's requirements for reasonable and necessary INPATIENT services [42 CFR 412.3e].: Yes Medical Necessity: Need Close Monitoring Due to Risk of Patient Decompensation, Need For IV Fluids, Need for Surgery, Risk of Complication if Not Cared For in Hospital Post Hospital Care: D/C or Transfer Summary - Plan Summary Plan Summary: Increase Coumadin to 7.5 mg p.o x 1 dose tonight. Restart on heparin DVT prophylaxis dosing pending therapeutic INR status. Maintain on all other medication management.
[2018-01-20] MEDS: METFORMIN HCL 500 MG TABLET NG SCH (17:13)
[2018-01-20] MEDS ORDERED: WARFARIN SODIUM 7.5 MG TABLET PO SCH (22:00)
[2018-01-20] MEDS: HEPARIN SOD (PORCINE) 5,000 UNIT/ML 1 ML SYRINGE SUBCUT SCH (22:51)
[2018-01-20] MEDS: ATORVASTATIN CALCIUM 10 MG TABLET NG SCH (22:51)
[2018-01-20] MEDS ORDERED: WARFARIN SODIUM 5 MG TABLET ONE ×2 (23:10→23:11)
[2018-01-21] MEDS: OXYCODONE HCL IR 5 MG TABLET PO PRN (05:50)
[2018-01-21] MEDS: HEPARIN SOD (PORCINE) 5,000 UNIT/ML 1 ML SYRINGE SUBCUT SCH ×3 (05:51→22:07)
[2018-01-21] MEDS: PREGABALIN 75 MG CAPSULE NG SCH ×2 (05:51→17:18)
[2018-01-21] MEDS: NORMAL SALINE 10 ML SDV (AFTER EACH USE) IV PRN (05:51)
[2018-01-21] MEDS: LANSOPRAZOLE 30 MG TAB.RAP.DR NG SCH (05:51)
[2018-01-21 06:15] LABS: INTERNATIONAL RATION (INR) 1.18; PROTHROMBIN TIME 15.6 SEC (11.4-15.4)
--- NOTE | 2018-01-21 06:23 | PDOC PROGRESS REPORT ---
Subjective Reason For Visit: FRACTURE OF RIGHT FIBULA 77-year-old female status post open reduction internal fixation of a right bimalleolar ankle fracture. Patient now complaining this morning of right upper extremity and forequarter pain and swelling. Physical Exam Vital Signs: Temp Pulse Resp BP Pulse Ox 37.2 C 90 14 130/64 H 92 01/20/18 23:17 01/20/18 23:17 01/20/18 23:17 01/20/18 23:17 01/20/18 23:17 Intake & Output 01/19/18 01/20/18 01/21/18 06:59 06:59 06:59 Intake Total 4452 658 837 Output Total 1550 700 Balance 2902 -42 837 Weight 131.2 kg 130.4 kg 131.3 kg General appearance: PRESENT: no acute distress, mild distress Musculoskeletal exam: PRESENT: other - Right lower extremity dressing clean dry and intact Neurological exam: PRESENT: alert, awake, oriented to person, oriented to place , oriented to time, oriented to situation Results Laboratory Results: 01/19/18 05:30 01/19/18 05:30 01/09/18 01/09/18 01/09/18 15:28 15:28 15:28 Creatine Kinase 179 H CK-MB (CK-2) 1.06 Troponin I < 0.012 NT-Pro-B Natriuret Pep 102 01/09/18 01/09/18 01/10/18 23:00 23:00 04:53 Creatine Kinase 221 H 190 H CK-MB (CK-2) 1.01 Troponin I < 0.012 NT-Pro-B Natriuret Pep 01/10/18 04:53 Creatine Kinase CK-MB (CK-2) 0.76 Troponin I < 0.012 NT-Pro-B Natriuret Pep Impressions: Foot X-Ray 01/09/18 13:21 IMPRESSION: No acute fracture right foot Hip/Pelvis X-Ray 01/09/18 14:10 IMPRESSION: Nothing acute. No acute fracture or dislocation right hip. Lumbar Spine X-Ray 01/09/18 14:10 IMPRESSION: SPONDYLOSIS WITHOUT FRACTURE. Chest X-Ray 01/13/18 00:00 IMPRESSION: NO ACUTE RADIOGRAPHIC FINDING IN THE CHEST. Abdomen/Pelvis CT 01/14/18 00:00 IMPRESSION: 1. Findings compatible with small bowel obstruction with possible transition point in the mid abdomen. 2. Cholelithiasis. 2. Diverticulosis without evidence of acute diverticulitis. This exam was performed according to our departmental dose-optimization program, which includes automated exposure control, adjustment of the mA and/or kV according to patient size and/or use of iterative reconstruction technique. Guidance Fluoroscopy 01/15/18 00:00 IMPRESSION: SUCCESSFUL PLACEMENT OF A 5 FR DUAL LUMEN 41 CM PICC IN THE LEFT BASILIC VEIN. Interventional Vascular Procedure 01/15/18 00:00 IMPRESSION: SUCCESSFUL PLACEMENT OF A 5 FR DUAL LUMEN 41 CM PICC IN THE LEFT BASILIC VEIN. PICC Line Insertion 01/15/18 00:00 IMPRESSION: SUCCESSFUL PLACEMENT OF A 5 FR DUAL LUMEN 41 CM PICC IN THE LEFT BASILIC VEIN. KUB X-Ray 01/16/18 00:00 IMPRESSION: There may be a partial small bowel obstruction. Upper GI and Small Bowel X-Ray 01/17/18 00:00 IMPRESSION: No small bowel obstruction Abdomen X-Ray 01/17/18 06:00 IMPRESSION: Few air-filled distended small bowel loops in the mid abdomen, similar compared to previous studies. Ankle X-Ray 01/18/18 00:00 IMPRESSION: Satisfactory postoperative films Fluoroscopy 01/18/18 00:00 IMPRESSION: Intra procedural imaging and fluoro Status: Imported from PACS Assessment & Plan - Diagnosis (1) Bimalleolar fracture of right ankle Qualifiers: Encounter type: initial encounter Fracture type: closed Qualified Code(s) : S82.841A - Displaced bimalleolar fracture of right lower leg, initial encounter for closed fracture Is this a current diagnosis for this admission?: Yes Plan: The patient can be discharged from an orthopedic standpoint. Anticipate the need for correction facility placement because of a relatively limited functional level.
[2018-01-21] MEDS: POLYETHYLENE GLYCOL 3350 POWDER 17 GM/1 PACKET NG SCH (09:13)
[2018-01-21] MEDS: TOLTERODINE TARTRATE 1 MG TABLET NG SCH ×2 (09:15→21:03)
[2018-01-21] MEDS: AMLODIPINE BESYLATE 10 MG TABLET NG SCH (09:15)
[2018-01-21] MEDS: DOCUSATE SODIUM 100 MG CAPSULE PO SCH ×2 (09:15→17:18)
[2018-01-21] MEDS: NORMAL SALINE 10 ML SDV (SCHEDULED) IV SCH ×2 (09:16→22:07)
[2018-01-21] MEDS: PRAMIPEXOLE DI-HCL 0.25 MG TABLET NG SCH (09:16)
--- NOTE | 2018-01-21 16:34 | PDOC PROGRESS REPORT ---
Subjective Progress Note for:: 01/21/18 Subjective:: No chest pain or difficulty with breathing. No fever or chills. No abdominal pain, nausea of vomiting. Patient reported continue hester around left arm PICC line site and shoulder joint as well as right thigh behind right knee joint. Reason For Visit: FRACTURE OF RIGHT FIBULA Physical Exam Vital Signs: Temp Pulse Resp BP Pulse Ox 98.8 F 102 H 14 114/75 93 01/21/18 15:26 01/21/18 15:26 01/21/18 15:26 01/21/18 15:26 01/21/18 15:26 Intake & Output 01/20/18 01/21/18 01/22/18 06:59 06:59 06:59 Intake Total 658 837 Output Total 700 Balance -42 837 Weight 130.4 kg 131.3 kg Physical Exam: General appearance: PRESENT: no acute distress, morbidly obese Head exam: PRESENT: atraumatic, normocephalic Mouth exam: PRESENT: moist Respiratory exam: PRESENT: clear to auscultation aliya Cardiovascular exam: PRESENT: RRR. ABSENT: diastolic murmur, rubs, systolic murmur GI/Abdominal exam: PRESENT: normal bowel sounds, soft. ABSENT: distended, guarding, mass, organolmegaly, rebound, tenderness Extremities exam: PRESENT: other - right ankle fracture ORIF surgical site okay. Expressed tenderness to palpation over posterior aspect of right knee and lower thigh regions. ABSENT: pedal edema Musculoskeletal exam: PRESENT: tenderness - at operative site mild intensity and with movement Neurological exam: PRESENT: alert, awake, oriented to person, oriented to place , oriented to time, oriented to situation, CN II-XII grossly intact. ABSENT: motor sensory deficit Psychiatric exam: PRESENT: appropriate affect, normal mood. ABSENT: homicidal ideation, suicidal ideation Skin exam: PRESENT: dry, warm. ABSENT: cyanosis, rash Results Laboratory Results: 01/19/18 05:30 01/19/18 05:30 01/09/18 01/09/18 01/09/18 15:28 15:28 15:28 Creatine Kinase 179 H CK-MB (CK-2) 1.06 Troponin I < 0.012 NT-Pro-B Natriuret Pep 102 01/09/18 01/09/18 01/10/18 23:00 23:00 04:53 Creatine Kinase 221 H 190 H CK-MB (CK-2) 1.01 Troponin I < 0.012 NT-Pro-B Natriuret Pep 01/10/18 04:53 Creatine Kinase CK-MB (CK-2) 0.76 Troponin I < 0.012 NT-Pro-B Natriuret Pep Impressions: Foot X-Ray 01/09/18 13:21 IMPRESSION: No acute fracture right foot Hip/Pelvis X-Ray 01/09/18 14:10 IMPRESSION: Nothing acute. No acute fracture or dislocation right hip. Lumbar Spine X-Ray 01/09/18 14:10 IMPRESSION: SPONDYLOSIS WITHOUT FRACTURE. Chest X-Ray 01/13/18 00:00 IMPRESSION: NO ACUTE RADIOGRAPHIC FINDING IN THE CHEST. Abdomen/Pelvis CT 01/14/18 00:00 IMPRESSION: 1. Findings compatible with small bowel obstruction with possible transition point in the mid abdomen. 2. Cholelithiasis. 2. Diverticulosis without evidence of acute diverticulitis. This exam was performed according to our departmental dose-optimization program, which includes automated exposure control, adjustment of the mA and/or kV according to patient size and/or use of iterative reconstruction technique. Guidance Fluoroscopy 01/15/18 00:00 IMPRESSION: SUCCESSFUL PLACEMENT OF A 5 FR DUAL LUMEN 41 CM PICC IN THE LEFT BASILIC VEIN. Interventional Vascular Procedure 01/15/18 00:00 IMPRESSION: SUCCESSFUL PLACEMENT OF A 5 FR DUAL LUMEN 41 CM PICC IN THE LEFT BASILIC VEIN. PICC Line Insertion 01/15/18 00:00 IMPRESSION: SUCCESSFUL PLACEMENT OF A 5 FR DUAL LUMEN 41 CM PICC IN THE LEFT BASILIC VEIN. KUB X-Ray 01/16/18 00:00 IMPRESSION: There may be a partial small bowel obstruction. Upper GI and Small Bowel X-Ray 01/17/18 00:00 IMPRESSION: No small bowel obstruction Abdomen X-Ray 01/17/18 06:00 IMPRESSION: Few air-filled distended small bowel loops in the mid abdomen, similar compared to previous studies. Ankle X-Ray 01/18/18 00:00 IMPRESSION: Satisfactory postoperative films Fluoroscopy 01/18/18 00:00 IMPRESSION: Intra procedural imaging and fluoro 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: Diabetes mellitus fci insulin use: with termite control technician use Diabetes mellitus complication status: with neurologic complications Diabetes mellitus complication detail: with polyneuropathy Qualified Code(s): E11.42 - Type 2 diabetes mellitus with diabetic polyneuropathy; Z79.4 - middle or intermediate school principal (current) use of insulin; Z79.4 - middle or intermediate school principal (current) use of insulin; Z79.4 - detention ( current) use of insulin; Z79.4 - middle or intermediate school principal (current) use of insulin Is this a current diagnosis for this admission?: Yes (3) Morbid obesity with BMI of 45.0-49.9, adult Is this a current diagnosis for this admission?: Yes (4) Chronic deep vein thrombosis (DVT) Qualifiers: Affected thrombotic vein of extremity: unspecified vein of extremity Laterality: unspecified laterality Is this a current diagnosis for this admission?: Yes Plan: Continue Coumadin therapy with dose adjustment tonight. - Time Time Spent with patient: 25-34 minutes Medications reviewed and adjusted accordingly: Yes Anticipated discharge: SNF Within: Other - Inpatient Certification Based on my medical assessment, after consideration of the patient's comorbidities, presenting symptoms, or acuity I expect that the services needed warrant INPATIENT care.: Yes I certify that my determination is in accordance with my understanding of Medicare's requirements for reasonable and necessary INPATIENT services [42 CFR 412.3e].: Yes Medical Necessity: Need Close Monitoring Due to Risk of Patient Decompensation, Need For IV Fluids, Need For Continuous Telemetry Monitoring, Need for Surgery, Risk of Complication if Not Cared For in Hospital Post Hospital Care: D/C or Transfer Summary - Plan Summary Plan Summary: See covering attending physician orders. Her INR remain subtherapeutic for chronic DVT on Coumadin therapy.
[2018-01-21] MEDS: METFORMIN HCL 500 MG TABLET NG SCH (17:18)
[2018-01-21] MEDS ORDERED: WARFARIN SODIUM 7.5 MG TABLET PO SCH (22:00)
[2018-01-21] MEDS: ATORVASTATIN CALCIUM 10 MG TABLET NG SCH (22:07)
[2018-01-22] MEDS: HEPARIN SOD (PORCINE) 5,000 UNIT/ML 1 ML SYRINGE SUBCUT SCH ×2 (05:57→13:31)
[2018-01-22] MEDS: PREGABALIN 75 MG CAPSULE NG SCH ×2 (05:59→17:16)
[2018-01-22] MEDS: LANSOPRAZOLE 30 MG TAB.RAP.DR NG SCH (06:01)
[2018-01-22] MEDS: OXYCODONE HCL IR 5 MG TABLET PO PRN ×2 (06:01→13:32)
--- NOTE | 2018-01-22 06:27 | PDOC PROGRESS REPORT ---
Subjective Progress Note for:: 01/22/18 Reason For Visit: FRACTURE OF RIGHT FIBULA 77-year-old female postop day 4 from an open reduction internal fixation of her right bimalleolar ankle fracture. Patient's had a relatively uncomplicated postoperative course but has made little progress with physical therapy. Physical Exam Vital Signs: Temp Pulse Resp BP Pulse Ox 37.5 C 100 20 113/68 90 L 01/21/18 23:01 01/21/18 23:01 01/21/18 23:01 01/21/18 23:01 01/21/18 23:01 Intake & Output 01/20/18 01/21/18 01/22/18 06:59 06:59 06:59 Intake Total 658 837 537 Output Total 700 Balance -42 837 537 Weight 130.4 kg 131.3 kg 134.6 kg General appearance: PRESENT: no acute distress Head exam: PRESENT: normocephalic Respiratory exam: PRESENT: unlabored Cardiovascular exam: PRESENT: RRR Vascular exam: PRESENT: normal capillary refill GI/Abdominal exam: PRESENT: soft Rectal exam: PRESENT: deferred Extremities exam: PRESENT: other - Right lower extremity splint intact. Distal neurovascular examination of the toes is intact. Neurological exam: PRESENT: alert, awake, oriented to person, oriented to place , oriented to time, oriented to situation. ABSENT: motor sensory deficit Psychiatric exam: PRESENT: appropriate affect, normal mood. ABSENT: homicidal ideation, suicidal ideation Skin exam: PRESENT: dry, intact, warm. ABSENT: cyanosis, rash Results Laboratory Results: 01/19/18 05:30 01/19/18 05:30 01/09/18 01/09/18 01/09/18 15:28 15:28 15:28 Creatine Kinase 179 H CK-MB (CK-2) 1.06 Troponin I < 0.012 NT-Pro-B Natriuret Pep 102 01/09/18 01/09/18 01/10/18 23:00 23:00 04:53 Creatine Kinase 221 H 190 H CK-MB (CK-2) 1.01 Troponin I < 0.012 NT-Pro-B Natriuret Pep 01/10/18 04:53 Creatine Kinase CK-MB (CK-2) 0.76 Troponin I < 0.012 NT-Pro-B Natriuret Pep Impressions: Foot X-Ray 01/09/18 13:21 IMPRESSION: No acute fracture right foot Hip/Pelvis X-Ray 01/09/18 14:10 IMPRESSION: Nothing acute. No acute fracture or dislocation right hip. Lumbar Spine X-Ray 01/09/18 14:10 IMPRESSION: SPONDYLOSIS WITHOUT FRACTURE. Chest X-Ray 01/13/18 00:00 IMPRESSION: NO ACUTE RADIOGRAPHIC FINDING IN THE CHEST. Abdomen/Pelvis CT 01/14/18 00:00 IMPRESSION: 1. Findings compatible with small bowel obstruction with possible transition point in the mid abdomen. 2. Cholelithiasis. 2. Diverticulosis without evidence of acute diverticulitis. This exam was performed according to our departmental dose-optimization program, which includes automated exposure control, adjustment of the mA and/or kV according to patient size and/or use of iterative reconstruction technique. Guidance Fluoroscopy 01/15/18 00:00 IMPRESSION: SUCCESSFUL PLACEMENT OF A 5 FR DUAL LUMEN 41 CM PICC IN THE LEFT BASILIC VEIN. Interventional Vascular Procedure 01/15/18 00:00 IMPRESSION: SUCCESSFUL PLACEMENT OF A 5 FR DUAL LUMEN 41 CM PICC IN THE LEFT BASILIC VEIN. PICC Line Insertion 01/15/18 00:00 IMPRESSION: SUCCESSFUL PLACEMENT OF A 5 FR DUAL LUMEN 41 CM PICC IN THE LEFT BASILIC VEIN. KUB X-Ray 01/16/18 00:00 IMPRESSION: There may be a partial small bowel obstruction. Upper GI and Small Bowel X-Ray 01/17/18 00:00 IMPRESSION: No small bowel obstruction Abdomen X-Ray 01/17/18 06:00 IMPRESSION: Few air-filled distended small bowel loops in the mid abdomen, similar compared to previous studies. Ankle X-Ray 01/18/18 00:00 IMPRESSION: Satisfactory postoperative films Fluoroscopy 01/18/18 00:00 IMPRESSION: Intra procedural imaging and fluoro Status: Imported from PACS Assessment & Plan - Diagnosis (1) Bimalleolar fracture of right ankle Qualifiers: Encounter type: initial encounter Fracture type: closed Qualified Code(s) : S82.841A - Displaced bimalleolar fracture of right lower leg, initial encounter for closed fracture Is this a current diagnosis for this admission?: Yes Plan: Patient be mobilized with physical therapy. Relatively limited progress so far. Anticipate [facility] facility placement once medical comorbidities have been better managed
[2018-01-22 06:40] LABS: INTERNATIONAL RATION (INR) 1.47; PROTHROMBIN TIME 18.6 SEC (11.4-15.4)
[2018-01-22] MEDS: AMLODIPINE BESYLATE 10 MG TABLET NG SCH (11:13)
[2018-01-22] MEDS: DOCUSATE SODIUM 100 MG CAPSULE PO SCH ×2 (11:14→17:16)
[2018-01-22] MEDS: ACETAMINOPHEN SOLN 325 MG/10.15 ML UDCUP NG PRN (11:16)
[2018-01-22] MEDS: PRAMIPEXOLE DI-HCL 0.25 MG TABLET NG SCH (11:17)
[2018-01-22] MEDS: POLYETHYLENE GLYCOL 3350 POWDER 17 GM/1 PACKET NG SCH (11:17)
[2018-01-22] MEDS: TOLTERODINE TARTRATE 1 MG TABLET NG SCH ×2 (11:17→21:16)
--- NOTE | 2018-01-22 11:26 | RADIOLOGY REPORT (SQ) ---
EXAM DESCRIPTION: VENOUS UNILATERAL UPPER COMPLETED DATE/TIME: 01/22/2018 11:05 am REASON FOR STUDY: LEFT UPPER EXTREMITY PAIN SWELLING WITH PICC LINE COMPARISON: None. TECHNIQUE: Dynamic and static jeff scale and color images acquired of the left arm venous system. Se lected spectral images acquired with additional compression and augmentation maneuvers. The contralat eral subclavian vein and internal jugular vein were also imaged. Images stored on PACS. LIMITATIONS: None. FINDINGS: LEFT INTERNAL JUGULAR VEIN: Normal phasicity, compression, augmentation. No visualized echogenic material on jeff scale. No defects on color images. Comparison opposite side normal. SUBCLAVIAN VEIN: Distal left subclavian vein near the axillary vein is partially occluded with hypoec hoic clot. PICC line identified. AXILLARY VEIN: Left axillary vein is partially occluded with hypoechoic acute clot. PICC line identi fied BRACHIAL VEIN: Normal compression, augmentation. No visualized echogenic material on jeff scale. No defects on color images BASILIC VEIN: Left basilic vein is partially occluded with hypoechoic acute clot. PICC line identifi ed CEPHALIC VEIN: Normal compression, augmentation. No visualized echogenic material on jeff scale. No d efects on color images. OTHER: No other significant finding. IMPRESSION: Acute hypoechoic partially occlusive clot in the left basilic, axillary and subclavian v ein adjacent to a PICC line. TECHNICAL DOCUMENTATION: JOB ID: [id number] [employer]- All Rights Reserved Reading location - IP/workstation name: [email or web address]
[2018-01-22] MEDS: NORMAL SALINE 10 ML SDV (SCHEDULED) IV SCH ×2 (12:12→21:16)
[2018-01-22] MEDS: METFORMIN HCL 500 MG TABLET NG SCH (17:16)
--- NOTE | 2018-01-22 19:12 | PDOC PROGRESS REPORT ---
Subjective Progress Note for:: 01/22/18 Subjective:: She was seen by the bedside, cannot bear weight on the right ankle, she developed DVT at the site of the PICC line on the left upper extremities, INR subtherapeutic on Coumadin, start Lovenox 1 mg/kg body weight subcu every 12 Reason For Visit: FRACTURE OF RIGHT FIBULA Physical Exam Vital Signs: Temp Pulse Resp BP Pulse Ox 97.8 F 94 20 108/58 L 96 01/22/18 15:47 01/22/18 15:47 01/22/18 15:47 01/22/18 15:47 01/22/18 15:47 Intake & Output 01/21/18 01/22/18 01/23/18 06:59 06:59 06:59 Intake Total 638 803 3253 Balance 684 668 0643 Weight 131.3 kg 134.6 kg General appearance: PRESENT: no acute distress Eye exam: PRESENT: PERRLA Respiratory exam: PRESENT: clear to auscultation aliya Cardiovascular exam: PRESENT: +S1, +S2 GI/Abdominal exam: PRESENT: soft Neurological exam: PRESENT: alert Results Laboratory Results: 01/19/18 05:30 01/19/18 05:30 01/09/18 01/09/18 01/09/18 15:28 15:28 15:28 Creatine Kinase 179 H CK-MB (CK-2) 1.06 Troponin I < 0.012 NT-Pro-B Natriuret Pep 102 01/09/18 01/09/18 01/10/18 23:00 23:00 04:53 Creatine Kinase 221 H 190 H CK-MB (CK-2) 1.01 Troponin I < 0.012 NT-Pro-B Natriuret Pep 01/10/18 04:53 Creatine Kinase CK-MB (CK-2) 0.76 Troponin I < 0.012 NT-Pro-B Natriuret Pep Impressions: Foot X-Ray 01/09/18 13:21 IMPRESSION: No acute fracture right foot Hip/Pelvis X-Ray 01/09/18 14:10 IMPRESSION: Nothing acute. No acute fracture or dislocation right hip. Lumbar Spine X-Ray 01/09/18 14:10 IMPRESSION: SPONDYLOSIS WITHOUT FRACTURE. Chest X-Ray 01/13/18 00:00 IMPRESSION: NO ACUTE RADIOGRAPHIC FINDING IN THE CHEST. Abdomen/Pelvis CT 01/14/18 00:00 IMPRESSION: 1. Findings compatible with small bowel obstruction with possible transition point in the mid abdomen. 2. Cholelithiasis. 2. Diverticulosis without evidence of acute diverticulitis. This exam was performed according to our departmental dose-optimization program, which includes automated exposure control, adjustment of the mA and/or kV according to patient size and/or use of iterative reconstruction technique. Guidance Fluoroscopy 01/15/18 00:00 IMPRESSION: SUCCESSFUL PLACEMENT OF A 5 FR DUAL LUMEN 41 CM PICC IN THE LEFT BASILIC VEIN. Interventional Vascular Procedure 01/15/18 00:00 IMPRESSION: SUCCESSFUL PLACEMENT OF A 5 FR DUAL LUMEN 41 CM PICC IN THE LEFT BASILIC VEIN. PICC Line Insertion 01/15/18 00:00 IMPRESSION: SUCCESSFUL PLACEMENT OF A 5 FR DUAL LUMEN 41 CM PICC IN THE LEFT BASILIC VEIN. KUB X-Ray 01/16/18 00:00 IMPRESSION: There may be a partial small bowel obstruction. Upper GI and Small Bowel X-Ray 01/17/18 00:00 IMPRESSION: No small bowel obstruction Abdomen X-Ray 01/17/18 06:00 IMPRESSION: Few air-filled distended small bowel loops in the mid abdomen, similar compared to previous studies. Ankle X-Ray 01/18/18 00:00 IMPRESSION: Satisfactory postoperative films Fluoroscopy 01/18/18 00:00 IMPRESSION: Intra procedural imaging and fluoro Venous Doppler Study 01/22/18 00:00 IMPRESSION: Acute hypoechoic partially occlusive clot in the left basilic, axillary and subclavian vein adjacent to a PICC line. 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: Diabetes mellitus mcc insulin use: with termite technician use Diabetes mellitus complication status: with neurologic complications Diabetes mellitus complication detail: with polyneuropathy Qualified Code(s): E11.42 - Type 2 diabetes mellitus with diabetic polyneuropathy; Z79.4 - custodial (current) use of insulin; Z79.4 - terminal supervisor (current) use of insulin; Z79.4 - terminal supervisor ( current) use of insulin; Z79.4 - custodial (current) use of insulin Is this a current diagnosis for this admission?: Yes (3) Diabetes mellitus type II, controlled Qualifiers: Diabetes mellitus termite technician insulin use: without termite technician use Diabetes mellitus complication status: without complication Qualified Code(s): E11.9 - Type 2 diabetes mellitus without complications Is this a current diagnosis for this admission?: Yes (4) Deep vein thrombosis of left upper extremity Qualifiers: Affected thrombotic vein of extremity: unspecified vein of extremity Chronicity: acute Qualified Code(s): I82.622 - Acute embolism and thrombosis of deep veins of left upper extremity Is this a current diagnosis for this admission?: Yes Plan: Start Lovenox
[2018-01-22] MEDS: ENOXAPARIN SODIUM INJ 150 MG/1 ML DISP.SYRIN SUBCUT SCH (21:15)
[2018-01-22] MEDS: ATORVASTATIN CALCIUM 10 MG TABLET NG SCH (21:15)
[2018-01-23 05:21] LABS: PROTHROMBIN TIME 20.8 SEC (11.4-15.4)
[2018-01-23] MEDS: OXYCODONE HCL IR 5 MG TABLET PO PRN ×2 (05:55→18:05)
[2018-01-23] MEDS: LANSOPRAZOLE 30 MG TAB.RAP.DR NG SCH (05:55)
[2018-01-23] MEDS: PREGABALIN 75 MG CAPSULE NG SCH (05:55)
--- NOTE | 2018-01-23 06:15 | PDOC PROGRESS REPORT ---
Subjective Progress Note for:: 01/23/18 Reason For Visit: FRACTURE OF RIGHT FIBULA 77-year-old white female status post open reduction internal fixation of a bimalleolar ankle fracture. Postoperative complication of a DVT of the left upper extremity patient now on Lovenox and Coumadin Physical Exam Vital Signs: Temp Pulse Resp BP Pulse Ox 36.8 C 98 19 114/64 90 L 01/22/18 23:30 01/22/18 23:30 01/22/18 23:30 01/22/18 23:30 01/22/18 23:30 Intake & Output 01/21/18 01/22/18 01/23/18 06:59 06:59 06:59 Intake Total 128 982 6298 Balance 953 597 1018 Weight 131.3 kg 134.6 kg 134.5 kg General appearance: PRESENT: no acute distress, mild distress, obese Head exam: PRESENT: normocephalic Respiratory exam: PRESENT: unlabored Cardiovascular exam: PRESENT: RRR Pulses: PRESENT: +1 pedal pulses bilateral Vascular exam: PRESENT: normal capillary refill GI/Abdominal exam: PRESENT: soft Rectal exam: PRESENT: deferred Extremities exam: PRESENT: other - Right lower extremity splint clean dry and intact Neurological exam: PRESENT: alert, awake, oriented to person, oriented to place , oriented to time, oriented to situation. ABSENT: motor sensory deficit Psychiatric exam: PRESENT: appropriate affect, normal mood. ABSENT: homicidal ideation, suicidal ideation Skin exam: PRESENT: dry, intact, warm. ABSENT: cyanosis, rash Results Laboratory Results: 01/19/18 05:30 01/19/18 05:30 01/09/18 01/09/18 01/09/18 15:28 15:28 15:28 Creatine Kinase 179 H CK-MB (CK-2) 1.06 Troponin I < 0.012 NT-Pro-B Natriuret Pep 102 01/09/18 01/09/18 01/10/18 23:00 23:00 04:53 Creatine Kinase 221 H 190 H CK-MB (CK-2) 1.01 Troponin I < 0.012 NT-Pro-B Natriuret Pep 01/10/18 04:53 Creatine Kinase CK-MB (CK-2) 0.76 Troponin I < 0.012 NT-Pro-B Natriuret Pep Impressions: Foot X-Ray 01/09/18 13:21 IMPRESSION: No acute fracture right foot Hip/Pelvis X-Ray 01/09/18 14:10 IMPRESSION: Nothing acute. No acute fracture or dislocation right hip. Lumbar Spine X-Ray 01/09/18 14:10 IMPRESSION: SPONDYLOSIS WITHOUT FRACTURE. Chest X-Ray 01/13/18 00:00 IMPRESSION: NO ACUTE RADIOGRAPHIC FINDING IN THE CHEST. Abdomen/Pelvis CT 01/14/18 00:00 IMPRESSION: 1. Findings compatible with small bowel obstruction with possible transition point in the mid abdomen. 2. Cholelithiasis. 2. Diverticulosis without evidence of acute diverticulitis. This exam was performed according to our departmental dose-optimization program, which includes automated exposure control, adjustment of the mA and/or kV according to patient size and/or use of iterative reconstruction technique. Guidance Fluoroscopy 01/15/18 00:00 IMPRESSION: SUCCESSFUL PLACEMENT OF A 5 FR DUAL LUMEN 41 CM PICC IN THE LEFT BASILIC VEIN. Interventional Vascular Procedure 01/15/18 00:00 IMPRESSION: SUCCESSFUL PLACEMENT OF A 5 FR DUAL LUMEN 41 CM PICC IN THE LEFT BASILIC VEIN. PICC Line Insertion 01/15/18 00:00 IMPRESSION: SUCCESSFUL PLACEMENT OF A 5 FR DUAL LUMEN 41 CM PICC IN THE LEFT BASILIC VEIN. KUB X-Ray 01/16/18 00:00 IMPRESSION: There may be a partial small bowel obstruction. Upper GI and Small Bowel X-Ray 01/17/18 00:00 IMPRESSION: No small bowel obstruction Abdomen X-Ray 01/17/18 06:00 IMPRESSION: Few air-filled distended small bowel loops in the mid abdomen, similar compared to previous studies. Ankle X-Ray 01/18/18 00:00 IMPRESSION: Satisfactory postoperative films Fluoroscopy 01/18/18 00:00 IMPRESSION: Intra procedural imaging and fluoro Venous Doppler Study 01/22/18 00:00 IMPRESSION: Acute hypoechoic partially occlusive clot in the left basilic, axillary and subclavian vein adjacent to a PICC line. Status: Imported from PACS Assessment & Plan - Diagnosis (1) Bimalleolar fracture of right ankle Qualifiers: Encounter type: initial encounter Fracture type: closed Qualified Code(s) : S82.841A - Displaced bimalleolar fracture of right lower leg, initial encounter for closed fracture Is this a current diagnosis for this admission?: Yes Plan: Patient making limited progress with physical therapy with mobilization - Time Time Spent with patient: 15-24 minutes Anticipated discharge: SNF Within: Other
[2018-01-23] MEDS: DOCUSATE SODIUM 100 MG CAPSULE PO SCH ×2 (09:27→18:01)
[2018-01-23] MEDS: TOLTERODINE TARTRATE 1 MG TABLET NG SCH (09:27)
[2018-01-23] MEDS: AMLODIPINE BESYLATE 10 MG TABLET NG SCH (09:27)
[2018-01-23] MEDS: PRAMIPEXOLE DI-HCL 0.25 MG TABLET NG SCH (09:28)
[2018-01-23] MEDS: POLYETHYLENE GLYCOL 3350 POWDER 17 GM/1 PACKET NG SCH (09:28)
[2018-01-23] MEDS: ENOXAPARIN SODIUM INJ 150 MG/1 ML DISP.SYRIN SUBCUT SCH ×2 (09:29→21:43)
[2018-01-23] MEDS: ACETAMINOPHEN SOLN 325 MG/10.15 ML UDCUP NG PRN (09:33)
[2018-01-23] MEDS: NORMAL SALINE 10 ML SDV (SCHEDULED) IV SCH ×2 (10:45→21:43)
[2018-01-23] MEDS ORDERED: ACETAMINOPHEN 325 MG TABLET PO PRN (13:00)
[2018-01-23 15:55] LABS: ABSOLUTE BASOPHILS # (AUTO) 0.1 10^3/uL (0.0-0.2); ABSOLUTE EOSINOPHILS # (AUTO) 0.4 10^3/uL (0.0-0.6); ABSOLUTE LYMPHOCYTES (AUTO) 1.9 10^3/uL (0.5-4.7); ABSOLUTE MONOCYTES (AUTO) 1.5 10^3/uL (0.1-1.4); ABSOLUTE NEUT (AUTO) 9.5 10^3/uL (1.7-8.2); BASOPHILS % (AUTO) 0.8 % (0-2); EOSINOPHILS % (AUTO) 3.1 % (0-6); HEMATOCRIT 31.8 % (36.0-47.0); HEMOGLOBIN 10.4 g/dL (12.0-15.5); LYMPHOCYTES % (AUTO) 13.9 % (13-45); MEAN CORPUSCULAR HEMOGLOBIN 28.7 pg (27.0-33.4); MEAN CORPUSCULAR HGB CONC 32.6 g/dL (32.0-36.0); MEAN CORPUSCULAR VOLUME 88 fl (80-97); MONOCYTES % (AUTO) 11.1 % (3-13); PLATELET COUNT 231 10^3/uL (150-450); RED BLOOD COUNT 3.61 10^6/uL (3.72-5.28); RED CELL DISTRIBUTION WIDTH 16.6 % (11.5-14.0); SEGMENTED NEUTROPHILS % (AUTO) 71.1 % (42-78); TOTAL CELLS COUNTED % (AUTO) 100 %; WHITE BLOOD COUNT 13.4 10^3/uL (4.0-10.5)
--- NOTE | 2018-01-23 16:38 | PDOC PROGRESS REPORT ---
Subjective Progress Note for:: 01/23/18 Subjective:: Patient was seen by the bedside she has left upper extremity DVT presently on Lovenox and Coumadin, once INR is therapeutic the Lovenox will be discontinued she will continue Coumadin and hopefully discharge home Reason For Visit: FRACTURE OF RIGHT FIBULA Physical Exam Vital Signs: Temp Pulse Resp BP Pulse Ox 98.7 F 97 17 113/60 93 01/23/18 16:00 01/23/18 16:00 01/23/18 16:00 01/23/18 16:00 01/23/18 16:00 Intake & Output 01/22/18 01/23/18 01/24/18 06:59 06:59 06:59 Intake Total 887 2130 Balance 887 2130 Weight 134.6 kg 134.5 kg General appearance: PRESENT: no acute distress Eye exam: PRESENT: PERRLA Respiratory exam: PRESENT: clear to auscultation aliya Cardiovascular exam: PRESENT: +S1, +S2 Results Laboratory Results: 01/23/18 15:34 01/23/18 15:34 WBC 13.4 H RBC 3.61 L Hgb 10.4 L Hct 31.8 L MCV 88 MCH 28.7 MCHC 32.6 RDW 16.6 H Plt Count 231 Seg Neutrophils % 71.1 Lymphocytes % 13.9 Monocytes % 11.1 Eosinophils % 3.1 Basophils % 0.8 Absolute Neutrophils 9.5 H Absolute Lymphocytes 1.9 Absolute Monocytes 1.5 H Absolute Eosinophils 0.4 Absolute Basophils 0.1 01/09/18 01/09/18 01/09/18 15:28 15:28 15:28 Creatine Kinase 179 H CK-MB (CK-2) 1.06 Troponin I < 0.012 NT-Pro-B Natriuret Pep 102 01/09/18 01/09/18 01/10/18 23:00 23:00 04:53 Creatine Kinase 221 H 190 H CK-MB (CK-2) 1.01 Troponin I < 0.012 NT-Pro-B Natriuret Pep 01/10/18 04:53 Creatine Kinase CK-MB (CK-2) 0.76 Troponin I < 0.012 NT-Pro-B Natriuret Pep Impressions: Foot X-Ray 01/09/18 13:21 IMPRESSION: No acute fracture right foot Hip/Pelvis X-Ray 01/09/18 14:10 IMPRESSION: Nothing acute. No acute fracture or dislocation right hip. Lumbar Spine X-Ray 01/09/18 14:10 IMPRESSION: SPONDYLOSIS WITHOUT FRACTURE. Chest X-Ray 01/13/18 00:00 IMPRESSION: NO ACUTE RADIOGRAPHIC FINDING IN THE CHEST. Abdomen/Pelvis CT 01/14/18 00:00 IMPRESSION: 1. Findings compatible with small bowel obstruction with possible transition point in the mid abdomen. 2. Cholelithiasis. 2. Diverticulosis without evidence of acute diverticulitis. This exam was performed according to our departmental dose-optimization program, which includes automated exposure control, adjustment of the mA and/or kV according to patient size and/or use of iterative reconstruction technique. Guidance Fluoroscopy 01/15/18 00:00 IMPRESSION: SUCCESSFUL PLACEMENT OF A 5 FR DUAL LUMEN 41 CM PICC IN THE LEFT BASILIC VEIN. Interventional Vascular Procedure 01/15/18 00:00 IMPRESSION: SUCCESSFUL PLACEMENT OF A 5 FR DUAL LUMEN 41 CM PICC IN THE LEFT BASILIC VEIN. PICC Line Insertion 01/15/18 00:00 IMPRESSION: SUCCESSFUL PLACEMENT OF A 5 FR DUAL LUMEN 41 CM PICC IN THE LEFT BASILIC VEIN. KUB X-Ray 01/16/18 00:00 IMPRESSION: There may be a partial small bowel obstruction. Upper GI and Small Bowel X-Ray 01/17/18 00:00 IMPRESSION: No small bowel obstruction Abdomen X-Ray 01/17/18 06:00 IMPRESSION: Few air-filled distended small bowel loops in the mid abdomen, similar compared to previous studies. Ankle X-Ray 01/18/18 00:00 IMPRESSION: Satisfactory postoperative films Fluoroscopy 01/18/18 00:00 IMPRESSION: Intra procedural imaging and fluoro Venous Doppler Study 01/22/18 00:00 IMPRESSION: Acute hypoechoic partially occlusive clot in the left basilic, axillary and subclavian vein adjacent to a PICC line. 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: Diabetes mellitus skilled nursing insulin use: with computer terminal operator use Diabetes mellitus complication status: with neurologic complications Diabetes mellitus complication detail: with polyneuropathy Qualified Code(s): E11.42 - Type 2 diabetes mellitus with diabetic polyneuropathy; Z79.4 - skilled nursing (current) use of insulin; Z79.4 - watermelon inspector (current) use of insulin; Z79.4 - watermelon inspector ( current) use of insulin; Z79.4 - skilled nursing (current) use of insulin Is this a current diagnosis for this admission?: Yes (3) Diabetes mellitus type II, controlled Qualifiers: Diabetes mellitus skilled nursing insulin use: without computer terminal operator use Diabetes mellitus complication status: without complication Qualified Code(s): E11.9 - Type 2 diabetes mellitus without complications Is this a current diagnosis for this admission?: Yes (4) Deep vein thrombosis of left upper extremity Qualifiers: Affected thrombotic vein of extremity: unspecified vein of extremity Chronicity: acute Qualified Code(s): I82.622 - Acute embolism and thrombosis of deep veins of left upper extremity Is this a current diagnosis for this admission?: Yes
[2018-01-23 16:55] LABS: ALANINE AMINOTRANSFERASE 19 U/L (9-52); ALBUMIN 2.8 g/dL (3.5-5.0); ALKALINE PHOSPHATASE 72 U/L (38-126); ANION GAP 12 (5-19); ASPARTATE AMINO TRANSFERASE 18 U/L (14-36); BILIRUBIN,DIRECT 0.4 mg/dL (0.0-0.4); BILIRUBIN,TOTAL 0.4 mg/dL (0.2-1.3); BLOOD UREA NITROGEN 18 mg/dL (7-20); CALCIUM 8.5 mg/dL (8.4-10.2); CARBON DIOXIDE 28 mmol/L (22-30); CHLORIDE 102 mmol/L (98-107); GLUCOSE 155 mg/dL (75-110); POTASSIUM 4.3 mmol/L (3.6-5.0); SODIUM 142.1 mmol/L (137-145); TOTAL PROTEIN 6.6 g/dL (6.3-8.2)
[2018-01-23] MEDS: METFORMIN HCL 500 MG TABLET PO SCH (18:00)
[2018-01-23] MEDS: PREGABALIN 75 MG CAPSULE PO SCH (18:01)
[2018-01-23] MEDS: ATORVASTATIN CALCIUM 10 MG TABLET PO SCH (21:43)
[2018-01-23] MEDS: TOLTERODINE TARTRATE 1 MG TABLET PO SCH (21:43)
[2018-01-23] MEDS: WARFARIN SODIUM 4 MG TABLET PO SCH (21:43)
[2018-01-24] MEDS: OXYCODONE HCL IR 5 MG TABLET PO PRN ×2 (05:40→17:15)
[2018-01-24] MEDS: PREGABALIN 75 MG CAPSULE PO SCH ×2 (05:41→17:18)
[2018-01-24] MEDS: LANSOPRAZOLE 30 MG TAB.RAP.DR PO SCH (05:41)
--- NOTE | 2018-01-24 06:30 | PDOC PROGRESS REPORT ---
Subjective Progress Note for:: 01/24/18 Reason For Visit: FRACTURE OF RIGHT FIBULA 77-year-old female status post ORIF of right bimalleolar ankle fracture with improvement in functional status with physical therapy yesterday. Physical Exam Vital Signs: Temp Pulse Resp BP Pulse Ox 37.5 C 105 H 18 108/63 91 L 01/23/18 23:41 01/23/18 23:41 01/23/18 23:41 01/23/18 23:41 01/23/18 23:41 Intake & Output 01/22/18 01/23/18 01/24/18 06:59 06:59 06:59 Intake Total 887 2130 900 Balance 887 2130 900 Weight 134.6 kg 134.5 kg 134 kg General appearance: PRESENT: no acute distress Pulses: PRESENT: +1 pedal pulses bilateral Vascular exam: PRESENT: normal capillary refill GI/Abdominal exam: PRESENT: soft Rectal exam: PRESENT: deferred Extremities exam: PRESENT: other - Patient to continue with physical therapy on a touchdown weightbearing restriction. Anticipate custodial facility placement? Neurological exam: PRESENT: alert, awake, oriented to person, oriented to place , oriented to time, oriented to situation. ABSENT: motor sensory deficit Psychiatric exam: PRESENT: appropriate affect, normal mood. ABSENT: homicidal ideation, suicidal ideation Skin exam: PRESENT: dry, intact, warm. ABSENT: cyanosis, rash Results Laboratory Results: 01/23/18 15:34 01/23/18 15:34 01/23/18 01/23/18 15:34 15:34 WBC 13.4 H RBC 3.61 L Hgb 10.4 L Hct 31.8 L MCV 88 MCH 28.7 MCHC 32.6 RDW 16.6 H Plt Count 231 Seg Neutrophils % 71.1 Lymphocytes % 13.9 Monocytes % 11.1 Eosinophils % 3.1 Basophils % 0.8 Absolute Neutrophils 9.5 H Absolute Lymphocytes 1.9 Absolute Monocytes 1.5 H Absolute Eosinophils 0.4 Absolute Basophils 0.1 Sodium 142.1 Potassium 4.3 Chloride 102 Carbon Dioxide 28 Anion Gap 12 BUN 18 Creatinine 0.95 Est GFR ( Amer) > 60 Est GFR (Non-Af Amer) 57 L Glucose 155 H Calcium 8.5 Total Bilirubin 0.4 AST 18 ALT 19 Alkaline Phosphatase 72 Total Protein 6.6 Albumin 2.8 L 01/09/18 01/09/18 01/09/18 15:28 15:28 15:28 Creatine Kinase 179 H CK-MB (CK-2) 1.06 Troponin I < 0.012 NT-Pro-B Natriuret Pep 102 01/09/18 01/09/18 01/10/18 23:00 23:00 04:53 Creatine Kinase 221 H 190 H CK-MB (CK-2) 1.01 Troponin I < 0.012 NT-Pro-B Natriuret Pep 01/10/18 04:53 Creatine Kinase CK-MB (CK-2) 0.76 Troponin I < 0.012 NT-Pro-B Natriuret Pep Impressions: Foot X-Ray 01/09/18 13:21 IMPRESSION: No acute fracture right foot Hip/Pelvis X-Ray 01/09/18 14:10 IMPRESSION: Nothing acute. No acute fracture or dislocation right hip. Lumbar Spine X-Ray 01/09/18 14:10 IMPRESSION: SPONDYLOSIS WITHOUT FRACTURE. Chest X-Ray 01/13/18 00:00 IMPRESSION: NO ACUTE RADIOGRAPHIC FINDING IN THE CHEST. Abdomen/Pelvis CT 01/14/18 00:00 IMPRESSION: 1. Findings compatible with small bowel obstruction with possible transition point in the mid abdomen. 2. Cholelithiasis. 2. Diverticulosis without evidence of acute diverticulitis. This exam was performed according to our departmental dose-optimization program, which includes automated exposure control, adjustment of the mA and/or kV according to patient size and/or use of iterative reconstruction technique. Guidance Fluoroscopy 01/15/18 00:00 IMPRESSION: SUCCESSFUL PLACEMENT OF A 5 FR DUAL LUMEN 41 CM PICC IN THE LEFT BASILIC VEIN. Interventional Vascular Procedure 01/15/18 00:00 IMPRESSION: SUCCESSFUL PLACEMENT OF A 5 FR DUAL LUMEN 41 CM PICC IN THE LEFT BASILIC VEIN. PICC Line Insertion 01/15/18 00:00 IMPRESSION: SUCCESSFUL PLACEMENT OF A 5 FR DUAL LUMEN 41 CM PICC IN THE LEFT BASILIC VEIN. KUB X-Ray 01/16/18 00:00 IMPRESSION: There may be a partial small bowel obstruction. Upper GI and Small Bowel X-Ray 01/17/18 00:00 IMPRESSION: No small bowel obstruction Abdomen X-Ray 01/17/18 06:00 IMPRESSION: Few air-filled distended small bowel loops in the mid abdomen, similar compared to previous studies. Ankle X-Ray 01/18/18 00:00 IMPRESSION: Satisfactory postoperative films Fluoroscopy 01/18/18 00:00 IMPRESSION: Intra procedural imaging and fluoro Venous Doppler Study 01/22/18 00:00 IMPRESSION: Acute hypoechoic partially occlusive clot in the left basilic, axillary and subclavian vein adjacent to a PICC line. Status: Imported from PACS Assessment & Plan - Diagnosis (1) Bimalleolar fracture of right ankle Qualifiers: Encounter type: initial encounter Fracture type: closed Qualified Code(s) : S82.841A - Displaced bimalleolar fracture of right lower leg, initial encounter for closed fracture Is this a current diagnosis for this admission?: Yes Plan: Continue with physical therapy on a touchdown weightbearing restriction
[2018-01-24] MEDS: NORMAL SALINE 10 ML SDV (AFTER EACH USE) IV PRN (06:40)
[2018-01-24 07:08] LABS: INTERNATIONAL RATION (INR) 1.73; PROTHROMBIN TIME 21.1 SEC (11.4-15.4)
[2018-01-24] MEDS: ENOXAPARIN SODIUM INJ 150 MG/1 ML DISP.SYRIN SUBCUT SCH ×2 (09:58→21:43)
[2018-01-24] MEDS: NORMAL SALINE 10 ML SDV (SCHEDULED) IV SCH ×2 (09:59→21:45)
[2018-01-24] MEDS: POLYETHYLENE GLYCOL 3350 POWDER 17 GM/1 PACKET PO SCH (09:59)
[2018-01-24] MEDS: TOLTERODINE TARTRATE 1 MG TABLET PO SCH ×2 (10:00→21:42)
[2018-01-24] MEDS: PRAMIPEXOLE DI-HCL 0.25 MG TABLET PO SCH (10:00)
[2018-01-24] MEDS: AMLODIPINE BESYLATE 10 MG TABLET PO SCH (10:01)
[2018-01-24] MEDS: DOCUSATE SODIUM 100 MG CAPSULE PO SCH ×2 (10:01→17:17)
[2018-01-24] MEDS: METFORMIN HCL 500 MG TABLET PO SCH (17:18)
--- NOTE | 2018-01-24 17:53 | PDOC PROGRESS REPORT ---
Subjective Progress Note for:: 01/24/18 Subjective:: Patient was seen by the bedside she has left upper extremity DVT presently on Lovenox and Coumadin, once INR is therapeutic the Lovenox will be discontinued she will continue Coumadin and hopefully discharge home Reason For Visit: FRACTURE OF RIGHT FIBULA Physical Exam Vital Signs: Temp Pulse Resp BP Pulse Ox 98.4 F 100 19 108/65 92 01/24/18 15:57 01/24/18 15:57 01/24/18 15:57 01/24/18 15:57 01/24/18 15:57 Intake & Output 01/23/18 01/24/18 01/25/18 06:59 06:59 06:59 Intake Total 2130 900 1429 Balance 2130 900 1429 Weight 134.5 kg 134 kg General appearance: PRESENT: no acute distress, well-developed, well-nourished Head exam: PRESENT: atraumatic, normocephalic Eye exam: PRESENT: conjunctiva pink, EOMI, PERRLA Ear exam: PRESENT: normal external ear exam Mouth exam: PRESENT: moist, tongue midline Neck exam: PRESENT: full ROM Respiratory exam: PRESENT: clear to auscultation aliya Cardiovascular exam: PRESENT: RRR, +S1, +S2 Vascular exam: PRESENT: normal capillary refill GI/Abdominal exam: PRESENT: normal bowel sounds, soft Rectal exam: PRESENT: deferred Neurological exam: PRESENT: alert, awake, oriented to person, oriented to place , oriented to time, oriented to situation, CN II-XII grossly intact Psychiatric exam: PRESENT: appropriate affect, normal mood Skin exam: PRESENT: dry, intact, warm Results Laboratory Results: 01/23/18 15:34 01/23/18 15:34 01/09/18 01/09/18 01/09/18 15:28 15:28 15:28 Creatine Kinase 179 H CK-MB (CK-2) 1.06 Troponin I < 0.012 NT-Pro-B Natriuret Pep 102 01/09/18 01/09/18 01/10/18 23:00 23:00 04:53 Creatine Kinase 221 H 190 H CK-MB (CK-2) 1.01 Troponin I < 0.012 NT-Pro-B Natriuret Pep 01/10/18 04:53 Creatine Kinase CK-MB (CK-2) 0.76 Troponin I < 0.012 NT-Pro-B Natriuret Pep Impressions: Foot X-Ray 01/09/18 13:21 IMPRESSION: No acute fracture right foot Hip/Pelvis X-Ray 01/09/18 14:10 IMPRESSION: Nothing acute. No acute fracture or dislocation right hip. Lumbar Spine X-Ray 01/09/18 14:10 IMPRESSION: SPONDYLOSIS WITHOUT FRACTURE. Chest X-Ray 01/13/18 00:00 IMPRESSION: NO ACUTE RADIOGRAPHIC FINDING IN THE CHEST. Abdomen/Pelvis CT 01/14/18 00:00 IMPRESSION: 1. Findings compatible with small bowel obstruction with possible transition point in the mid abdomen. 2. Cholelithiasis. 2. Diverticulosis without evidence of acute diverticulitis. This exam was performed according to our departmental dose-optimization program, which includes automated exposure control, adjustment of the mA and/or kV according to patient size and/or use of iterative reconstruction technique. Guidance Fluoroscopy 01/15/18 00:00 IMPRESSION: SUCCESSFUL PLACEMENT OF A 5 FR DUAL LUMEN 41 CM PICC IN THE LEFT BASILIC VEIN. Interventional Vascular Procedure 01/15/18 00:00 IMPRESSION: SUCCESSFUL PLACEMENT OF A 5 FR DUAL LUMEN 41 CM PICC IN THE LEFT BASILIC VEIN. PICC Line Insertion 01/15/18 00:00 IMPRESSION: SUCCESSFUL PLACEMENT OF A 5 FR DUAL LUMEN 41 CM PICC IN THE LEFT BASILIC VEIN. KUB X-Ray 01/16/18 00:00 IMPRESSION: There may be a partial small bowel obstruction. Upper GI and Small Bowel X-Ray 01/17/18 00:00 IMPRESSION: No small bowel obstruction Abdomen X-Ray 01/17/18 06:00 IMPRESSION: Few air-filled distended small bowel loops in the mid abdomen, similar compared to previous studies. Ankle X-Ray 01/18/18 00:00 IMPRESSION: Satisfactory postoperative films Fluoroscopy 01/18/18 00:00 IMPRESSION: Intra procedural imaging and fluoro Venous Doppler Study 01/22/18 00:00 IMPRESSION: Acute hypoechoic partially occlusive clot in the left basilic, axillary and subclavian vein adjacent to a PICC line. 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: Diabetes mellitus residential insulin use: with residential use Diabetes mellitus complication status: with neurologic complications Diabetes mellitus complication detail: with polyneuropathy Qualified Code(s): E11.42 - Type 2 diabetes mellitus with diabetic polyneuropathy; Z79.4 - snf (current) use of insulin; Z79.4 - snf (current) use of insulin; Z79.4 - terminal superintendent ( current) use of insulin; Z79.4 - snf (current) use of insulin Is this a current diagnosis for this admission?: Yes (3) Diabetes mellitus type II, controlled Qualifiers: Diabetes mellitus residential insulin use: without termite inspector use Diabetes mellitus complication status: without complication Qualified Code(s): E11.9 - Type 2 diabetes mellitus without complications Is this a current diagnosis for this admission?: Yes (4) Deep vein thrombosis of left upper extremity Qualifiers: Affected thrombotic vein of extremity: unspecified vein of extremity Chronicity: acute Qualified Code(s): I82.622 - Acute embolism and thrombosis of deep veins of left upper extremity Is this a current diagnosis for this admission?: Yes
[2018-01-24 18:33] LABS: ABSOLUTE BASOPHILS # (AUTO) 0.1 10^3/uL (0.0-0.2); ABSOLUTE EOSINOPHILS # (AUTO) 0.4 10^3/uL (0.0-0.6); ABSOLUTE LYMPHOCYTES (AUTO) 1.7 10^3/uL (0.5-4.7); ABSOLUTE MONOCYTES (AUTO) 1.6 10^3/uL (0.1-1.4); ABSOLUTE NEUT (AUTO) 8.8 10^3/uL (1.7-8.2); BASOPHILS % (AUTO) 0.5 % (0-2); HEMATOCRIT 31.4 % (36.0-47.0); HEMOGLOBIN 10.3 g/dL (12.0-15.5); LYMPHOCYTES % (AUTO) 13.6 % (13-45); MEAN CORPUSCULAR HEMOGLOBIN 28.7 pg (27.0-33.4); MEAN CORPUSCULAR HGB CONC 32.9 g/dL (32.0-36.0); MEAN CORPUSCULAR VOLUME 87 fl (80-97); MONOCYTES % (AUTO) 12.4 % (3-13); PLATELET COUNT 250 10^3/uL (150-450); RED BLOOD COUNT 3.61 10^6/uL (3.72-5.28); RED CELL DISTRIBUTION WIDTH 16.9 % (11.5-14.0); SEGMENTED NEUTROPHILS % (AUTO) 70.5 % (42-78); TOTAL CELLS COUNTED % (AUTO) 100 %; WHITE BLOOD COUNT 12.5 10^3/uL (4.0-10.5)
[2018-01-24 18:55] LABS: ALANINE AMINOTRANSFERASE 18 U/L (9-52); ALBUMIN 2.9 g/dL (3.5-5.0); ALKALINE PHOSPHATASE 77 U/L (38-126); ANION GAP 10 (5-19); ASPARTATE AMINO TRANSFERASE 16 U/L (14-36); BILIRUBIN,DIRECT 0.3 mg/dL (0.0-0.4); BILIRUBIN,TOTAL 0.4 mg/dL (0.2-1.3); BLOOD UREA NITROGEN 16 mg/dL (7-20); CALCIUM 8.2 mg/dL (8.4-10.2); CARBON DIOXIDE 27 mmol/L (22-30); CHLORIDE 102 mmol/L (98-107); GLUCOSE 148 mg/dL (75-110); POTASSIUM 4.4 mmol/L (3.6-5.0); TOTAL PROTEIN 6.8 g/dL (6.3-8.2)
[2018-01-24] MEDS: ATORVASTATIN CALCIUM 10 MG TABLET PO SCH (21:43)
[2018-01-24] MEDS: WARFARIN SODIUM 4 MG TABLET PO SCH (21:43)
[2018-01-25] MEDS: PREGABALIN 75 MG CAPSULE PO SCH ×2 (05:14→17:38)
[2018-01-25] MEDS: LANSOPRAZOLE 30 MG TAB.RAP.DR PO SCH (05:14)
[2018-01-25 05:50] LABS: ABSOLUTE BASOPHILS # (AUTO) 0.1 10^3/uL (0.0-0.2); ABSOLUTE EOSINOPHILS # (AUTO) 0.5 10^3/uL (0.0-0.6); ABSOLUTE LYMPHOCYTES (AUTO) 1.5 10^3/uL (0.5-4.7); ABSOLUTE MONOCYTES (AUTO) 1.4 10^3/uL (0.1-1.4); ABSOLUTE NEUT (AUTO) 7.4 10^3/uL (1.7-8.2); BASOPHILS % (AUTO) 0.6 % (0-2); EOSINOPHILS % (AUTO) 4.2 % (0-6); HEMATOCRIT 31.1 % (36.0-47.0); HEMOGLOBIN 10.3 g/dL (12.0-15.5); LYMPHOCYTES % (AUTO) 13.6 % (13-45); MEAN CORPUSCULAR HEMOGLOBIN 29.1 pg (27.0-33.4); MEAN CORPUSCULAR HGB CONC 33.2 g/dL (32.0-36.0); MEAN CORPUSCULAR VOLUME 88 fl (80-97); MONOCYTES % (AUTO) 13.4 % (3-13); PLATELET COUNT 254 10^3/uL (150-450); RED BLOOD COUNT 3.54 10^6/uL (3.72-5.28); RED CELL DISTRIBUTION WIDTH 16.8 % (11.5-14.0); SEGMENTED NEUTROPHILS % (AUTO) 68.2 % (42-78); TOTAL CELLS COUNTED % (AUTO) 100 %; WHITE BLOOD COUNT 10.8 10^3/uL (4.0-10.5)
[2018-01-25 06:03] LABS: INTERNATIONAL RATION (INR) 1.76; PROTHROMBIN TIME 21.4 SEC (11.4-15.4)
[2018-01-25 06:04] LABS: ALANINE AMINOTRANSFERASE 21 U/L (9-52); ALBUMIN 2.8 g/dL (3.5-5.0); ALKALINE PHOSPHATASE 73 U/L (38-126); ANION GAP 9 (5-19); ASPARTATE AMINO TRANSFERASE 14 U/L (14-36); BILIRUBIN,DIRECT 0.4 mg/dL (0.0-0.4); BILIRUBIN,TOTAL 0.5 mg/dL (0.2-1.3); BLOOD UREA NITROGEN 16 mg/dL (7-20); CALCIUM 8.2 mg/dL (8.4-10.2); CARBON DIOXIDE 29 mmol/L (22-30); CHLORIDE 102 mmol/L (98-107); GLUCOSE 136 mg/dL (75-110); POTASSIUM 4.2 mmol/L (3.6-5.0); SODIUM 139.6 mmol/L (137-145); TOTAL PROTEIN 6.6 g/dL (6.3-8.2)
[2018-01-25] MEDS: ENOXAPARIN SODIUM INJ 150 MG/1 ML DISP.SYRIN SUBCUT SCH ×2 (10:31→21:38)
[2018-01-25] MEDS: POLYETHYLENE GLYCOL 3350 POWDER 17 GM/1 PACKET PO SCH (10:31)
[2018-01-25] MEDS: PRAMIPEXOLE DI-HCL 0.25 MG TABLET PO SCH (10:39)
[2018-01-25] MEDS: TOLTERODINE TARTRATE 1 MG TABLET PO SCH ×2 (10:39→21:40)
[2018-01-25] MEDS: NORMAL SALINE 10 ML SDV (SCHEDULED) IV SCH ×2 (10:39→21:41)
[2018-01-25] MEDS: DOCUSATE SODIUM 100 MG CAPSULE PO SCH ×2 (10:41→17:38)
[2018-01-25] MEDS: OXYCODONE HCL IR 5 MG TABLET PO PRN ×2 (10:41→23:20)
[2018-01-25] MEDS: AMLODIPINE BESYLATE 10 MG TABLET PO SCH (11:40)
[2018-01-25] MEDS: METFORMIN HCL 500 MG TABLET PO SCH (17:38)
[2018-01-25 17:50] LABS: APPEARANCE,URINE CLOUDY; BILIRUBIN,URINE NEGATIVE (NEGATIVE); COLOR,URINE YELLOW; GLUCOSE, URINE NEGATIVE (NEGATIVE); KETONES,URINE NEGATIVE (NEGATIVE); LEUKOCYTE ESTERASE,URINE NEGATIVE (NEGATIVE); NITRITE,URINE NEGATIVE (NEGATIVE); PROTEIN,URINE NEGATIVE (NEGATIVE); URINE SPECIFIC GRAVITY 1.009
--- NOTE | 2018-01-25 20:19 | PDOC PROGRESS REPORT ---
Subjective Progress Note for:: 01/25/18 Subjective:: She was seen by the bedside there is no new complaint INR still subtherapeutic Reason For Visit: FRACTURE OF RIGHT FIBULA Physical Exam Vital Signs: Temp Pulse Resp BP Pulse Ox 98.3 F 102 H 16 101/61 97 01/25/18 15:05 01/25/18 15:05 01/25/18 15:05 01/25/18 15:05 01/25/18 15:05 Intake & Output 01/24/18 01/25/18 01/26/18 06:59 06:59 06:59 Intake Total 900 2165 780 Balance 900 2165 780 Weight 134 kg 135.3 kg General appearance: PRESENT: no acute distress Eye exam: PRESENT: PERRLA Respiratory exam: PRESENT: clear to auscultation aliya Cardiovascular exam: PRESENT: +S1, +S2 GI/Abdominal exam: PRESENT: soft Results Laboratory Results: 01/25/18 05:25 01/25/18 05:25 01/25/18 01/25/18 01/25/18 05:25 05:25 17:27 WBC 10.8 H RBC 3.54 L Hgb 10.3 L Hct 31.1 L MCV 88 MCH 29.1 MCHC 33.2 RDW 16.8 H Plt Count 254 Seg Neutrophils % 68.2 Lymphocytes % 13.6 Monocytes % 13.4 H Eosinophils % 4.2 Basophils % 0.6 Absolute Neutrophils 7.4 Absolute Lymphocytes 1.5 Absolute Monocytes 1.4 Absolute Eosinophils 0.5 Absolute Basophils 0.1 Sodium 139.6 Potassium 4.2 Chloride 102 Carbon Dioxide 29 Anion Gap 9 BUN 16 Creatinine 0.97 Est GFR ( Amer) > 60 Est GFR (Non-Af Amer) 56 L Glucose 136 H Calcium 8.2 L Total Bilirubin 0.5 AST 14 ALT 21 Alkaline Phosphatase 73 Total Protein 6.6 Albumin 2.8 L Urine Color YELLOW Urine Appearance CLOUDY Urine pH 5.0 Ur Specific [place] 1.009 Urine Protein NEGATIVE Urine Glucose (UA) NEGATIVE Urine Ketones NEGATIVE Urine Blood SMALL H Urine Nitrite NEGATIVE Ur Leukocyte Esterase NEGATIVE Urine WBC (Auto) 9 Urine RBC (Auto) 9 01/09/18 01/09/18 01/09/18 15:28 15:28 15:28 Creatine Kinase 179 H CK-MB (CK-2) 1.06 Troponin I < 0.012 NT-Pro-B Natriuret Pep 102 01/09/18 01/09/18 01/10/18 23:00 23:00 04:53 Creatine Kinase 221 H 190 H CK-MB (CK-2) 1.01 Troponin I < 0.012 NT-Pro-B Natriuret Pep 01/10/18 04:53 Creatine Kinase CK-MB (CK-2) 0.76 Troponin I < 0.012 NT-Pro-B Natriuret Pep Impressions: Foot X-Ray 01/09/18 13:21 IMPRESSION: No acute fracture right foot Hip/Pelvis X-Ray 01/09/18 14:10 IMPRESSION: Nothing acute. No acute fracture or dislocation right hip. Lumbar Spine X-Ray 01/09/18 14:10 IMPRESSION: SPONDYLOSIS WITHOUT FRACTURE. Chest X-Ray 01/13/18 00:00 IMPRESSION: NO ACUTE RADIOGRAPHIC FINDING IN THE CHEST. Abdomen/Pelvis CT 01/14/18 00:00 IMPRESSION: 1. Findings compatible with small bowel obstruction with possible transition point in the mid abdomen. 2. Cholelithiasis. 2. Diverticulosis without evidence of acute diverticulitis. This exam was performed according to our departmental dose-optimization program, which includes automated exposure control, adjustment of the mA and/or kV according to patient size and/or use of iterative reconstruction technique. Guidance Fluoroscopy 01/15/18 00:00 IMPRESSION: SUCCESSFUL PLACEMENT OF A 5 FR DUAL LUMEN 41 CM PICC IN THE LEFT BASILIC VEIN. Interventional Vascular Procedure 01/15/18 00:00 IMPRESSION: SUCCESSFUL PLACEMENT OF A 5 FR DUAL LUMEN 41 CM PICC IN THE LEFT BASILIC VEIN. PICC Line Insertion 01/15/18 00:00 IMPRESSION: SUCCESSFUL PLACEMENT OF A 5 FR DUAL LUMEN 41 CM PICC IN THE LEFT BASILIC VEIN. KUB X-Ray 01/16/18 00:00 IMPRESSION: There may be a partial small bowel obstruction. Upper GI and Small Bowel X-Ray 01/17/18 00:00 IMPRESSION: No small bowel obstruction Abdomen X-Ray 01/17/18 06:00 IMPRESSION: Few air-filled distended small bowel loops in the mid abdomen, similar compared to previous studies. Ankle X-Ray 01/18/18 00:00 IMPRESSION: Satisfactory postoperative films Fluoroscopy 01/18/18 00:00 IMPRESSION: Intra procedural imaging and fluoro Venous Doppler Study 01/22/18 00:00 IMPRESSION: Acute hypoechoic partially occlusive clot in the left basilic, axillary and subclavian vein adjacent to a PICC line. 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: Diabetes mellitus halfway insulin use: with long term acute care registered nurse use Diabetes mellitus complication status: with neurologic complications Diabetes mellitus complication detail: with polyneuropathy Qualified Code(s): E11.42 - Type 2 diabetes mellitus with diabetic polyneuropathy; Z79.4 - ferry terminal agent (current) use of insulin; Z79.4 - detention (current) use of insulin; Z79.4 - ferry terminal agent ( current) use of insulin; Z79.4 - ferry terminal agent (current) use of insulin Is this a current diagnosis for this admission?: Yes (3) Diabetes mellitus type II, controlled Qualifiers: Diabetes mellitus long term acute care registered nurse insulin use: without long term acute care registered nurse use Diabetes mellitus complication status: without complication Qualified Code(s): E11.9 - Type 2 diabetes mellitus without complications Is this a current diagnosis for this admission?: Yes (4) Deep vein thrombosis of left upper extremity Qualifiers: Affected thrombotic vein of extremity: unspecified vein of extremity Chronicity: acute Qualified Code(s): I82.622 - Acute embolism and thrombosis of deep veins of left upper extremity Is this a current diagnosis for this admission?: Yes
[2018-01-25] MEDS: ATORVASTATIN CALCIUM 10 MG TABLET PO SCH (21:40)
[2018-01-25] MEDS: WARFARIN SODIUM 4 MG TABLET PO SCH (21:44)
[2018-01-26] MEDS ORDERED: OXYCODONE HCL IR 5 MG TABLET PO PRN ×3 (01:41→17:22)
[2018-01-26] MEDS ORDERED: OXYCODONE HCL IR 5 MG TABLET PO ONE ×2 (01:45→04:00)
[2018-01-26] MEDS: PREGABALIN 75 MG CAPSULE PO SCH ×2 (05:54→22:07)
[2018-01-26] MEDS: LANSOPRAZOLE 30 MG TAB.RAP.DR PO SCH (05:54)
[2018-01-26] MEDS ORDERED: KETOROLAC TROMETHAMINE INJ/PF 30 MG/1 ML SDV IV ONE (06:45)
[2018-01-26 07:08] LABS: INTERNATIONAL RATION (INR) 1.82
--- NOTE | 2018-01-26 08:32 | PDOC PROGRESS REPORT ---
Subjective Progress Note for:: 01/26/18 Reason For Visit: FRACTURE OF RIGHT FIBULA 77-year-old female status post open reduction internal fixation of a right bimalleolar ankle fracture now with new onset pain that begins in the buttock region and extends down to the foot. Physical Exam Vital Signs: Temp Pulse Resp BP Pulse Ox 36.7 C 90 20 111/61 96 01/25/18 23:07 01/25/18 23:07 01/25/18 23:07 01/25/18 23:07 01/25/18 23:07 Intake & Output 01/25/18 01/26/18 01/27/18 06:59 06:59 06:59 Intake Total 2165 820 Balance 2165 820 Weight 135.3 kg 135 kg General appearance: PRESENT: mild distress, severe distress Head exam: PRESENT: normocephalic Respiratory exam: PRESENT: unlabored Cardiovascular exam: PRESENT: RRR Pulses: PRESENT: +1 pedal pulses bilateral Vascular exam: PRESENT: normal capillary refill GI/Abdominal exam: PRESENT: soft Rectal exam: PRESENT: deferred Extremities exam: PRESENT: other - Right lower extremity dressing is removed. The wounds are clean dry and intact. Patient finding of excruciating pain down the right lower extremity. There is no increased swelling below the knee. Motor and sensory examination are difficult to assess because of the patient's level of discomfort Results Laboratory Results: 01/25/18 05:25 01/25/18 05:25 01/25/18 17:27 Urine Color YELLOW Urine Appearance CLOUDY Urine pH 5.0 Ur Specific [place] 1.009 Urine Protein NEGATIVE Urine Glucose (UA) NEGATIVE Urine Ketones NEGATIVE Urine Blood SMALL H Urine Nitrite NEGATIVE Ur Leukocyte Esterase NEGATIVE Urine WBC (Auto) 9 Urine RBC (Auto) 9 01/09/18 01/09/18 01/09/18 15:28 15:28 15:28 Creatine Kinase 179 H CK-MB (CK-2) 1.06 Troponin I < 0.012 NT-Pro-B Natriuret Pep 102 01/09/18 01/09/18 01/10/18 23:00 23:00 04:53 Creatine Kinase 221 H 190 H CK-MB (CK-2) 1.01 Troponin I < 0.012 NT-Pro-B Natriuret Pep 01/10/18 04:53 Creatine Kinase CK-MB (CK-2) 0.76 Troponin I < 0.012 NT-Pro-B Natriuret Pep Impressions: Foot X-Ray 01/09/18 13:21 IMPRESSION: No acute fracture right foot Hip/Pelvis X-Ray 01/09/18 14:10 IMPRESSION: Nothing acute. No acute fracture or dislocation right hip. Lumbar Spine X-Ray 01/09/18 14:10 IMPRESSION: SPONDYLOSIS WITHOUT FRACTURE. Chest X-Ray 01/13/18 00:00 IMPRESSION: NO ACUTE RADIOGRAPHIC FINDING IN THE CHEST. Abdomen/Pelvis CT 01/14/18 00:00 IMPRESSION: 1. Findings compatible with small bowel obstruction with possible transition point in the mid abdomen. 2. Cholelithiasis. 2. Diverticulosis without evidence of acute diverticulitis. This exam was performed according to our departmental dose-optimization program, which includes automated exposure control, adjustment of the mA and/or kV according to patient size and/or use of iterative reconstruction technique. Guidance Fluoroscopy 01/15/18 00:00 IMPRESSION: SUCCESSFUL PLACEMENT OF A 5 FR DUAL LUMEN 41 CM PICC IN THE LEFT BASILIC VEIN. Interventional Vascular Procedure 01/15/18 00:00 IMPRESSION: SUCCESSFUL PLACEMENT OF A 5 FR DUAL LUMEN 41 CM PICC IN THE LEFT BASILIC VEIN. PICC Line Insertion 01/15/18 00:00 IMPRESSION: SUCCESSFUL PLACEMENT OF A 5 FR DUAL LUMEN 41 CM PICC IN THE LEFT BASILIC VEIN. KUB X-Ray 01/16/18 00:00 IMPRESSION: There may be a partial small bowel obstruction. Upper GI and Small Bowel X-Ray 01/17/18 00:00 IMPRESSION: No small bowel obstruction Abdomen X-Ray 01/17/18 06:00 IMPRESSION: Few air-filled distended small bowel loops in the mid abdomen, similar compared to previous studies. Ankle X-Ray 01/18/18 00:00 IMPRESSION: Satisfactory postoperative films Fluoroscopy 01/18/18 00:00 IMPRESSION: Intra procedural imaging and fluoro Venous Doppler Study 01/22/18 00:00 IMPRESSION: Acute hypoechoic partially occlusive clot in the left basilic, axillary and subclavian vein adjacent to a PICC line. Status: Imported from PACS Assessment & Plan - Diagnosis (1) Bimalleolar fracture of right ankle Qualifiers: Encounter type: initial encounter Fracture type: closed Qualified Code(s) : S82.841A - Displaced bimalleolar fracture of right lower leg, initial encounter for closed fracture Is this a current diagnosis for this admission?: Yes Plan: Stable. Brace shop requested to bring a cam walker. (2) Lumbar radiculopathy, acute Is this a current diagnosis for this admission?: Yes Plan: Lumbar x-rays ordered
[2018-01-26] MEDS: ENOXAPARIN SODIUM INJ 150 MG/1 ML DISP.SYRIN SUBCUT SCH (10:28)
[2018-01-26] MEDS: DOCUSATE SODIUM 100 MG CAPSULE PO SCH ×2 (10:28→17:23)
[2018-01-26] MEDS: AMLODIPINE BESYLATE 10 MG TABLET PO SCH (10:28)
[2018-01-26] MEDS: PRAMIPEXOLE DI-HCL 0.25 MG TABLET PO SCH (10:29)
[2018-01-26] MEDS: NORMAL SALINE 10 ML SDV (SCHEDULED) IV SCH ×2 (10:29→22:07)
[2018-01-26] MEDS: POLYETHYLENE GLYCOL 3350 POWDER 17 GM/1 PACKET PO SCH (10:29)
[2018-01-26] MEDS: TOLTERODINE TARTRATE 1 MG TABLET PO SCH ×2 (10:30→22:07)
--- NOTE | 2018-01-26 10:36 | RADIOLOGY REPORT (SQ) ---
EXAM DESCRIPTION: VENOUS UNILATERAL LOWER COMPLETED DATE/TIME: 01/26/2018 10:24 am REASON FOR STUDY: right leg pain. Current DVT RUE. History of DVT. COMPARISON: None. TECHNIQUE: Dynamic and static jeff scale and color images acquired of the right leg venous system. S elected spectral images acquired with additional compression and augmentation maneuvers. The contrala teral common femoral vein and saphenofemoral junction were also imaged. Images stored on PACS. LIMITATIONS: PATIENT PAIN. FINDINGS: COMMON FEMORAL: Normal phasicity, compression and augmentation. No visualized echogenic ma terial on jeff scale. No defects on color images. FEMORAL: Normal compression and augmentation. No visualized echogenic material on jeff scale. No defe cts on color images. POPLITEAL: Normal compression, augmentation. No visualized echogenic material on jeff scale. No defec ts on color images. CALF VESSELS: Normal compression, augmentation. No visualized echogenic material on jfef scale. No de fects on color images. GSV and SSV: Normal compression, augmentation. No visualized echogenic material on jeff scale. No def ects on color images. ANY DEEP VENOUS INSUFFICIENCY: Not evaluated. ANY EVIDENCE OF POPLITEAL CYST: No. OTHER: Incomplete visualization of hypoechoic region posterior thigh. CONTRALATERAL COMMON FEMORAL VEIN AND SAPHENOFEMORAL JUNCTION: Not imaged. IMPRESSION: NO EVIDENCE DVT OR SVT IN THE RIGHT LEG. INCOMPLETE VISUALIZATION OF HYPOECHOIC REGION POSTERIOR RIGHT THIGH POTENTIALLY COULD REPRESENT EXTEN [place] OF A POPLITEAL FOSSA CYST OR HEMATOMA. CORRELATE WITH ANY HISTORY OF TRAUMA. TECHNICAL DOCUMENTATION: JOB ID: [id number] [employer]- All Rights Reserved Reading location - IP/workstation name: [email or web address]
--- NOTE | 2018-01-26 11:27 | PDOC PROGRESS REPORT ---
Subjective Progress Note for:: 01/26/18 Subjective:: Patient is complaining of pain below the right knee and the thigh area Ultrasound done this morning was negative for any acute clot or SVT or possible popliteal cyst versus small hematoma Patient actually feeling better this morning She has denied any chest pain denied any shortness of the breath Had a DVT in upper extremity She is currently on Lovenox and Coumadin Patient's already received the 1 dose of the Lovenox this morning and patient INR is 1.82 Reason For Visit: FRACTURE OF RIGHT FIBULA Physical Exam Vital Signs: Temp Pulse Resp BP Pulse Ox 98.6 F 87 20 125/70 90 L 01/26/18 08:00 01/26/18 08:00 01/26/18 08:00 01/26/18 08:00 01/26/18 08:00 Intake & Output 01/25/18 01/26/18 01/27/18 06:59 06:59 06:59 Intake Total 2165 820 Balance 2165 820 Weight 135.3 kg 135 kg General appearance: PRESENT: no acute distress, well-developed, well-nourished Head exam: PRESENT: atraumatic, normocephalic Eye exam: PRESENT: conjunctiva pink, EOMI, PERRLA. ABSENT: scleral icterus Ear exam: PRESENT: normal external ear exam Mouth exam: PRESENT: moist, tongue midline Neck exam: PRESENT: full ROM. ABSENT: carotid bruit, JVD, lymphadenopathy, thyromegaly Respiratory exam: PRESENT: clear to auscultation aliya Cardiovascular exam: PRESENT: RRR. ABSENT: diastolic murmur, rubs, systolic murmur Pulses: PRESENT: normal dorsalis pedis pul, +2 pedal pulses bilateral Vascular exam: PRESENT: normal capillary refill GI/Abdominal exam: PRESENT: normal bowel sounds, soft. ABSENT: distended, guarding, mass, organolmegaly, rebound, tenderness Rectal exam: PRESENT: deferred Extremities exam: ABSENT: pedal edema Additional comments: Below the right knee there is no redness some mild tenderness Neurological exam: PRESENT: alert, awake, oriented to person, oriented to place , oriented to time, oriented to situation, CN II-XII grossly intact. ABSENT: motor sensory deficit Psychiatric exam: PRESENT: appropriate affect, normal mood. ABSENT: homicidal ideation, suicidal ideation Skin exam: PRESENT: dry, intact, warm. ABSENT: cyanosis, rash Results Laboratory Results: 01/25/18 05:25 01/25/18 05:25 01/25/18 17:27 Urine Color YELLOW Urine Appearance CLOUDY Urine pH 5.0 Ur Specific [place] 1.009 Urine Protein NEGATIVE Urine Glucose (UA) NEGATIVE Urine Ketones NEGATIVE Urine Blood SMALL H Urine Nitrite NEGATIVE Ur Leukocyte Esterase NEGATIVE Urine WBC (Auto) 9 Urine RBC (Auto) 9 01/09/18 01/09/18 01/09/18 15:28 15:28 15:28 Creatine Kinase 179 H CK-MB (CK-2) 1.06 Troponin I < 0.012 NT-Pro-B Natriuret Pep 102 01/09/18 01/09/18 01/10/18 23:00 23:00 04:53 Creatine Kinase 221 H 190 H CK-MB (CK-2) 1.01 Troponin I < 0.012 NT-Pro-B Natriuret Pep 01/10/18 04:53 Creatine Kinase CK-MB (CK-2) 0.76 Troponin I < 0.012 NT-Pro-B Natriuret Pep Impressions: Foot X-Ray 01/09/18 13:21 IMPRESSION: No acute fracture right foot Hip/Pelvis X-Ray 01/09/18 14:10 IMPRESSION: Nothing acute. No acute fracture or dislocation right hip. Lumbar Spine X-Ray 01/09/18 14:10 IMPRESSION: SPONDYLOSIS WITHOUT FRACTURE. Chest X-Ray 01/13/18 00:00 IMPRESSION: NO ACUTE RADIOGRAPHIC FINDING IN THE CHEST. Abdomen/Pelvis CT 01/14/18 00:00 IMPRESSION: 1. Findings compatible with small bowel obstruction with possible transition point in the mid abdomen. 2. Cholelithiasis. 2. Diverticulosis without evidence of acute diverticulitis. This exam was performed according to our departmental dose-optimization program, which includes automated exposure control, adjustment of the mA and/or kV according to patient size and/or use of iterative reconstruction technique. Guidance Fluoroscopy 01/15/18 00:00 IMPRESSION: SUCCESSFUL PLACEMENT OF A 5 FR DUAL LUMEN 41 CM PICC IN THE LEFT BASILIC VEIN. Interventional Vascular Procedure 01/15/18 00:00 IMPRESSION: SUCCESSFUL PLACEMENT OF A 5 FR DUAL LUMEN 41 CM PICC IN THE LEFT BASILIC VEIN. PICC Line Insertion 01/15/18 00:00 IMPRESSION: SUCCESSFUL PLACEMENT OF A 5 FR DUAL LUMEN 41 CM PICC IN THE LEFT BASILIC VEIN. KUB X-Ray 01/16/18 00:00 IMPRESSION: There may be a partial small bowel obstruction. Upper GI and Small Bowel X-Ray 01/17/18 00:00 IMPRESSION: No small bowel obstruction Abdomen X-Ray 01/17/18 06:00 IMPRESSION: Few air-filled distended small bowel loops in the mid abdomen, similar compared to previous studies. Ankle X-Ray 01/18/18 00:00 IMPRESSION: Satisfactory postoperative films Fluoroscopy 01/18/18 00:00 IMPRESSION: Intra procedural imaging and fluoro Venous Doppler Study 01/26/18 00:00 IMPRESSION: NO EVIDENCE DVT OR SVT IN THE RIGHT LEG. INCOMPLETE VISUALIZATION OF HYPOECHOIC REGION POSTERIOR RIGHT THIGH POTENTIALLY COULD REPRESENT EXTENSION OF A POPLITEAL FOSSA CYST OR HEMATOMA. CORRELATE WITH ANY HISTORY OF TRAUMA. Assessment & Plan - Diagnosis (1) Bimalleolar fracture of right ankle Qualifiers: Encounter type: initial encounter Fracture type: closed Qualified Code(s) : S82.841A - Displaced bimalleolar fracture of right lower leg, initial encounter for closed fracture Is this a current diagnosis for this admission?: Yes Plan: This post surgery currently follow with the Dr. Dela Cruz (2) Anemia due to acute blood loss Is this a current diagnosis for this admission?: Yes Plan: Clear all stable (3) Anticoagulation excessive Is this a current diagnosis for this admission?: Yes (4) Diabetes mellitus type II, controlled Qualifiers: Diabetes mellitus snf insulin use: without termite technician use Diabetes mellitus complication status: without complication Qualified Code(s): E11.9 - Type 2 diabetes mellitus without complications Is this a current diagnosis for this admission?: Yes (5) Hypotension Qualifiers: Hypotension type: unspecified hypotension type Qualified Code(s): I95.9 - Hypotension, unspecified Is this a current diagnosis for this admission?: Yes Plan: [place] all resolved (6) Obesity Qualifiers: Obesity type: due to excess calories Qualified Code(s): E66.01 - Morbid ( severe) obesity due to excess calories Is this a current diagnosis for this admission?: Yes (7) Cough Is this a current diagnosis for this admission?: Yes (8) Escherichia coli urinary tract infection Is this a current diagnosis for this admission?: Yes (9) Small bowel obstruction Is this a current diagnosis for this admission?: Yes Plan: Resolved (10) Right leg pain Is this a current diagnosis for this admission?: Yes Plan: Popliteal cyst with a small hematoma ultrasound versus radiculopathy from the back Patient's INR is almost close to the 2 patient already received the 1 dose of Lovenox currently hold the Lovenox and increase the Coumadin to 5 mg (11) Deep vein thrombosis of left upper extremity Qualifiers: Affected thrombotic vein of extremity: unspecified vein of extremity Chronicity: acute Qualified Code(s): I82.622 - Acute embolism and thrombosis of deep veins of left upper extremity Is this a current diagnosis for this admission?: Yes Plan: Is currently on a Coumadin (12) Lumbar radiculopathy, acute Is this a current diagnosis for this admission?: Yes Plan: The LS spine x ray order - Time Time Spent with patient: 15-24 minutes Medications reviewed and adjusted accordingly: Yes Anticipated discharge: Other Within: Other - Inpatient Certification Medical Necessity: Need Close Monitoring Due to Risk of Patient Decompensation 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
[2018-01-26] MEDS ORDERED: WARFARIN SODIUM 4 MG TABLET PO SCH (12:00)
[2018-01-26] MEDS: OXYCODONE HCL IR 5 MG TABLET PO PRN (13:57)
--- NOTE | 2018-01-26 15:36 | RADIOLOGY REPORT (SQ) ---
EXAM DESCRIPTION: L SPINE WHOLE COMPLETED DATE/TIME: 01/26/2018 3:25 pm REASON FOR STUDY: back pain, upper r thigh pain COMPARISON: 01/09/2018 NUMBER OF VIEWS: Five views including obliques. TECHNIQUE: AP, lateral, oblique, and sacral radiographic images acquired of the lumbar spine. LIMITATIONS: None. FINDINGS: MINERALIZATION: Normal. SEGMENTATION: Normal. No transitional anatomy. ALIGNMENT: Normal. VERTEBRAE: Maintained height. No fracture or worrisome bone lesion. DISCS: Multilevel disc space narrowing with osteophytes. POSTERIOR ELEMENTS: Pedicles and facets are intact. No pars defect or posterior arch defects. Facet arthropathy is present. HARDWARE: None in the spine. PARASPINAL SOFT TISSUES: Normal. PELVIS: Intact as visualized. No fractures or worrisome bone lesions. SI joints intact. OTHER: No other significant finding. IMPRESSION: NO ACUTE OSSEOUS ABNORMALITY. NO SIGNIFICANT CHANGE FROM 01/09/2018. TECHNICAL DOCUMENTATION: JOB ID: [id number] [employer]- All Rights Reserved Reading location - IP/workstation name: [email or web address]
[2018-01-26] MEDS: METFORMIN HCL 500 MG TABLET PO SCH (17:23)
[2018-01-26] MEDS: ACETAMINOPHEN 325 MG TABLET PO PRN (20:18)
[2018-01-26] MEDS: ATORVASTATIN CALCIUM 10 MG TABLET PO SCH (22:07)
[2018-01-26] MEDS: WARFARIN SODIUM 5 MG TABLET PO SCH (22:08)
[2018-01-27] MEDS: PREGABALIN 75 MG CAPSULE PO SCH ×3 (05:23→22:45)
[2018-01-27] MEDS: LANSOPRAZOLE 30 MG TAB.RAP.DR PO SCH (05:23)
[2018-01-27 06:08] LABS: INTERNATIONAL RATION (INR) 2.37
[2018-01-27 06:26] LABS: ANION GAP 6 (5-19); BLOOD UREA NITROGEN 18 mg/dL (7-20); CALCIUM 8.3 mg/dL (8.4-10.2); CARBON DIOXIDE 29 mmol/L (22-30); CHLORIDE 100 mmol/L (98-107); GLUCOSE 166 mg/dL (75-110); POTASSIUM 5.1 mmol/L (3.6-5.0); SODIUM 134.7 mmol/L (137-145)
[2018-01-27] MEDS: ACETAMINOPHEN 325 MG TABLET PO PRN ×2 (07:38→15:28)
--- NOTE | 2018-01-27 07:40 | PDOC PROGRESS REPORT ---
Subjective Progress Note for:: 01/27/18 Reason For Visit: FRACTURE OF RIGHT FIBULA 77-year-old white female status post ORIF of a right bimalleolar ankle fracture and multiple medical comorbidities/complications. Patient now continues to complain of right lower extremity pain consistent with a lumbar radiculopathy. Lumbar x-rays are unchanged from earlier this month. Physical Exam Vital Signs: Temp Pulse Resp BP Pulse Ox 37.3 C 104 H 20 105/65 92 01/26/18 23:20 01/26/18 23:20 01/26/18 23:20 01/26/18 23:20 01/26/18 23:20 Intake & Output 01/26/18 01/27/18 01/28/18 06:59 06:59 06:59 Intake Total 820 1340 Balance 820 1340 Weight 135 kg 134.2 kg General appearance: PRESENT: mild distress Head exam: PRESENT: normocephalic Respiratory exam: PRESENT: unlabored Cardiovascular exam: PRESENT: RRR Pulses: PRESENT: +1 pedal pulses bilateral Vascular exam: PRESENT: normal capillary refill Extremities exam: PRESENT: other - Right ankle wounds clean and dry. Cam walker has not yet been applied. Passive range of motion right lower extremity results in pain from the buttock to the toes. Neurological exam: PRESENT: alert, awake, oriented to person, oriented to place , oriented to time, oriented to situation. ABSENT: motor sensory deficit Psychiatric exam: PRESENT: appropriate affect, normal mood. ABSENT: homicidal ideation, suicidal ideation Skin exam: PRESENT: dry, intact, warm. ABSENT: cyanosis, rash Results Laboratory Results: 01/25/18 05:25 01/27/18 05:35 01/27/18 05:35 Sodium 134.7 L Potassium 5.1 H Chloride 100 Carbon Dioxide 29 Anion Gap 6 BUN 18 Creatinine 1.00 Est GFR ( Amer) > 60 Est GFR (Non-Af Amer) 54 L Glucose 166 H Calcium 8.3 L 01/09/18 01/09/18 01/09/18 15:28 15:28 15:28 Creatine Kinase 179 H CK-MB (CK-2) 1.06 Troponin I < 0.012 NT-Pro-B Natriuret Pep 102 01/09/18 01/09/18 01/10/18 23:00 23:00 04:53 Creatine Kinase 221 H 190 H CK-MB (CK-2) 1.01 Troponin I < 0.012 NT-Pro-B Natriuret Pep 01/10/18 04:53 Creatine Kinase CK-MB (CK-2) 0.76 Troponin I < 0.012 NT-Pro-B Natriuret Pep Impressions: Foot X-Ray 01/09/18 13:21 IMPRESSION: No acute fracture right foot Hip/Pelvis X-Ray 01/09/18 14:10 IMPRESSION: Nothing acute. No acute fracture or dislocation right hip. Chest X-Ray 01/13/18 00:00 IMPRESSION: NO ACUTE RADIOGRAPHIC FINDING IN THE CHEST. Abdomen/Pelvis CT 01/14/18 00:00 IMPRESSION: 1. Findings compatible with small bowel obstruction with possible transition point in the mid abdomen. 2. Cholelithiasis. 2. Diverticulosis without evidence of acute diverticulitis. This exam was performed according to our departmental dose-optimization program, which includes automated exposure control, adjustment of the mA and/or kV according to patient size and/or use of iterative reconstruction technique. Guidance Fluoroscopy 01/15/18 00:00 IMPRESSION: SUCCESSFUL PLACEMENT OF A 5 FR DUAL LUMEN 41 CM PICC IN THE LEFT BASILIC VEIN. Interventional Vascular Procedure 01/15/18 00:00 IMPRESSION: SUCCESSFUL PLACEMENT OF A 5 FR DUAL LUMEN 41 CM PICC IN THE LEFT BASILIC VEIN. PICC Line Insertion 01/15/18 00:00 IMPRESSION: SUCCESSFUL PLACEMENT OF A 5 FR DUAL LUMEN 41 CM PICC IN THE LEFT BASILIC VEIN. KUB X-Ray 01/16/18 00:00 IMPRESSION: There may be a partial small bowel obstruction. Upper GI and Small Bowel X-Ray 01/17/18 00:00 IMPRESSION: No small bowel obstruction Abdomen X-Ray 01/17/18 06:00 IMPRESSION: Few air-filled distended small bowel loops in the mid abdomen, similar compared to previous studies. Ankle X-Ray 01/18/18 00:00 IMPRESSION: Satisfactory postoperative films Fluoroscopy 01/18/18 00:00 IMPRESSION: Intra procedural imaging and fluoro Venous Doppler Study 01/26/18 00:00 IMPRESSION: NO EVIDENCE DVT OR SVT IN THE RIGHT LEG. INCOMPLETE VISUALIZATION OF HYPOECHOIC REGION POSTERIOR RIGHT THIGH POTENTIALLY COULD REPRESENT EXTENSION OF A POPLITEAL FOSSA CYST OR HEMATOMA. CORRELATE WITH ANY HISTORY OF TRAUMA. Lumbar Spine X-Ray 01/26/18 11:36 IMPRESSION: NO ACUTE OSSEOUS ABNORMALITY. NO SIGNIFICANT CHANGE FROM 2017. Status: Imported from PACS Assessment & Plan - Diagnosis (1) Bimalleolar fracture of right ankle Qualifiers: Encounter type: initial encounter Fracture type: closed Qualified Code(s) : S82.841A - Displaced bimalleolar fracture of right lower leg, initial encounter for closed fracture Is this a current diagnosis for this admission?: Yes Plan: Stable. Awaiting cam walker application. (2) Lumbar radiculopathy, acute Is this a current diagnosis for this admission?: Yes Plan: I think this is likely to resolve spontaneously. The question should an MRI scan be obtained to look for HNP - Time Time Spent with patient: 15-24 minutes Anticipated discharge: SNF Within: Other
[2018-01-27] MEDS ORDERED: CEFTRIAXONE 1 GM/D5W RTU 1 GM/50 ML RTUPB IV SCH (10:00)
[2018-01-27] MEDS: AMLODIPINE BESYLATE 10 MG TABLET PO SCH (10:22)
[2018-01-27] MEDS: POLYETHYLENE GLYCOL 3350 POWDER 17 GM/1 PACKET PO SCH (10:22)
[2018-01-27] MEDS: PRAMIPEXOLE DI-HCL 0.25 MG TABLET PO SCH (10:22)
[2018-01-27] MEDS: DOCUSATE SODIUM 100 MG CAPSULE PO SCH ×2 (10:22→15:29)
[2018-01-27] MEDS: NORMAL SALINE 10 ML SDV (SCHEDULED) IV SCH ×2 (10:23→22:45)
[2018-01-27] MEDS: TOLTERODINE TARTRATE 1 MG TABLET PO SCH ×2 (10:23→22:44)
[2018-01-27] MEDS: OXYCODONE HCL IR 5 MG TABLET PO PRN (10:23)
--- NOTE | 2018-01-27 11:18 | PDOC PROGRESS REPORT ---
Subjective Progress Note for:: 01/27/18 Subjective:: Patient is currently doing same Seen by the pain management and adjust the pain medications Seen by Dr. Dela Cruz Patient INR is about2 As I noticed some low-grade fever not sure but will do some sepsis workup Reason For Visit: FRACTURE OF RIGHT FIBULA Physical Exam Vital Signs: Temp Pulse Resp BP Pulse Ox 100.1 F 104 H 18 110/56 L 93 01/27/18 08:00 01/27/18 08:00 01/27/18 08:00 01/27/18 08:00 01/27/18 08:00 Intake & Output 01/26/18 01/27/18 01/28/18 06:59 06:59 06:59 Intake Total 820 1340 Balance 820 1340 Weight 135 kg 134.2 kg General appearance: PRESENT: no acute distress, well-developed, well-nourished Head exam: PRESENT: atraumatic, normocephalic Eye exam: PRESENT: conjunctiva pink, EOMI, PERRLA. ABSENT: scleral icterus Ear exam: PRESENT: normal external ear exam Mouth exam: PRESENT: moist, tongue midline Neck exam: PRESENT: full ROM. ABSENT: carotid bruit, JVD, lymphadenopathy, thyromegaly Respiratory exam: PRESENT: clear to auscultation aliya Cardiovascular exam: PRESENT: RRR. ABSENT: diastolic murmur, rubs, systolic murmur Pulses: PRESENT: normal dorsalis pedis pul, +2 pedal pulses bilateral Vascular exam: PRESENT: normal capillary refill GI/Abdominal exam: PRESENT: normal bowel sounds, soft. ABSENT: distended, guarding, mass, organolmegaly, rebound, tenderness Rectal exam: PRESENT: deferred Additional comments: Right side of the foot dressing is intact and above-knee though some mild swelling but no redness Neurological exam: PRESENT: alert, awake, oriented to person, oriented to place , oriented to time, oriented to situation, CN II-XII grossly intact. ABSENT: motor sensory deficit Psychiatric exam: PRESENT: appropriate affect, normal mood. ABSENT: homicidal ideation, suicidal ideation Skin exam: PRESENT: dry, intact, warm. ABSENT: cyanosis, rash Results Laboratory Results: 01/25/18 05:25 01/27/18 05:35 01/27/18 05:35 Sodium 134.7 L Potassium 5.1 H Chloride 100 Carbon Dioxide 29 Anion Gap 6 BUN 18 Creatinine 1.00 Est GFR ( Amer) > 60 Est GFR (Non-Af Amer) 54 L Glucose 166 H Calcium 8.3 L 01/09/18 01/09/18 01/09/18 15:28 15:28 15:28 Creatine Kinase 179 H CK-MB (CK-2) 1.06 Troponin I < 0.012 NT-Pro-B Natriuret Pep 102 01/09/18 01/09/18 01/10/18 23:00 23:00 04:53 Creatine Kinase 221 H 190 H CK-MB (CK-2) 1.01 Troponin I < 0.012 NT-Pro-B Natriuret Pep 01/10/18 04:53 Creatine Kinase CK-MB (CK-2) 0.76 Troponin I < 0.012 NT-Pro-B Natriuret Pep Impressions: Foot X-Ray 01/09/18 13:21 IMPRESSION: No acute fracture right foot Hip/Pelvis X-Ray 01/09/18 14:10 IMPRESSION: Nothing acute. No acute fracture or dislocation right hip. Abdomen/Pelvis CT 01/14/18 00:00 IMPRESSION: 1. Findings compatible with small bowel obstruction with possible transition point in the mid abdomen. 2. Cholelithiasis. 2. Diverticulosis without evidence of acute diverticulitis. This exam was performed according to our departmental dose-optimization program, which includes automated exposure control, adjustment of the mA and/or kV according to patient size and/or use of iterative reconstruction technique. Guidance Fluoroscopy 01/15/18 00:00 IMPRESSION: SUCCESSFUL PLACEMENT OF A 5 FR DUAL LUMEN 41 CM PICC IN THE LEFT BASILIC VEIN. Interventional Vascular Procedure 01/15/18 00:00 IMPRESSION: SUCCESSFUL PLACEMENT OF A 5 FR DUAL LUMEN 41 CM PICC IN THE LEFT BASILIC VEIN. PICC Line Insertion 01/15/18 00:00 IMPRESSION: SUCCESSFUL PLACEMENT OF A 5 FR DUAL LUMEN 41 CM PICC IN THE LEFT BASILIC VEIN. KUB X-Ray 01/16/18 00:00 IMPRESSION: There may be a partial small bowel obstruction. Upper GI and Small Bowel X-Ray 01/17/18 00:00 IMPRESSION: No small bowel obstruction Abdomen X-Ray 01/17/18 06:00 IMPRESSION: Few air-filled distended small bowel loops in the mid abdomen, similar compared to previous studies. Ankle X-Ray 01/18/18 00:00 IMPRESSION: Satisfactory postoperative films Fluoroscopy 01/18/18 00:00 IMPRESSION: Intra procedural imaging and fluoro Venous Doppler Study 01/26/18 00:00 IMPRESSION: NO EVIDENCE DVT OR SVT IN THE RIGHT LEG. INCOMPLETE VISUALIZATION OF HYPOECHOIC REGION POSTERIOR RIGHT THIGH POTENTIALLY COULD REPRESENT EXTENSION OF A POPLITEAL FOSSA CYST OR HEMATOMA. CORRELATE WITH ANY HISTORY OF TRAUMA. Lumbar Spine X-Ray 01/26/18 11:36 IMPRESSION: NO ACUTE OSSEOUS ABNORMALITY. NO SIGNIFICANT CHANGE FROM 2017. Assessment & Plan - Diagnosis (1) Bimalleolar fracture of right ankle Qualifiers: Encounter type: initial encounter Fracture type: closed Qualified Code(s) : S82.841A - Displaced bimalleolar fracture of right lower leg, initial encounter for closed fracture Is this a current diagnosis for this admission?: Yes Plan: This post surgery currently follow with the Dr. Dela Cruz (2) Anemia due to acute blood loss Is this a current diagnosis for this admission?: Yes Plan: Clear all stable (3) Anticoagulation excessive Is this a current diagnosis for this admission?: Yes (4) Diabetes mellitus type II, controlled Qualifiers: Diabetes mellitus long term care pharmacist insulin use: without group home use Diabetes mellitus complication status: without complication Qualified Code(s): E11.9 - Type 2 diabetes mellitus without complications Is this a current diagnosis for this admission?: Yes (5) Hypotension Qualifiers: Hypotension type: unspecified hypotension type Qualified Code(s): I95.9 - Hypotension, unspecified Is this a current diagnosis for this admission?: Yes Plan: [place] all resolved (6) Obesity Qualifiers: Obesity type: due to excess calories Qualified Code(s): E66.01 - Morbid ( severe) obesity due to excess calories Is this a current diagnosis for this admission?: Yes (7) Cough Is this a current diagnosis for this admission?: Yes (8) Escherichia coli urinary tract infection Is this a current diagnosis for this admission?: Yes Plan: Continues IV Rocephin (9) Small bowel obstruction Is this a current diagnosis for this admission?: Yes (10) Right leg pain Is this a current diagnosis for this admission?: Yes (11) Deep vein thrombosis of left upper extremity Qualifiers: Affected thrombotic vein of extremity: unspecified vein of extremity Chronicity: acute Qualified Code(s): I82.622 - Acute embolism and thrombosis of deep veins of left upper extremity Is this a current diagnosis for this admission?: Yes Plan: Is currently on a Coumadin (12) Lumbar radiculopathy, acute Is this a current diagnosis for this admission?: Yes Plan: Current x-rays stable follow with the pain management - Time Time Spent with patient: 15-24 minutes Medications reviewed and adjusted accordingly: Yes Anticipated discharge: SNF Within: Other - Inpatient Certification Medical Necessity: Need Close Monitoring Due to Risk of Patient Decompensation Post Hospital Care: D/C Phot[employer] Contact Printer Documentation - Plan Summary Plan Summary: We will get the blood culture urine culture and the chest x-ray Empirically start some IV Rocephin Continues to current medication
--- NOTE | 2018-01-27 11:35 | RADIOLOGY REPORT (SQ) ---
EXAM DESCRIPTION: CHEST SINGLE VIEW COMPLETED DATE/TIME: 01/27/2018 11:25 am REASON FOR STUDY: fever COMPARISON: 01/15/2018 EXAM PARAMETERS: NUMBER OF VIEWS: One view. TECHNIQUE: Single frontal radiographic view of the chest acquired. RADIATION DOSE: NA LIMITATIONS: None. FINDINGS: LUNGS AND PLEURA: No new opacities, masses or pneumothorax. No pleural effusion. MEDIASTINUM AND HILAR STRUCTURES: Stable in size and contour with right hilar fullness HEART AND VASCULAR STRUCTURES: Heart stable in size. Normal vasculature. BONES: No acute findings. HARDWARE: Left-sided PICC terminating within the brachiocephalic vein and superior vena cava junction OTHER: No other significant finding. IMPRESSION: NO ACUTE RADIOGRAPHIC FINDING IN THE CHEST. TECHNICAL DOCUMENTATION: JOB ID: [id number] [employer]- All Rights Reserved Reading location - IP/workstation name: [email or web address]
[2018-01-27] MEDS: CEFTRIAXONE SODIUM 1,000 MG in DEXTROSE 5%-WATER 50 ML IV SCH (12:47)
[2018-01-27] MEDS: LACTULOSE SYRUP 20 GM/30 ML UDCUP PO SCH (12:47)
[2018-01-27] MEDS: METFORMIN HCL 500 MG TABLET PO SCH (15:29)
[2018-01-27] MEDS: ATORVASTATIN CALCIUM 10 MG TABLET PO SCH (22:45)
[2018-01-27] MEDS: WARFARIN SODIUM 5 MG TABLET PO SCH (22:49)
[2018-01-28] MEDS: LANSOPRAZOLE 30 MG TAB.RAP.DR PO SCH (05:45)
[2018-01-28] MEDS: PREGABALIN 75 MG CAPSULE PO SCH (05:45)
[2018-01-28 06:10] LABS: INTERNATIONAL RATION (INR) 2.76; PROTHROMBIN TIME 30.5 SEC (11.4-15.4)
[2018-01-28 06:22] LABS: ANION GAP 7 (5-19); BLOOD UREA NITROGEN 17 mg/dL (7-20); CALCIUM 8.1 mg/dL (8.4-10.2); CARBON DIOXIDE 28 mmol/L (22-30); CHLORIDE 99 mmol/L (98-107); GLUCOSE 165 mg/dL (75-110); POTASSIUM 4.7 mmol/L (3.6-5.0); SODIUM 134.1 mmol/L (137-145)
[2018-01-28] MEDS: POLYETHYLENE GLYCOL 3350 POWDER 17 GM/1 PACKET PO SCH (10:33)
[2018-01-28] MEDS: AMLODIPINE BESYLATE 10 MG TABLET PO SCH (10:33)
[2018-01-28] MEDS: DOCUSATE SODIUM 100 MG CAPSULE PO SCH (10:51)
[2018-01-28] MEDS: PRAMIPEXOLE DI-HCL 0.25 MG TABLET PO SCH (10:51)
[2018-01-28] MEDS: NORMAL SALINE 10 ML SDV (SCHEDULED) IV SCH (10:53)
[2018-01-28] MEDS: OXYCODONE HCL IR 5 MG TABLET PO PRN (10:53)
[2018-01-28] MEDS: TOLTERODINE TARTRATE 1 MG TABLET PO SCH (10:53)
--- NOTE | 2018-01-28 11:55 | CONSULTATION REPORT E ---
Consultation Report NAME: SAJAN HILL : 1940 AGE: 77Y DATE: 01/26/2018 425 A TO: CARLOZ VERA M.D. FROM: ZORA RUIZ M.D. Requesting Physician Consultation requested by Dr. Lopez. CONSULT REASON: Acute lumbar radiculopathy in the setting of acute right ankle fracture status post ORIF. HISTORY OF PRESENT ILLNESS: The patient is a 77-year-old female with extensive past medical history, including diabetes, morbid obesity, chronic constipation, recently hospitalized after a fall with a bimalleolar right ankle fracture. Her course has been complicated with an ORIF, SBO, and recent upper extremity DVT requiring anticoagulation. The patient states that she had a mechanical fall about 2 weeks ago and has had ankle pain ever since. She notes that currently her pain medications are making her more nauseous and she prefers to just take Tylenol. She also notes a history of right-sided symptoms shooting down her leg from her back to her foot in the past that has been more aggravated lately given the injury. She states that it has normally improved in the past and declines further escalation of medications or further imaging. She notes a prior history of extensive constipation and has not had a bowel movement since her surgery 2 days ago. She is otherwise doing well after her recent medications and has been taking Lyrica as well. PAST MEDICAL HISTORY: Reports a history of: 1. Hypertension. 2. Hyperlipidemia. 3. Hypothyroidism. 4. GERD. 5. Osteoarthritis. 6. Prior radiculopathy. PAST SURGICAL HISTORY: 1. Hysterectomy. 2. Orthopedic surgery to her left total knee. 3. Tonsillectomy. SOCIAL HISTORY: Denies smoking. Denies illicits. Denies alcohol. FAMILY HISTORY: Not pertinent. MEDICATIONS: Of note, please see MAR. ALLERGIES: HYDROMORPHONE AND MULTIPLE FOOD ALLERGIES. REVIEW OF SYSTEMS: reviewed with patient and otherwise negative other than mentioned in the HPI PHYSICAL EXAMINATION: GENERAL: Laying in bed, relaxing comfortably, watching TV. HEENT: Head normocephalic. Eyes: PERRL. EOMI. NECK: Range of motion full. RESPIRATORY: Clear to auscultation bilaterally. CARDIOVASCULAR: Regular rate and rhythm. ABDOMEN: Slightly distended with no signs of rigidity. Minimal tenderness or guarding. MUSCULOSKELETAL: Right ankle with dressing intact. PSYCHIATRIC: Anxious. Appropriate affect. IMAGING: X-ray lumbar spine showing age appropriate spondylosis without acute fracture. Ankle x-ray as noted prior to surgery minimally displaced medially malleolus, distal fibula and metaphysis fractures. ASSESSMENT: 1. Acute pain related to right malleolus fracture status post ORIF. 2. Acute lumbar radiculopathy. 3. Chronic constipation with component of OIC. PLAN: 1. Given patient's preference, will change oxycodone to attempt to minimize opioids. We have discussed her chronic constipation and prior SBO. Will continue aggressive bowel regimen and continue to minimize all opioids as possible. 2. Will schedule Tylenol 650mg q6h. 3. Will increase Lyrica to 75 mg 3 times a day with a plan to increase to 100mg TID in 2days if in house. If not, to be followed up as outpatient. 4. After discussing her acute lumbar radiculopathy, we reviewed her x-rays. Discussed consideration for MRI, but given her anticoagulation status, unlikely to be surgical or interventional candidate near term and can follow up as outpatient given her otherwise stable neurologic and physical exam. Thank you for the consult. We will follow along in the background. If there are any issues, please do not hesitate to call. DICTATING PHYSICIAN: CARLOZ VERA M.D. [id number] PHY#: [id number] ID: [id number] JOB#: [id number] ACCT: [id number] cc:CARLOZ VERA M.D. > MTDD
[2018-01-28] MEDS: LACTULOSE SYRUP 20 GM/30 ML UDCUP PO SCH (12:31)
[2018-01-28] MEDS: CEFTRIAXONE SODIUM 1,000 MG in DEXTROSE 5%-WATER 50 ML IV SCH (12:31)
[2018-01-28 12:34] VITALS: BP 94/54
--- NOTE | 2018-01-28 17:24 | PDOC DISCHARGE SUMMARY ---
General - Admit/Disc Date/PCP Admission Date/Primary Care Provider: 01/09/18 14:35 ZORA RUIZ MD Discharge Date: 01/28/18 - Discharge Diagnosis (1) Bimalleolar fracture of right ankle Is this a current diagnosis for this admission?: Yes (2) Type 2 diabetes mellitus Is this a current diagnosis for this admission?: Yes (3) Diabetes mellitus type II, controlled Is this a current diagnosis for this admission?: Yes (4) Deep vein thrombosis of left upper extremity Is this a current diagnosis for this admission?: Yes (5) Small bowel obstruction Is this a current diagnosis for this admission?: Yes - Additional Information Resuscitation Status: Full Code Discharge Diet: As Tolerated Discharge Activity: Activity As Tolerated Home Medications: Amlodipine Besylate [Norvasc 10 mg Tablet] 10 mg PO DAILY 01/09/18 Metformin HCl [Glucophage] 1,000 mg PO DAILY 01/09/18 Omeprazole 40 mg PO DAILY 01/09/18 Pramipexole Di-HCl [Pramipexole Dihydrochloride] 0.125 mg PO DAILY 01/09/18 Pravastatin Sodium [Pravachol] 40 mg PO DAILY 01/09/18 Pregabalin [Lyrica 75 mg Capsule] 75 mg PO Q12 01/09/18 Solifenacin Succinate [Vesicare] 10 mg PO DAILY 01/09/18 Valsartan/Hydrochlorothiazide [Valsartan-Hctz 320-25 mg Tab] 1 tab PO DAILY Warfarin Sodium [Coumadin 4 mg Tablet] 4 mg PO DAILY 01/09/18 History of Present Illness History of Present Illness: SAJAN HILL is a 77 year old female,She has a history of deep vein thrombosis on chronic anticoagulation with Coumadin, type II diabetes mellitus , morbid obesity she was out with family, twisted her right ankle lost balance fell and sustained fracture the left ankle bones, she sustained distal fibular fracture with mild subluxation of the talus.There was no antecedent chest pain, shortness of breath or loss of consciousness Hospital Course Hospital Course: Patient was admitted originally for the management of fall associated with fracture of the right ankle. She was seen by orthopedic, she was supposed to undergo surgical correction of the fracture ankle but patient had episode of vomiting, CT scan of the abdomen and pelvis was done that suggest small bowel obstruction. The orthopedic procedure was postponed because of this concern for small bowel obstruction, she was seen by a surgicalist. she was managed conservatively without any surgical intervention. Subsequent small bowel series suggests resolution of the small bowel obstruction, she subsequently had open reduction and internal fixation of the right ankle fracture. She developed deep vein thrombosis of the left upper extremities at the site of the PICC line.She was on Coumadin chronically because of history of deep vein thrombosis of the lower extremities with pulmonary embolism, DVT of the left upper extremity was managed with Lovenox at 1 mg/kg body weight subcu every 12 hours with Coumadin, she was continued on Lovenox and Coumadin until INR was therapeutic. Patient did not participate effectively with physical therapy she refused to go to residential home for rehabilitation she preferred to be discharged home with PT Physical Exam Vital Signs: Temp Pulse Resp BP Pulse Ox 99.3 F 115 H 18 94/54 L 89 L 01/28/18 10:56 01/28/18 10:56 01/28/18 12:00 01/28/18 10:56 01/28/18 10:56 Intake & Output 01/27/18 01/28/18 01/29/18 06:59 06:59 06:59 Intake Total 1340 1590 Output Total 45 Balance 1340 1545 Weight 134.2 kg 135 kg General appearance: PRESENT: no acute distress Head exam: PRESENT: atraumatic, normocephalic Eye exam: PRESENT: conjunctiva pink, EOMI, PERRLA Ear exam: PRESENT: normal external ear exam Mouth exam: PRESENT: moist, tongue midline Neck exam: PRESENT: full ROM Respiratory exam: PRESENT: clear to auscultation aliya Cardiovascular exam: PRESENT: RRR, +S1, +S2 Pulses: PRESENT: normal dorsalis pedis pul, +2 pedal pulses bilateral Vascular exam: PRESENT: normal capillary refill GI/Abdominal exam: PRESENT: normal bowel sounds, soft Rectal exam: PRESENT: deferred Neurological exam: PRESENT: alert, awake, oriented to person, oriented to place , oriented to time, oriented to situation, CN II-XII grossly intact Psychiatric exam: PRESENT: appropriate affect, normal mood Skin exam: PRESENT: dry, intact, warm Results Laboratory Results: 01/25/18 05:25 01/28/18 05:50 01/28/18 05:50 Sodium 134.1 L Potassium 4.7 Chloride 99 Carbon Dioxide 28 Anion Gap 7 BUN 17 Creatinine 0.97 Est GFR ( Amer) > 60 Est GFR (Non-Af Amer) 56 L Glucose 165 H Calcium 8.1 L 01/09/18 01/09/18 01/09/18 15:28 15:28 15:28 Creatine Kinase 179 H CK-MB (CK-2) 1.06 Troponin I < 0.012 NT-Pro-B Natriuret Pep 102 01/09/18 01/09/18 01/10/18 23:00 23:00 04:53 Creatine Kinase 221 H 190 H CK-MB (CK-2) 1.01 Troponin I < 0.012 NT-Pro-B Natriuret Pep 01/10/18 04:53 Creatine Kinase CK-MB (CK-2) 0.76 Troponin I < 0.012 NT-Pro-B Natriuret Pep Impressions: Foot X-Ray 01/09/18 13:21 IMPRESSION: No acute fracture right foot Hip/Pelvis X-Ray 01/09/18 14:10 IMPRESSION: Nothing acute. No acute fracture or dislocation right hip. Abdomen/Pelvis CT 01/14/18 00:00 IMPRESSION: 1. Findings compatible with small bowel obstruction with possible transition point in the mid abdomen. 2. Cholelithiasis. 2. Diverticulosis without evidence of acute diverticulitis. This exam was performed according to our departmental dose-optimization program, which includes automated exposure control, adjustment of the mA and/or kV according to patient size and/or use of iterative reconstruction technique. Guidance Fluoroscopy 01/15/18 00:00 IMPRESSION: SUCCESSFUL PLACEMENT OF A 5 FR DUAL LUMEN 41 CM PICC IN THE LEFT BASILIC VEIN. Interventional Vascular Procedure 01/15/18 00:00 IMPRESSION: SUCCESSFUL PLACEMENT OF A 5 FR DUAL LUMEN 41 CM PICC IN THE LEFT BASILIC VEIN. PICC Line Insertion 01/15/18 00:00 IMPRESSION: SUCCESSFUL PLACEMENT OF A 5 FR DUAL LUMEN 41 CM PICC IN THE LEFT BASILIC VEIN. KUB X-Ray 01/16/18 00:00 IMPRESSION: There may be a partial small bowel obstruction. Upper GI and Small Bowel X-Ray 01/17/18 00:00 IMPRESSION: No small bowel obstruction Abdomen X-Ray 01/17/18 06:00 IMPRESSION: Few air-filled distended small bowel loops in the mid abdomen, similar compared to previous studies. Ankle X-Ray 01/18/18 00:00 IMPRESSION: Satisfactory postoperative films Fluoroscopy 01/18/18 00:00 IMPRESSION: Intra procedural imaging and fluoro Venous Doppler Study 01/26/18 00:00 IMPRESSION: NO EVIDENCE DVT OR SVT IN THE RIGHT LEG. INCOMPLETE VISUALIZATION OF HYPOECHOIC REGION POSTERIOR RIGHT THIGH POTENTIALLY COULD REPRESENT EXTENSION OF A POPLITEAL FOSSA CYST OR HEMATOMA. CORRELATE WITH ANY HISTORY OF TRAUMA. Lumbar Spine X-Ray 01/26/18 11:36 IMPRESSION: NO ACUTE OSSEOUS ABNORMALITY. NO SIGNIFICANT CHANGE FROM 2017. Chest X-Ray 01/27/18 00:00 IMPRESSION: NO ACUTE RADIOGRAPHIC FINDING IN THE CHEST. Qualifiers - * PATIENT BEING DISCHARGED WITH ANY OF THE FOLLOWING DIAGNOSIS: No
== END 2018-01-28 13:45 | disposition home health service (06) | DRG 493 ==
LOC: ER 12:58 → EH 14:35 → 4S 16:34
PROVIDERS: ADMIT Internal Medicine; ATTEND Internal Medicine
PROC: 0D9670Z Drainage of Stomach with Drainage Device, Via Natural or Artificial Opening (ICD-10-PCS; 2018-01-14)
PROC: 02HV33Z Insertion of Infusion Device into Superior Vena Cava, Percutaneous Approach (ICD-10-PCS; 2018-01-15)
PROC: B548ZZA Ultrasonography of Superior Vena Cava, Guidance (ICD-10-PCS; 2018-01-15)
PROC: 0QSJ04Z Reposition Right Fibula with Internal Fixation Device, Open Approach (ICD-10-PCS; 2018-01-18)
PROC: 0QSG04Z Reposition Right Tibia with Internal Fixation Device, Open Approach (ICD-10-PCS; principal; 2018-01-18 07:30)
DX: S82.841A Displaced bimalleolar fracture of right lower leg, initial encounter for closed fracture (principal); Z68.43 Body mass index [BMI] 50.0-59.9, adult; K56.690 Other partial intestinal obstruction; N39.0 Urinary tract infection, site not specified; D62 Acute posthemorrhagic anemia; T82.818A Embolism due to vascular prosthetic devices, implants and grafts, initial encounter; I82.502 Chronic embolism and thrombosis of unspecified deep veins of left lower extremity; W01.0XXA Fall on same level from slipping, tripping and stumbling without subsequent striking against object, initial encounter; Y92.481 Parking lot as the place of occurrence of the external cause; E11.9 Type 2 diabetes mellitus without complications; E66.01 Morbid (severe) obesity due to excess calories; E78.5 Hyperlipidemia, unspecified; I10 Essential (primary) hypertension; E03.9 Hypothyroidism, unspecified; K21.9 Gastro-esophageal reflux disease without esophagitis; M19.90 Unspecified osteoarthritis, unspecified site; Z96.652 Presence of left artificial knee joint; E11.42 Type 2 diabetes mellitus with diabetic polyneuropathy; I95.9 Hypotension, unspecified; B96.20 Unspecified Escherichia coli [E. coli] as the cause of diseases classified elsewhere; M54.16 Radiculopathy, lumbar region; K59.09 Other constipation; Z79.4 Long term (current) use of insulin; Z91.018 Allergy to other foods; Z90.710 Acquired absence of both cervix and uterus; Z88.5 Allergy status to narcotic agent; Z79.01 Long term (current) use of anticoagulants; Z86.718 Personal history of other venous thrombosis and embolism
CPT/HCPCS: 01480; 36415; 36569; 71045; 72110; 74018; 74019; 74176; 74249; 76937; 77001; 80048; 80053; 80061; 80076; 80307; 81001; 82140; 82150; 82550; 82553; 83036; 83690; 83735; 83880; 84100; 84439; 84443; 84484; 85025; 85027; 85610; 87040; 87070; 87086; 87088; 87186; 87205; 93005; 93010; 93971; 94799; 99285; C1713; C1769; G8978-GP; G8979-GP; J0131; J0330; J0690; J0696; J1100; J1170; J1642; J1644; J1885; J2250; J2270; J2405; J2704; J3010; J3490; J7030; J7120; L4386; S0119

== ENCOUNTER → 2018-06-04 | Outpatient (CLI) | payer MEDICARE, OTHER ==
[2018-06-04 13:53] LABS: ABSOLUTE BASOPHILS # (AUTO) 0.1 10^3/uL (0.0-0.2); ABSOLUTE EOSINOPHILS # (AUTO) 0.2 10^3/uL (0.0-0.6); ABSOLUTE LYMPHOCYTES (AUTO) 1.7 10^3/uL (0.5-4.7); ABSOLUTE MONOCYTES (AUTO) 0.6 10^3/uL (0.1-1.4); ABSOLUTE NEUT (AUTO) 6.2 10^3/uL (1.7-8.2); BASOPHILS % (AUTO) 0.6 % (0-2); EOSINOPHILS % (AUTO) 2.4 % (0-6); HEMOGLOBIN 11.3 g/dL (12.0-15.5); LYMPHOCYTES % (AUTO) 19.7 % (13-45); MEAN CORPUSCULAR HEMOGLOBIN 27.7 pg (27.0-33.4); MEAN CORPUSCULAR HGB CONC 33.2 g/dL (32.0-36.0); MEAN CORPUSCULAR VOLUME 83 fl (80-97); MONOCYTES % (AUTO) 6.6 % (3-13); PLATELET COUNT 303 10^3/uL (150-450); RED BLOOD COUNT 4.08 10^6/uL (3.72-5.28); RED CELL DISTRIBUTION WIDTH 19.1 % (11.5-14.0); SEGMENTED NEUTROPHILS % (AUTO) 70.7 % (42-78); TOTAL CELLS COUNTED % (AUTO) 100 %; WHITE BLOOD COUNT 8.8 10^3/uL (4.0-10.5)
[2018-06-04 14:19] LABS: ANION GAP 12 (5-19); BLOOD UREA NITROGEN 19 mg/dL (7-20); CALCIUM 9.3 mg/dL (8.4-10.2); CARBON DIOXIDE 25 mmol/L (22-30); CHLORIDE 102 mmol/L (98-107); GLUCOSE 126 mg/dL (75-110); POTASSIUM 4.4 mmol/L (3.6-5.0); SODIUM 139.2 mmol/L (137-145)
[2018-06-04 14:27] LABS: INTERNATIONAL RATION (INR) 1.73; PARTIAL THROMBOPLASTIN TIME 43.1 SEC (23.5-35.8); PROTHROMBIN TIME 21.1 SEC (11.4-15.4)
== END ==
LOC: OD 11:46
PROVIDERS: ATTEND Orthopaedic Surgery
DX: M79.604 Pain in right leg (principal)
CPT/HCPCS: 36415; 80048; 85025; 85610; 85730

== ENCOUNTER → 2018-09-16 | Outpatient (CLI) | payer MEDICARE ==
--- NOTE | 2018-09-16 14:12 | RADIOLOGY REPORT (SQ) ---
EXAM DESCRIPTION: CHEST PA/LATERAL COMPLETED DATE/TIME: 09/16/2018 1:59 pm REASON FOR STUDY: PNEUMONIA,UNSPECIFIED ORGANISM COMPARISON: AP chest 01/27/2018, 08/05/2016 EXAM PARAMETERS: NUMBER OF VIEWS: two views TECHNIQUE: Digital Frontal and Lateral radiographic views of the chest acquired. RADIATION DOSE: NA LIMITATIONS: none FINDINGS: LUNGS AND PLEURA: No opacities, masses or pneumothorax. No pleural effusion. MEDIASTINUM AND HILAR STRUCTURES: No masses or contour abnormalities. HEART AND VASCULAR STRUCTURES: Heart normal size. No evidence for failure. BONES: No acute findings. HARDWARE: None in the chest. OTHER: No other significant finding. IMPRESSION: NO SIGNIFICANT RADIOGRAPHIC FINDING IN THE CHEST. TECHNICAL DOCUMENTATION: JOB ID: [id number] [employer]- All Rights Reserved Reading location - IP/workstation name: [facility], [id number]
== END ==
LOC: OD 13:31
PROVIDERS: ATTEND Internal Medicine
DX: J18.9 Pneumonia, unspecified organism (principal)
CPT/HCPCS: 71046

== ENCOUNTER → 2018-10-28 | Outpatient (CLI) | payer MEDICARE, OTHER ==
--- NOTE | 2018-10-28 13:41 | RADIOLOGY REPORT (SQ) ---
EXAM DESCRIPTION: VENOUS UNILATERAL UPPER COMPLETED DATE/TIME: 10/28/2018 1:23 pm REASON FOR STUDY: LUE SWELLING R22.30 LOCALIZED SWELLING, MASS AND LUMP, UNSPECIFIED UPPER COMPARISON: None. TECHNIQUE: Dynamic and static jeff scale and color images acquired of the left arm venous system. Se lected spectral images acquired with additional compression and augmentation maneuvers. The contralat eral subclavian vein and internal jugular vein were also imaged. Images stored on PACS. LIMITATIONS: None. FINDINGS: INTERNAL JUGULAR VEIN: Normal phasicity, compression, augmentation. No visualized echogeni c material on jeff scale. No defects on color images. Comparison opposite side normal. SUBCLAVIAN VEIN: Normal compression, augmentation. No visualized echogenic material on jeff scale. No defects on color images. AXILLARY VEIN: Normal compression, augmentation. No visualized echogenic material on jeff scale. No d efects on color images. BRACHIAL VEIN: Normal compression, augmentation. No visualized echogenic material on jeff scale. No d efects on color images. BASILIC VEIN: Normal compression, augmentation. No visualized echogenic material on jeff scale. No de fects on color images. CEPHALIC VEIN: Normal compression, augmentation. No visualized echogenic material on jeff scale. No d efects on color images. OTHER: No other significant finding. CONTRALATERAL SUBCLAVIAN VEIN AND INTERNAL JUGULAR VEIN: Normal phasicity, compression and augmentation. No visualized echogenic material on jeff scale. No de fects on color images. IMPRESSION: NO EVIDENCE DVT OR SVT IN THE LEFT ARM. TECHNICAL DOCUMENTATION: JOB ID: [id number] [employer]- All Rights Reserved Reading location - IP/workstation name: [email or web address]
== END ==
LOC: SP 11:43
PROVIDERS: ATTEND Internal Medicine
DX: R22.30 Localized swelling, mass and lump, unspecified upper limb (principal)
CPT/HCPCS: 93971

== ENCOUNTER 2019-01-18 09:29 | Emergency (ER) | payer MEDICARE, MEDICAID ==
[2019-01-18 09:36] VITALS: BP 140/76
[2019-01-18] MEDS ORDERED: LIDOCAINE 2% VISCOUS SOLN 20 ML UDCUP PO ONE (10:05)
--- NOTE | 2019-01-18 10:07 | ER Document Report ---
HPI - HPI Time Seen by Provider: 01/18/19 09:57 Pain Level: 2 Notes: Patient is a 78-year-old male who presents to the ED complaining of left upper dental pain #5-6 x2-3 days, with mild swelling that started x1 day. She has not noticed any obvious abscess or purulent discharge. Patient states that she is still able to eat and drink w/o difficulty. She is aware that she has very bad teeth. She has tried some twrg-oqe-sdeudjz meds with minimal relief. No other concerns or complaints. Denies any headache, fever, head injury, neck pain, hoarseness, drooling, URI, sore throat, chest pain, palpitations, syncope, cough, shortness of breath, wheeze, dyspnea, abdominal pain, nausea/vomiting/diarrhea, urinary retention, dysuria, hematuria, or rash. - ROS Systems Reviewed and Negative: Yes All other systems reviewed and negative - EENT EENT: REPORTS: Ear Pain - right ear - REPRODUCTIVE Reproductive: DENIES: : Past Medical History - Social History Smoking Status: Never Smoker Frequency of alcohol use: None Drug Abuse: None Family History: Reviewed & Not Pertinent, DM Patient has suicidal ideation: No Patient has homicidal ideation: No - Past Medical History Cardiac Medical History: Reports: Hx Hypercholesterolemia - meds x 3+ years , Hx Hypertension - meds x 3+ years Denies: Hx Atrial Fibrillation, Hx Congestive Heart Failure, Hx Coronary Artery Disease, Hx Heart Attack, Hx Peripheral Vascular Disease, Hx Heart Murmur Neurological Medical History: Reports: Hx Cerebrovascular Accident - 1976, denies neuro deficits. Denies: Hx Seizures Endocrine Medical History: Reports: Hx Diabetes Mellitus Type 2, Hx Hypothyroidism. Denies: Hx Graves' Disease, Hx Hyperthyroidism Renal/ Medical History: Denies: Hx Peritoneal Dialysis GI Medical History: Reports: Hx Gastroesophageal Reflux Disease - Prilosec PRN. Denies: Hx Crohn's Disease, Hx Hiatal Hernia, Hx Irritable Bowel, Hx Liver Failure, Hx Pancreatitis, Hx Ulcer Musculoskeletal Medical History: Reports Hx Arthritis, Denies Hx Fibromyalgia, Denies Hx Multiple Sclerosis, Denies Hx Muscular Dystrophy, Denies Hx Systemic Lupus Erythematosus Psychiatric Medical History: Denies: Hx Dementia Traumatic Medical History: Denies: Hx Fractures Past Surgical History: Reports: Hx Hysterectomy, Hx Orthopedic Surgery - tkr aliya, Hx Tonsillectomy. Denies: Hx Appendectomy, Hx Bowel Surgery, Hx Section, Hx Cholecystectomy, Hx Colostomy, Hx Coronary Artery Bypass Graft, Hx Gastric Bypass Surgery, Hx Herniorrhaphy, Hx Mastectomy, Hx Pacemaker, Hx Tubal Ligation - Immunizations Immunizations up to date: Yes Vertical Provider Document - CONSTITUTIONAL Agree With Documented VS: Yes Notes: PHYSICAL EXAMINATION: GENERAL: Well-appearing, well-nourished and in no acute distress. HEAD: Atraumatic, normocephalic. EYES: Pupils equal round and reactive to light, extraocular movements intact, sclera anicteric, conjunctiva are normal. ENT: EAC clear b/l. TM's intact b/l without erythema, fluid, or perforation. Nares patent and without discharge. oropharynx clear without exudates. No tonsilar hypertrophy or erythema. Moist mucous membranes. No sinus tenderness. Uvula midline. No palatine shift. No tongue protrusion. No respiratory compromise. Mouth: Poor dentition. + severe decay and mild gingivitis. No obvious abscess or discharge noted. No significant facial swelling. + tenderness to tooth #5- 6. NECK: Normal range of motion, supple without lymphadenopathy. No rigidity/meningismus. LUNGS: Breath sounds clear to auscultation bilaterally and equal. No wheezes rales or rhonchi. HEART: Regular rate and rhythm without murmurs, rubs, gallops. NEUROLOGICAL: Cranial nerves grossly intact. Normal speech, normal gait. PSYCH: Normal mood, normal affect. SKIN: Warm, Dry, normal turgor, no rashes or lesions noted. - INFECTION CONTROL TRAVEL OUTSIDE OF THE [place] IN LAST 30 DAYS: No Course - Re-evaluation Re-evalutation: 01/18/19 10:11 Patient is an afebrile, well-hydrated, 78-year-old female who presents to the ED with dental pain, suspect nerve root etiology versus infection. Vitals are acceptable. PE is otherwise unremarkable. No I&D, labs, or imaging warranted at this time based on H&P. Viscous lidocaine dispensed today. I will send her home with a prescription for penicillin. Low suspicion for any meningitis, sepsis, peritonsillar/pharyngeal abscess, respiratory compromise, Manuel's, temporal arteritis, or other emergent systemic condition at this time. Patient is aware this condition can change from initial presentation and she needs to monitor symptoms closely. Conservative measures otherwise for symptoms. Call to schedule an appointment with a dentist for further evaluation and management. Recheck with your PCM this week as well. Return to the ED with any worsening/concerning symptoms otherwise as reviewed in discharge. Patient is in agreement. - Vital Signs Vital signs: Temp Pulse Resp BP Pulse Ox 98.1 F 83 18 140/76 H 96 01/18/19 09:35 01/18/19 09:35 01/18/19 09:35 01/18/19 09:35 01/18/19 09:35 Discharge - Discharge Clinical Impression: Pain, dental Condition: Stable Disposition: HOME, SELF-CARE Instructions: Penicillin V K ([facility]), Toothache ([facility]) Additional Instructions: Commiskey and floss twice daily Maintain fluid intake Take antibiotics as directed Mouthwash, salt water gargles, peroxide rinse as needed Tylenol/ibuprofen as needed Recheck with PCM this week Call and schedule an appointment with your dentist for further evaluation Return to the ED with any worsening symptoms and/or development of fever, headache, facial swelling, swelling of lips/tongue/throat, trouble swallowing, drooling, hoarseness, neck pain/stiffness, chest pain, palpitations, syncope, shortness of breath, trouble breathing, abdominal pain, n/v/d, numbness/tingling, or other worsening symptoms that are concerning to you. Prescriptions: Penicillin V Potassium [Penicillin Vk 250 mg Tablet] 500 mg PO BID #40 tablet Forms: Elevated Blood Pressure Referrals: ZORA RUIZ MD [Primary Care Provider] - Follow up as needed [facility] [Provider Group] - Follow up in 1 week
== END 2019-01-18 10:18 | disposition home or self-care (01) ==
LOC: ER 09:29
DX: K08.89 Other specified disorders of teeth and supporting structures (principal); R22.0 Localized swelling, mass and lump, head; I10 Essential (primary) hypertension; Z79.899 Other long term (current) drug therapy; E11.9 Type 2 diabetes mellitus without complications
CPT/HCPCS: 99282; J3490

== ENCOUNTER 2019-02-13 08:12 | Day surgery (SDC) | payer MEDICARE, MEDICAID ==
[~2019-02-13 08:12] MED LIST: CHONDR SU A NA/HYALUR INTRAOC KIT (SURGICARE) ONE; EPINEPHRINE INJ/PF 1 MG/1 ML AMPULE ONE; LIDOCAINE 1%/PHENYLEPHRINE 1.5% 1 ML VIAL ONE
[2019-02-13] MEDS ORDERED: MIDAZOLAM 2 MG/2 ML INJ ONE (08:36)
[2019-02-13] MEDS: TETRACAINE HCL 0.5% OPH SOLN 4 ML OS PRN ×3 (09:05→09:44)
[2019-02-13] MEDS: TROPICAMIDE 1% OPH SOLN 3 ML OS PRN ×3 (09:05→09:27)
[2019-02-13] MEDS: CYCLOPENTOLATE 0.2%/PHENYLEPHRINE 1% OPH SOLN 2 ML OS PRN ×3 (09:05→09:27)
[2019-02-13] MEDS: BESIFLOXACIN HCL 0.6% OPH SUSP 5 ML BOTTLE OS PRN ×4 (09:05→10:07)
[2019-02-13] MEDS ORDERED: KETOROLAC TROMETHAMINE 0.45% 4 DROP/0.4 ML DROPERETTE OS PRN (09:36)
[2019-02-13] MEDS: DORZOLAMIDE HCL 2%/TIMOLOL MALEAT 0.5% OPH SOLN 10 ML OS PRN ×2 (10:07)
--- NOTE | 2019-02-13 17:29 | [facility] OPERATIVE REPORT E ---
[facility] Operative Report NAME: SAJAN HILL AGE: 78Y DATE OF SURGERY: 02/13/2019 ROOM: PREOPERATIVE DIAGNOSIS: CATARACT, LEFT EYE. POSTOPERATIVE DIAGNOSIS: CATARACT, LEFT EYE. OPERATION: Cataract extraction with insertion of an IOL of the left eye. SURGEON: ROM LUCERO M.D. ANESTHESIA: Topical. PROCEDURE: After obtaining appropriate consent, the patient's left eye was prepped and draped in sterile fashion as well as the surgeon in a sterile manner and cataract surgery was started. First a paracentesis blade was used to make a side-port incision. Viscoelastic was used to inflate the anterior chamber. Next a 2.4 mm incision was made with a 2.4 mm blade, clear corneal temporally. A continuous capsulorrhexis was made using a cystotome and Utrata forceps. Following this hydrodissection was carried out to make the lens fully loose and mobile and it was rotated 90 degrees. Following this, a vrfmbz-yut-gzioxur technique was used to phacoemulsify the lens with a CDE of 11.06. The remaining cortex was removed with irrigation/aspiration. Provisc was instilled into the capsular bag to inflate the bag. A SN60WF, 23.0 diopter lens was placed. The remaining viscoelastic material was removed with irrigation/aspiration. Following this, the incision was found to be watertight. Besivance was instilled into the eye and a protective shield was placed over the eye. The patient returned to the postoperative recovery in stable condition. DICTATING PHYSICIAN: ROM LUCERO M.D. [id number] PHY#: [id number] ID: [id number] JOB#: [id number] ACCT: [id number] cc:ROM LUCERO M.D. >
--- NOTE | 2019-02-13 17:29 | [facility] DISCHARGE SUMMARY E ---
[facility] Discharge Summary NAME: SAJAN HILL AGE: 78Y ADMITTED: 02/13/2019 DISCHARGED: This is a 78-year-old female who underwent cataract extraction of the left eye. DIAGNOSIS: Cataract left eye. She underwent surgery because she was having difficulty seeing small print. She should be on a regular diet. No bending at the waist and no heavy lifting. She should use her moxifloxacin, Prolensa, and Pred Forte at 3:00 p.m. and 8:00 p.m. and sleep with a rigid shield. I will see her for her 1-day postop tomorrow. DICTATING PHYSICIAN: ROM LUCERO M.D. [id number] PHY#: [id number] ID: [id number] JOB#: [id number] ACCT: [id number] cc:ROM LUCERO M.D. >
[2019-02-14] MEDS ORDERED: KETOROLAC TROMETHAMINE 0.45% 4 DROP/0.4 ML DROPERETTE OS PRN (05:00)
== END 2019-02-13 10:51 | disposition home or self-care (01) ==
LOC: SC 08:12
PROVIDERS: ATTEND Internal Medicine
PROC: 08RK3JZ Replacement of Left Lens with Synthetic Substitute, Percutaneous Approach (ICD-10-PCS; principal; 2019-02-13 09:45)
DX: H25.812 Combined forms of age-related cataract, left eye (principal); E11.9 Type 2 diabetes mellitus without complications; I10 Essential (primary) hypertension; E78.00 Pure hypercholesterolemia, unspecified; Z86.73 Personal history of transient ischemic attack (TIA), and cerebral infarction without residual deficits; Z88.8 Allergy status to other drugs, medicaments and biological substances; Z79.84 Long term (current) use of oral hypoglycemic drugs; Z79.899 Other long term (current) drug therapy
CPT/HCPCS: 82962; 00142; 66984; V2632; J2250; J3490 ×2; J0171; J2370; 142

== ENCOUNTER 2019-03-13 07:56 | Day surgery (SDC) | payer MEDICARE, MEDICAID ==
[~2019-03-13 07:56] MED LIST changes: -CHONDR SU A NA/HYALUR INTRAOC KIT (SURGICARE) ONE; -EPINEPHRINE INJ/PF 1 MG/1 ML AMPULE ONE; +KETOROLAC TROMETHAMINE 0.45% 4 DROP/0.4 ML DROPERETTE OD PRN; -LIDOCAINE 1%/PHENYLEPHRINE 1.5% 1 ML VIAL ONE; +MIDAZOLAM 2 MG/2 ML INJ ONE
[2019-03-13] MEDS: CYCLOPENTOLATE 0.2%/PHENYLEPHRINE 1% OPH SOLN 2 ML OD PRN ×3 (08:17→08:59)
[2019-03-13] MEDS: TROPICAMIDE 1% OPH SOLN 3 ML OD PRN ×3 (08:17→08:59)
[2019-03-13] MEDS: BESIFLOXACIN HCL 0.6% OPH SUSP 5 ML BOTTLE OD PRN ×4 (08:18→09:22)
[2019-03-13] MEDS: TETRACAINE HCL 0.5% OPH SOLN 4 ML OD PRN ×4 (08:19→09:04)
[2019-03-13] MEDS: LIDOCAINE 1%/PHENYLEPHRINE 1.5% 1 ML VIAL ONE ×2 (09:13)
[2019-03-13] MEDS: EPINEPHRINE INJ/PF 1 MG/1 ML AMPULE ONE ×2 (09:13)
[2019-03-13] MEDS: CHONDR SU A NA/HYALUR INTRAOC KIT (SURGICARE) ONE ×2 (09:13)
[2019-03-13] MEDS: DORZOLAMIDE HCL 2%/TIMOLOL MALEAT 0.5% OPH SOLN 10 ML OD PRN ×2 (09:22)
--- NOTE | 2019-03-13 19:31 | [facility] OPERATIVE REPORT E ---
[facility] Operative Report NAME: SAJAN HILL AGE: 78Y DATE OF SURGERY: 03/13/2019 ROOM: PREOPERATIVE DIAGNOSIS: CATARACT, RIGHT EYE. POSTOPERATIVE DIAGNOSIS: CATARACT, RIGHT EYE. OPERATION: Cataract extraction with insertion of an IOL of the right eye. SURGEON: ROM LUCERO M.D. ANESTHESIA: Topical. PROCEDURE: After obtaining appropriate consent, the patient's right eye was prepped and draped in sterile fashion as well as the surgeon in a sterile manner and cataract surgery was started. First a paracentesis blade was used to make a side-port incision. Viscoelastic was used to inflate the anterior chamber. Next a 2.4 mm incision was made with a 2.4 mm blade, clear corneal temporally. A continuous capsulorrhexis was made using a cystotome and Utrata forceps. Following this hydrodissection was carried out to make the lens fully loose and mobile and it was rotated 90 degrees. Following this, a siayks-zae-jjwriii technique was used to phacoemulsify the lens with a CDE of 9.14. The remaining cortex was removed with irrigation/aspiration. Provisc was instilled into the capsular bag to inflate the bag. A SN60WF, 23.0 diopter lens was placed. The remaining viscoelastic material was removed with irrigation/aspiration. Following this, the incision was found to be watertight. Besivance was instilled into the eye and a protective shield was placed over the eye. The patient returned to the postoperative recovery in stable condition. DICTATING PHYSICIAN: ROM LUCERO M.D. [id number] [id number] PHY#: [id number] ID: [id number] JOB#: [id number] ACCT: [id number] cc:ROM LUCERO M.D. >
--- NOTE | 2019-03-13 19:36 | [facility] DISCHARGE SUMMARY E ---
[facility] Discharge Summary NAME: SAJAN HILL AGE: 78Y ADMITTED: 03/13/2019 DISCHARGED: This is a 78-year-old patient who underwent cataract extraction of the right eye. DIAGNOSIS: CATARACT RIGHT EYE. She underwent surgery because she was having difficulty seeing for reading small print. She should be on a regular diet. No bending at the waist and no heavy lifting. She should use her moxifloxacin, Pred Forte, and Prolensa at 3:00 p.m. and 8:00 p.m. and sleep with a rigid shield. I will see her for her 1-day postop tomorrow. DICTATING PHYSICIAN: ROM LUCERO M.D. [id number] [id number] PHY#: [id number] ID: [id number] JOB#: [id number] ACCT: [id number] cc:ROM LUCERO M.D. >
== END 2019-03-13 10:19 | disposition home or self-care (01) ==
LOC: SC 07:56
PROVIDERS: ATTEND Internal Medicine
DX: H25.811 Combined forms of age-related cataract, right eye (principal); Z96.1 Presence of intraocular lens; I10 Essential (primary) hypertension; E11.9 Type 2 diabetes mellitus without complications; J45.909 Unspecified asthma, uncomplicated; I69.354 Hemiplegia and hemiparesis following cerebral infarction affecting left non-dominant side
CPT/HCPCS: 66984; 82962; 00142; V2632; J2250; J3490 ×2; A9270; J0171; J2370; 142